=== PATIENT | female | born 1990 | race Caucasian/White ===

== ENCOUNTER → 2017-08-20 13:45 | Outpatient (CLI) | payer MEDICAID, SELFPAY ==
--- NOTE | 2017-08-20 13:45 | DT_ITS ---
This patient was seen during an EMR downtime August 19, 2017 - August 26, 2017. This patient may have a combination of paper and electronic documentation or all paper documentation. All documentation is viewable within the e-chart portion of [facility] for each patient visit.
--- NOTE | 2017-08-20 13:45 | DT_ITS ---
This patient was seen during an EMR downtime August 19, 2017 - August 26, 2017. This patient may have a combination of paper and electronic documentation or all paper documentation. All documentation is viewable within the e-chart portion of [employer] for each patient visit.
[2017-09-04 09:44] LABS: HPV APTIMA, High Risk Negative (Negative)
== END ==
PROVIDERS: Visit Provider Obstetrics & Gynecology
DX: Z12.4 Encounter for screening for malignant neoplasm of cervix (principal)
CPT/HCPCS: 88175; G0145

== ENCOUNTER → 2018-12-16 15:15 | Outpatient (CLI) | payer MEDICAID, SELFPAY ==
[2017-03-31 22:35] VITALS: BMI 19.1
== END ==
PROVIDERS: Visit Provider Obstetrics & Gynecology
DX: Z12.4 Encounter for screening for malignant neoplasm of cervix (principal); Z11.3 Encounter for screening for infections with a predominantly sexual mode of transmission

== ENCOUNTER → 2019-01-27 13:45 | Outpatient (CLI) | payer MEDICAID, SELFPAY ==
--- NOTE | 2019-01-27 | IMM_PTH ---
PATIENT: BELLA LORENZANA LOC: [facility] U#:[id number] AGE/SX: 34/F ROOM: RE01/27/[address]: Dr. Roberta Romeo MD : 1990 BED: DIS: SPEC #: [id number] RECD: 01/29/19 11:34 STATUS: DEQUAN ISAIAH #: [id number] STEPHANIE: 01/27/19 00:[address]: Roberta Childs DEPT: IMMUNOHISTOCHEMISTRY RECD BY: Rita Manuel Tissues: A - Uterine cervix, NOS Procedures: p16 (initial) KI-67 (add) PHYSICIAN & INSTITUTION [place] [id number] SPECIMEN INFORMATION: Tissue Source: A - Cervix, 9 o'clock, biopsy Clinical Info: Mild dysplasia, ASCUS, positive HPV Specimen Number: [id number] CPT code: 46848, 92433 METHODOLOGY: Deparaffinized sections of prefer/formalin-fixed tissue or PAP/DQ stained slides are incubated with monoclonal/polyclonal antibodies/oligonucleotide probes. Localization is made via biotin free immunoperoxidase method. Appropriate controls are performed and reacted as expected. Results on target cell population are indicated in the following table: RESULTS: ANTIBODY / CLONE RESULT Block A P16 (E6H4) positive, focal and patchy Ki-67 (30-9) negative These tests were developed and their performance characteristics determined by [facility]. They may not have been cleared or approved by the U.S. Food and Drug Administration. The FDA has determined that such clearance or approval is not necessary. The above immunohistochemical/dualISH markers are ordered and reviewed by the Pathologist. INTERPRETATION: A. Cervix, 9 o'clock, biopsy: Focal minimal changes suspicious for HPV cytopathic effects. SJ:phu 01/29/19
--- NOTE | 2019-01-27 11:45 | CER_PTH ---
PATIENT: BELLA LORENZANA [facility][id number] AGE/SX: 34/F ROOM: RE01/27/[address]: Dr. Roberta Romeo MD : 1990 BED: DIS: SPEC #: [id number] RECD: 01/27/19 15:44 STATUS: DEQUAN ISAIAH #: [id number] STEPHANIE: 01/27/19 11:[address]: Roberta Childs DEPT: SURGICAL PATHOLOGY RECD BY: Darvin Wolf Tissues: A - Uterine cervix, NOS B - Endocervical Procedures: Surgery Specimen Level IV HEADER OPERATION: Colposcopy PRE-OP DIAGNOSIS: Mild dysplasia, ASCUS, positive HPV on pap; [facility] 12/27 TISSUE SUBMITTED: A - Cervical at 9 o'clock, B - ECC MICROSCOPIC DIAGNOSIS A. Cervix, 9 o'clock, biopsy: Focal minimal changes suspicious for HPV cytopathic effects. See comment. B. ECC: Fragments of benign endocervical epithelium and endocervical mucosa and mucous. A few fragments of benign endometrial tissue. Negative for dysplasia. CARRILLO:phu 01/29/19 COMMENT A. Immunohistochemistry ([id number]) for surrogate HPV marker (p16) will be performed and results will be reported separately. MICROSCOPIC DESCRIPTION Slides are reviewed. GROSS DESCRIPTION A - Received in fixative is one container labeled with the patient's name and designated 9 o'clock cervix. The specimen consists of multiple minute fragments of goncalves soft tissue that in aggregate measure 0.2 x 0.2 x <0.1 cm. The specimen is totally submitted in one cassette. B - Received in fixative is one container labeled with the patient's name and designated ECC. The specimen consists of multiple irregular fragments of goncalves mucoid tissue that in aggregate measure 2 x 0.5 x 0.1 cm. The specimen is totally submitted in one cassette. / CARRILLO:phu 01/28/19 TC:5 CPT: 45635 x2
== END ==
PROVIDERS: Visit Provider Obstetrics & Gynecology
DX: N87.0 Mild cervical dysplasia (principal)
CPT/HCPCS: 88305; 88341; 88342

== ENCOUNTER 2019-04-20 16:32 | Emergency (ER) | payer MEDICAID, SELFPAY ==
[2019-04-20 16:32] VITALS: BP 112/59; PULSE 92; RESP 16; TEMP 37.1; O2SAT 96; BMI 17.2
--- NOTE | 2019-04-20 17:00 | CT_ITS ---
STUDY: CT ABDOMEN AND PELVIS WITH CONTRAST REASON FOR EXAM: Female, 28 years old. RLQ PAIN RADIATION DOSAGE (If Supplied By Facility): CTDIvol = ( 8.93 ) mGy, DLP = ( 212.36 ) mGycm TECHNIQUE: Transaxial images were obtained from the dome of the diaphragm to the symphysis pubis with oral contrast. Oral and amp; IV Gastrografin and amp; 75mL Isovue-300 was administered. Sagittal and coronal images were reconstructed. Individualized dose optimization techniques were used for this CT. COMPARISON: None. FINDINGS: The visualized lung bases are unremarkable. The visualized portions of the heart are within normal limits. Normal liver. Normal gallbladder and extrahepatic biliary system. Normal spleen. Normal pancreas. Normal bilateral adrenal glands. Normal right kidney. Normal left kidney. Normal visualized stomach. Normal small intestine. Normal colon. The appendix is visualized and appears normal. Normal abdominal aorta. Normal inferior vena cava. Normal retroperitoneum. Normal urinary bladder. Normal visualized uterus. Rim-enhancing right ovarian follicle is likely related to recently ruptured follicle. Trace right adnexal fluid. Normal abdominal wall. Normal osseous structures. CT/Abdomen/Pelvis WITH Contrast IMPRESSION: Unremarkable appendix. Likely recently ruptured right ovarian follicle. Remainder is within normal limits Electronically Signed: Luis Zazueta DO at 19:14 EST Tel , Service support ,
--- NOTE | 2019-04-20 17:17 | ED.VISSUMM ---
- ER Visit Summary Date of Service: 04/20/19 Chief Complaint: Right lower quadrant abdominal pain History of Present Illness: The patient is a 28 F presenting with right lower quadrant abdominal pain. Patient states this started on Saturday. It has progressively worsened. She denies nausea, vomiting, diarrhea. Denies constipation. She complains of mild dysuria. She denies fever. She has a history of ovarian cyst in the past. Denies other complaints. Physical Examination: Vitals are stable. Patient is afebrile. Alert no acute distress. HEENT exam is unremarkable. Neck is supple. Lungs are clear and equal bilaterally. Heart is regular rate and rhythm. Abdomen is soft right lower quadrant tenderness with no guarding or rebound Extremities are unremarkable. Skin is warm and dry. No focal neurologic deficit. Remainder of exam is unremarkable. Emergency Department Course and Treatment: Patient was given morphine, Zofran IV. CBC shows white count 12.1. Chemistries unremarkable other than glucose 61. She was able to tolerate p.o. in the emergency department. Liver lipase are normal. Urinalysis unremarkable. hCG negative. CT abdomen pelvis shows unremarkable appendix. Likely recently ruptured right ovarian follicle. Remainder is within normal limits. Patient was given Toradol IV. She is given prescription for Naprosyn. Advised to follow-up with her STATE ARCHIVIST. Advised return to ED if worsening complaints. Disposition: Discharge home Impression: Abdominal pain This note was generated with [employer] dictation software. It may contain incorrect words, spelling, and punctuation that were not noted in review of the chart prior to signing ED Disposition - Plan for ED Patient: Disposition: Home or Assisted Living Instructions: Ovarian Cyst Prescriptions: Naproxen [Naprosyn] 500 mg PO BID PRN #20 tab Prescription Printed Referrals: Roberta Farmer MD [STAFF PHYSICIAN] -
[2019-04-20 17:21] LABS: Bacteria 0 SEEN /hpf (None Seen); Mucous, Urine 0 SEEN /hpf (<or=2+); Red Blood Cells-Urine 0 SEEN /hpf (0-5); White Blood Cells 0 SEEN /hpf (0-5)
[2019-04-20 17:36] LABS: Color, Urine Yellow (Yellow); Glucose, Dipstick Normal (Normal); Ketone-Dipstick Negative (Negative); Leukocyte Esterase-Dipstick Negative /ul (Negative); Nitrite-Dipstick Negative (Negative); Occult Blood-Urine Negative /ul (Negative); Protein-Dipstick Negative (Negative); Specific Gravity, Urine 1.015 (1.002-1.030); Urine Bilirubin Dipstick Negative (Negative); Urine Clarity Clear (Clear); Urine Urobilinogen Normal (Normal)
[2019-04-20 17:41] LABS: Absolute Lymphocyte Count 1.61 X10^3/uL (0.83-4.51); Basophil# 0.06 X10^3/uL; Basophil% 0.5 % (0-1); Eosinophil# 0.13 X10^3/uL; Eosinophils% 1.1 % (0-5); Hematocrit 39.4 % (37-47); Hemoglobin 12.8 g/dL (12.0-15.0); Lymphocyte # 1.61 X10^3/ul (4.0); Lymphocyte % 13.3 % (19-41); Mean Corp Hgb Conc 32.5 g/dL (32-36); Mean Corpuscular Hgb 30.5 pg (27.0-32.0); Mean Corpuscular Volume 93.8 fL (81-99); Mean Platelet Vol. 10.6 fl (6.2-12.0); Monocyte# 1.28 X10^3/uL; Monocyte% 10.6 % (0-10); NRBC Flagged by Analyzer 0 % (0-5); Neutrophil # 8.99 X10^3/uL (2.7-7.7); Neutrophil % 74.1 % (47-70); Platelet Count 283 K/mm3 (150-450); RBC Distribution Width CV 13.3 % (11.6-14.6); RBC Distribution Width SD 45.6 fl (35.1-43.9); White Blood Count 12.1 K/mm3 (4.4-11.0)
[2019-04-20 17:52] LABS: Internal QC Validated? YES +Cl - CLEAR BKGD; Pregnancy, Serum, hCG Quali. NEGATIVE Negative
[2019-04-20] MEDS: Morphine 4 MG/ML Syringe IV (17:52)
[2019-04-20] MEDS: Ondansetron 4 MG/2 ML Vial IV (17:52)
[2019-04-20 17:55] LABS: Squamous Epithelial Cells - UA 0-5 SEEN /hpf (5-10)
[2019-04-20 17:58] LABS: ALB/GLOB Ratio 1.5 RATIO (0.9-2.4); AST(SGOT) 9 U/L (15-37); Alanine Aminotransfer ALT/SGPT 18 U/L (13-56); Albumin, Serum 4.8 g/dL (3.2-5.0); Alkaline Phosphatase 52 U/L (45-117); Anion Gap 3 (5-15); BUN 9 mg/dL (7-18); BUN/Creat Ratio 13.5 RATIO (10-20); Calcium,Total 9.3 mg/dL (8.5-10.1); Chloride 111 mmol/L (98-107); Creatinine, Serum 0.67 mg/dL (0.55-1.02); EST Glomerular Filtration Rate 110 mL/min (>60); Est Glom Filt Rate - Afr Amer 133 mL/min (>60); Estimated Creatinine Clearance 85.28 ml/min; Globulin 3.2 g/dL (2.2-4.2); Glucose 61 mg/dL (74-106); Lipase 94 U/L (73-393); Potassium 3.4 mmol/L (3.5-5.1); Sodium Level 142 mmol/L (136-145)
[2019-04-20 18:41] VITALS: BP 104/59; PULSE 67; RESP 16; O2SAT 100
--- NOTE | 2019-04-20 19:40 | ED.DEP ---
ED Disposition - Plan for ED Patient: Instructions: Ovarian Cyst Prescriptions: Naproxen [Naprosyn] 500 mg PO BID PRN #20 tablet Referrals: Roberta Farmer MD [STAFF PHYSICIAN] -
[2019-04-20 19:54] VITALS: BP 94/40; PULSE 70; RESP 16; O2SAT 100
[2019-04-20] MEDS: Ketorolac 30 MG/ML Syringe IV (19:58)
== END 2019-04-20 20:00 | disposition home or self-care (01) ==
LOC: ED 17:22
PROVIDERS: Emergency Provider Emergency Medicine
DX: N83.201 Unspecified ovarian cyst, right side (principal); R10.31 Right lower quadrant pain; Z72.0 Tobacco use
CPT/HCPCS: 74177; 80053; 81001; 83690; 84703; 85025; 96374; 96375; 99283; J7030; Q9967; A4216; J2405

== ENCOUNTER → 2019-12-29 | Outpatient (CLI) | payer MEDICAID, SELFPAY ==
[2020-01-04 18:06] LABS: HPV APTIMA, High Risk Negative (Negative)
== END | disposition home or self-care (01) ==
LOC: LABSPEC 15:12
PROVIDERS: Visit Provider Obstetrics & Gynecology
DX: Z12.4 Encounter for screening for malignant neoplasm of cervix (principal)
CPT/HCPCS: 87624; 88175; G0145

== ENCOUNTER 2020-01-25 10:07 | Outpatient (RCR) | payer MEDICAID, SELFPAY | END 2020-02-15 23:59 | LOC: NS 10:07 | PROVIDERS: Visit Provider Obstetrics & Gynecology | DX: Z71.3 Dietary counseling and surveillance (principal); R63.8 Other symptoms and signs concerning food and fluid intake | CPT/HCPCS: 97802 ==

== ENCOUNTER 2020-01-27 20:25 | Emergency (ER) | payer MEDICAID, SELFPAY ==
[2020-01-27 20:26] VITALS: BP 118/60; PULSE 90; RESP 18; TEMP 36.4; O2SAT 97; BMI 17.3
--- NOTE | 2020-01-27 22:05 | ED.VIS.INJ ---
History of Present Illness Chief Complaint: Head Injury Informant: Patient Onset: Today Mechanism/Context: Blunt Injury Narrative: Patient is a 29-year-old female with history of traumatic headn injury presenting after hitting the top of her head. Patient is in a new house and was going down the stairs. States the stairs are more narrow than normal and she missed one of the last steps. This caused her to try to catch herself and fell forward. She is hit the top of her head on the door frame. She did not lose consciousness. She was bleeding and came to emergency room for further evaluation. Patient states her tetanus was within the last 5 years. Plan of a mild headache. No vision changes. No associated nausea and vomiting. No numbness or tingling. No weakness. Feels that she is been acting normally. No other complaints at this time. Tetanus Immunization: <5 years Past Medical History - Allergies and Home Meds Allergies/Adverse Reactions: Allergies No Known Allergies Allergy (Verified 01/27/20 20:28) Primary Care Physician: Care Physician,No Primary [Primary Care Provider] - Past Medical History: None Surgical History: noncontributory Lives: With Family Smoking Status: Current every day smoker Review of Systems General: Denies: Chills, Fever, Sweats Eyes: Denies: Visual changes - bilaterally, Diplopia ENT: Denies: Rhinorrhea, Sore throat Cardiovascular: Denies: Chest pain, Palpitations Respiratory: Denies: Dyspnea, Cough, Dyspnea on exertion Gastrointestinal: Denies: Abdominal pain, Nausea, Vomiting, Diarrhea, Melena, Hematochezia Genitourinary: Denies: Dysuria, Hematuria, Frequency Musculoskeletal: Denies: Back pain, Extremity Pain Skin: Reports: Wounds - scalp . Denies: Rash Neurological: Reports: Headache. Denies: Weakness, Numbness Physical Exam Vital Signs/Narrative: Vital Signs Temp Pulse Resp BP Pulse Ox 01/27/20 20:26 97.6 F L 90 18 118/60 97 Inital Vital Signs reviewed: Yes General: Well nourished, Well developed Head: Normocephalic, Trauma Eyes: Perrl, EOMI ENT: TM's clear, No hemotympanum or drainage, No trauma. Negative for: Nasal septal hematoma Neck: Nontender, Full ROM. Negative for: Spinal Tenderness, Paraspinal Tenderness Cardiovascular: Regular rate, Regular rhythm, No murmurs Respiratory: No distress, CTA bilaterally, Chest nontender Abdomen: Soft, Nontender, Nondistended, Normal bowel sounds Back: Nontender Skin: Normal color, No rash, Trauma - 2.5 cm linear laceration on the top of the head. No active bleeding. Full thickness., Wound edges are well approximated. Neurological: Alert, Oriented x3, Cranial nerves II-XII grossly intact, Normal Strength, Normal Sensation Psychological: Normal affect - Glascow Coma Scale Eye Opening: Spontaneous Motor: Obeys Commands Verbal: Oriented Coma Scale Total: 15 Diagnostic/Tx/Re-eval - Medical Decision Making Patient is evaluated for head injury. She had no loss of consciousness. She is a normal neurologic exam. I do not think a head CT is indicated at this time. She is not on any anticoagulation. She has no other injuries. Her tetanus is up-to-date. Dermabond used with hair apposition technique for laceration repair. See procedure note. Patient counseled on concussion care and indications to return the emergency room. Patient is counseled on signs and symptoms requiring return to the emergency room. Patient verbalizes agreement and understand this plan. Patient discharged home in stable and improved condition. Laceration No standard instances Length: 0.98 in Depth: Skin Shape: Linear Laceration Repair: Dermabond Irrigated (ml): 200 Comment: Hair apposition technique used to approximate the wound and then Dermabond applied. ED Disposition - Plan for ED Patient: Diagnosis: Scalp laceration, Fall Instructions: ED Laceration Skin Adhesive, ED CONTUSION Scalp [No Wake Up] Referrals: Nils Ty MD [STAFF PHYSICIAN] - Additional Instructions: Alternate ibuprofen and Tylenol as needed for headache or discomfort. Follow-up with your primary care doctor. Return the emergency room with any worsening symptoms.
== END 2020-01-27 22:35 | disposition home or self-care (01) ==
LOC: ED 21:51
PROVIDERS: Emergency Provider Emergency Medicine
DX: S01.01XA Laceration without foreign body of scalp, initial encounter (principal); W22.8XXA Striking against or struck by other objects, initial encounter; Y93.01 Activity, walking, marching and hiking; Y92.008 Other place in unspecified non-institutional (private) residence as the place of occurrence of the external cause; Y99.9 Unspecified external cause status; F17.200 Nicotine dependence, unspecified, uncomplicated
CPT/HCPCS: 12001; 99282

== ENCOUNTER 2020-01-31 14:11 | Emergency (ER) | payer MEDICAID, SELFPAY ==
[2020-01-31 14:12] VITALS: BP 100/54; PULSE 79; PULSE 90; RESP 16; TEMP 36.2; O2SAT 100; O2SAT 99; BMI 16.9
--- NOTE | 2020-01-31 14:23 | CT_ITS ---
STUDY: CT BRAIN WITHOUT CONTRAST REASON FOR EXAM: Female, 29 years old. Fell 4 days ago hitting top of head (laceration was glued), complains of continued headache, fatigue. RADIATION DOSAGE (If Supplied By Facility): CTDIvol = ( 44.99 ) mGy, DLP = ( 745.49 ) mGycm TECHNIQUE: Transaxial CT imaging of the brain was performed without administration of intravenous contrast material. Individualized dose optimization techniques were used for this CT. COMPARISON: No relevant priors. FINDINGS: Normal soft tissue structures. Normal calvarium. Normal size ventricles and extra-axial spaces for the patient''s age. Normal white matter tracts of the cerebral hemispheres. Normal basal ganglia and thalami. Normal brainstem. Normal cerebellum. There is no intracranial hemorrhage. There are no findings of an acute ischemic infarction. Normal visualized paranasal sinuses. CT/Brain/Head without Contrast IMPRESSION: Normal unenhanced CT scan of the brain. Electronically Signed: Joyce Ferreira MD at 15:08 EST Tel , Service support ,
--- NOTE | 2020-01-31 14:28 | ED.VISSUMM ---
- ER Visit Summary Date of Service: 01/31/20 Chief Complaint: Headache History of Present Illness: The patient is a 29 F who returns to the ED after headache. She was seen in the emergency department 4 days ago after falling down some steps. She did hit her head. No LOC at the time. She sustained a scalp laceration. She opted not to have any imaging studies at that time and had her laceration repaired with Dermabond. She continues to have a headache and is feeling more fatigued at home. Denies any slurred speech or facial droop. No weakness of her arms or legs. She takes no blood thinning medications. Physical Examination: Vital signs reviewed. Her scalp does have a healing laceration which is healing appropriately. HEENT exam unremarkable. Heart is regular rate and rhythm without murmurs. Lungs are clear to auscultation. Abdomen is soft and nontender. Her back is nontender. Extremities reveal no edema. Skin exam normal. Neurologic exam normal. Test Results: CAT scan of the head is normal Emergency Department Course and Treatment: The patient's CAT scan is unremarkable for any traumatic injury. Patient will continue NSAIDs for headache at home. She will follow-up with her PCP for further testing if her headache persists. Treatment Plan: [] Disposition: Discharge Impression: Headache status post trauma This note was generated with [employer] dictation software. It may contain incorrect words, spelling, and punctuation that were not noted in review of the chart prior to signing ED Disposition - Plan for ED Patient: Disposition: Home or Assisted Living Instructions: ED Headache Unspecified Referrals: Care Physician,No Primary [Primary Care Provider] - Lizzie Cowan MD [STAFF PHYSICIAN] -
[2020-01-31 15:20] VITALS: BP 102/62; RESP 15; O2SAT 100
== END 2020-01-31 15:21 | disposition home or self-care (01) ==
PROVIDERS: Emergency Provider Emergency Medicine
DX: R51.9 Headache, unspecified (principal); W10.9XXA Fall (on) (from) unspecified stairs and steps, initial encounter
CPT/HCPCS: 70450; 99282

== ENCOUNTER 2020-12-22 19:33 | Emergency (ER) | payer MEDICAID, SELFPAY ==
[2020-12-22 19:35] VITALS: BP 90/56; PULSE 65; RESP 16; TEMP 37.4; O2SAT 97; BMI 17.6
--- NOTE | 2020-12-22 20:45 | EX.ED.DYSGE1 ---
HPI History of Present Illness Chief Complaint: General Illness Informant: patient Onset/Context/Timing Onset: Today Current Severity: Gone Narrative Narrative: Patient presents needing a Covid test so that she can return to work. Patient's son was seen here in the emergency department tonight and tested positive for Covid. Mother denies any symptoms for Covid. Mother states that her boss requires her to have a negative Covid test because of the close exposure to Covid. PFSH PFSH no medical history Home Medications mometasone 50 mcg/actuation nasal spray 2 spray INTRANASAL DAILY PRN #17 gm 06/14/20 [Rx Last Taken Unknown] Allergy/AdvReac Type Severity Reaction Status Date / Time No Known Allergies Allergy Verified 12/22/20 19:34 Surgical History H/O tubal ligation Social History Smoking Status: Current every day smoker tobacco type: cigarettes ROS ROS ED Constitutional Constitutional ED: Denies chills or fever(s) Eyes Eyes: Denies blurry vision or change in vision ENT ENT ED: Denies rhinorrhea or sore throat Cardiovascular Cardiovascular: Denies chest pain or palpitations Respiratory/Chest Respiratory/Chest: Denies cough or dyspnea Gastrointestinal Gastrointestinal: Denies nausea or vomiting Genitourinary Genitourinary ED: Denies dysuria or hematuria Musculoskeletal Musculoskeletal: Denies back pain or neck pain Integumentary Denies abscess or rash Neurologic Neurologic: Denies headache(s) or weakness Allergic/Immunologic Allergic/Immunologic ED: Denies mouth swelling or urticaria EXAM Physical Exam Const Vital Signs: 12/22/20 19:35 12/22/20 19:39 Temperature 99.3 F H Temperature Source Temporal Pulse Rate 65 Respiratory Rate 16 Respiratory Effort Normal Non-Labored Respiratory Pattern Normal Blood Pressure 90/56 L Blood Pressure Mean 67 Pulse Ox 97 Oxygen Delivery Method Room Air Positive well nourished and well developed General Appearance ED: well developed HEENT Reports moist mucous membranes Neck supple and no JVD Resp normal respiratory effort and clear to auscultation bilaterally Cardio regular rate and regular rhythm GI normal to inspection, nondistended, normoactive bowel sounds and non-tender Palpation: soft Extremity normal to inspection General Extremety ED: Negative for edema or tenderness General Extremity: Negative for edema Neuro oriented x3, CN's II-XII intact bilaterally and no sensory deficits noted Sensorium / Orientation: alert Motor Exam: strength 5/5 throughout Psych mental status grossly normal MDM MDM MDM Narrative Medical decision making narrative: COVID-19 rapid antigen was obtained and was negative. Patient stated that she told her boss this and he told her that she needed a PCR test. This was ordered. This will be a send out test. Patient was instructed to quarantine until her results come back. Patient was instructed to follow-up with her primary care physician in 5 to 7 days. Patient understood and was agreeable with the plan. All questions were answered. Discharge Plan Triage Chief Complaint: General Illness ED Provider: Jah Kenny Dx/Rx/DC Orders Clinical Impression: Close exposure to COVID-19 virus Instructions: Coronavirus Disease 2019 (COVID-19): Overview Prescriptions: No Action mometasone [Nasonex] 50 mcg/actuation spray,non-aerosol 2 spray INTRANASAL DAILY PRN (Reason: allergy symptoms) Qty: 17 RF: 0 Primary Care Provider: Care Physician,No Primary Referrals: Colby Dupree MD [NON-STAFF] - 5-7 Days Care Physician,No Primary [Primary Care Provider] - Disposition Disposition: Home, Self Care Discharge Date/Time: 12/22/20 21:09
[2020-12-22 23:22] LABS: Probe Check PASS; Specimen Processing Control PASS
== END 2020-12-22 21:09 | disposition home or self-care (01) ==
PROVIDERS: Emergency Provider Emergency Medicine
DX: Z20.822 Contact with and (suspected) exposure to COVID-19 (principal); F17.210 Nicotine dependence, cigarettes, uncomplicated
CPT/HCPCS: 87426; 87635; 99282; U0005; U0003

== ENCOUNTER 2021-04-23 12:42 | Emergency (ER) | payer MEDICAID, SELFPAY ==
[2021-04-23 12:43] VITALS: BP 113/79; PULSE 86; RESP 16; TEMP 36.6; O2SAT 98; BMI 17.2
[2021-04-23 13:28] LABS: Absolute Lymphocyte Count 2.27 X10^3/uL (0.83-4.51); Basophil# 0.05 X10^3/uL; Basophil% 0.5 % (0-1); Eosinophil# 0.08 X10^3/uL; Eosinophils% 0.9 % (0-5); Hemoglobin 11.7 g/dL (12.0-15.0); Lymphocyte # 2.27 X10^3/ul (0.83-4.51); Lymphocyte % 24.5 % (19-41); Mean Corp Hgb Conc 32.5 g/dL (32-36); Mean Corpuscular Hgb 30.2 pg (27.0-32.0); Mean Platelet Vol. 11.2 fl (6.2-12.0); Monocyte# 0.83 X10^3/uL; NRBC Flagged by Analyzer 0 % (0-5); Neutrophil # 6.01 X10^3/uL (2.7-7.7); Neutrophil % 64.9 % (47-70); Platelet Count 244 K/mm3 (150-450); RBC Distribution Width CV 13.5 % (11.6-14.6); RBC Distribution Width SD 45.9 fl (35.1-43.9); Red Blood Count 3.87 M/mm3 (4.2-5.4); White Blood Count 9.3 K/mm3 (4.4-11.0)
[2021-04-23] MEDS: Ketorolac 15 MG/ML Vial IV (13:30)
--- NOTE | 2021-04-23 13:36 | EDS_ITS ---
HPI <JOSE CARLOS Coffman - Last Filed: 04/23/21 21:09> History of Present Illness Chief Complaint: Abd Pain Narrative Narrative: 30-year-old female with PMH of tubal ligation, ovarian cysts presents with abdominal pain. Over the last few days she has had diffuse abdominal pain worse in her lower pelvic region and epigastric regions. Yesterday she started her menstrual cycle and today had intercourse which caused worsening pain and heavier bleeding. She denies fever, chills, nausea, vomiting, or urinary or bowel changes. No recent vaginal discharge. She states she drinks alcohol on the weekends and yesterday had 2 beers and 1 shot. PFSH <JOSE CARLOS Coffman - Last Filed: 04/23/21 21:09> PFSH Medical History (Updated 04/23/21 @ 16:51 by JOSE CARLOS Coffman) Hx of ovarian cyst Home Medications naproxen 500 mg PO BID PRN #20 tab 04/23/21 [Rx Last Taken Unknown] ondansetron 4 mg PO Q8H PRN PRN #10 tab 04/23/21 [Rx Last Taken Unknown] oxycodone-acetaminophen [Percocet] 1 tab PO Q6H PRN 3 Days #12 tab 04/23/21 [Rx Last Taken Unknown] Allergy/AdvReac Type Severity Reaction Status Date / Time No Known Allergies Allergy Verified 04/23/21 12:46 Surgical History H/O tubal ligation Social History Smoking Status: Current every day smoker tobacco type: cigarettes ROS <JOSE CARLOS Coffman - Last Filed: 04/23/21 21:09> ROS ED ROS Narrative Constitutional: Negative for fever, chills, malaise. Eyes: Negative for visual change. ENT: Negative for sore throat, ear pain, rhinorrhea. CVS: Negative for palpitations, chest pain, syncope. Respiratory: Negative for shortness of breath, cough, orthopnea. GI: Positive for abdominal pain. Negative for nausea, vomiting, diarrhea, constipation, melena, hematochezia. : Negative for dysuria, hematuria or frequency. Neuro: Negative for headache, motor/sensory dysfunction. Skin: Negative for rash, abscess, or wound. Heme: Negative for easy bruising, bleeding, lymphadenopathy. EXAM <JOSE CARLOS Coffman - Last Filed: 04/23/21 21:09> Physical Exam Narrative Exam Narrative: CONST: Patient sitting in no acute distress. EYES: Normal inspection. NECK: Normal inspection. RESP: No respiratory distress, CTAB. CVS: Regular rate and rhythm, no murmur, no gallop. ABD: Soft with diffuse tenderness worse in bilateral lower quadrants, no guarding or rebound, nondistended, no hepatosplenomegaly. Back: Normal inspection, no CVA tenderness. : Normal external genitalia, moderate amount of dark red blood in the vaginal vault with no evidence of laceration or tear, normal-appearing cervix. SKIN: Color normal, no rash, warm, dry, intact. EXTREMITIES: Normal appearance, no pedal edema. NEURO: Oriented x4. PSYCH: Normal affect. Const Vital Signs: 04/23/21 12:43 Temperature 97.9 F Temperature Source Oral Pulse Rate 86 Respiratory Rate 16 Blood Pressure 113/79 Blood Pressure Mean 90 Pulse Ox 98 Oxygen Delivery Method Room Air <Dr. Flor Chappell MD - Last Filed: 04/23/21 17:32> Physical Exam Const Vital Signs: 04/23/21 12:43 Temperature 97.9 F Temperature Source Oral Pulse Rate 86 Respiratory Rate 16 Blood Pressure 113/79 Blood Pressure Mean 90 Pulse Ox 98 Oxygen Delivery Method Room Air MDM <JOSE CARLOS Coffman - Last Filed: 04/23/21 21:09> [facility] Narrative Medical decision making narrative: Patient presented with abdominal pain. She appears well nontoxic. Vital signs are within normal limits. She has diffuse abdominal tenderness with no peritoneal signs. Pelvic exam showed normal- appearing cervix with blood in the vaginal vault but no evidence of tears or lacerations. This is consistent with her being on her menstrual cycle and there is no other abnormality. Basic labs obtained and are unremarkable. Urine has blood but no infection. test is negative. CT shows 3 cm right hemorrhagic ovarian cyst. She had improvement after analgesia and is comfortable going home and I prescribed Percocet and Zofran. I advised she follow-up with her [employer] SALESPERSON and return for new or worsening symptoms. Diagnoses 1. Abdominal pain 2. Right hemorrhagic ovarian cyst Lab Data Labs: Laboratory Results - last 24 hr 04/23/21 04/23/21 04/23/21 12:55 12:55 14:38 WBC 9.3 RBC 3.87 L Hgb 11.7 L Hct 36.0 L MCV 93.0 MCH 30.2 MCHC 32.5 RDW Std Deviation 45.9 H RDW Coeff of Gi 13.5 Plt Count 244 MPV 11.2 Immature Gran % (Auto) 0.200 Neut % (Auto) 64.9 Lymph % (Auto) 24.5 [place] % (Auto) 9.0 Eos % (Auto) 0.9 Baso % (Auto) 0.5 Absolute Neuts (auto) 6.0 Absolute Lymphs (auto) 2.27 Nucleated RBC % 0 Sodium 139 Potassium 3.5 Chloride 109 H Carbon Dioxide 22.0 Anion Gap 8 BUN 12 Creatinine 0.70 Estim Creat Clear Calc 80.14 Est GFR (MDRD) Af Amer 123 Est GFR (MDRD) Non-Af 102 BUN/Creatinine Ratio 17.1 Glucose 109 H Calcium 8.9 Total Bilirubin 0.40 AST 18 ALT 15 Alkaline Phosphatase 56 Total Protein 7.7 Albumin 4.3 Globulin 3.4 Albumin/Globulin Ratio 1.3 Lipase 69 L Urine Color Yellow Urine Clarity Sl. Cloudy Urine pH 5.0 Ur Specific [place] 1.025 Urine Protein 30 H Urine Glucose (UA) Normal Urine Ketones 50 H Urine Occult Blood 250 H Urine Nitrite Negative Urine Bilirubin 1 H Urine Urobilinogen Normal Ur Leukocyte Esterase 25 H Urine RBC > 100 SEEN Urine WBC 0 SEEN Ur Squamous Epith Cells 0-5 SEEN Urine Bacteria 0 SEEN Urine Mucus 1+ Urine Test Negative Radiography Diagnostic Testing: Clinical Impression(s) from Imaging Studies Abdomen/Pelvis CT 04/23/21 15:57 IMPRESSION: 1. 3 cm right ovarian hemorrhagic cyst associated with small amount of free fluid within the pelvis. 2. Nonobstructive 3 mm left renal stone. Individualized dose optimization techniques were used for this CT. at 1634 Reported and signed by: Jeff Gonzalez MD Electronically Signed: Jeff Gonzalez MD at 16:33 EST , <Dr. Flor Chappell MD - Last Filed: 04/23/21 17:32> [facility] Lab Data Labs: Laboratory Results - last 24 hr 04/23/21 04/23/21 04/23/21 12:55 12:55 14:38 WBC 9.3 RBC 3.87 L Hgb 11.7 L Hct 36.0 L MCV 93.0 MCH 30.2 MCHC 32.5 RDW Std Deviation 45.9 H RDW Coeff of Gi 13.5 Plt Count 244 MPV 11.2 Immature Gran % (Auto) 0.200 Neut % (Auto) 64.9 Lymph % (Auto) 24.5 [place] % (Auto) 9.0 Eos % (Auto) 0.9 Baso % (Auto) 0.5 Absolute Neuts (auto) 6.0 Absolute Lymphs (auto) 2.27 Nucleated RBC % 0 Sodium 139 Potassium 3.5 Chloride 109 H Carbon Dioxide 22.0 Anion Gap 8 BUN 12 Creatinine 0.70 Estim Creat Clear Calc 80.14 Est GFR (MDRD) Af Amer 123 Est GFR (MDRD) Non-Af 102 BUN/Creatinine Ratio 17.1 Glucose 109 H Calcium 8.9 Total Bilirubin 0.40 AST 18 ALT 15 Alkaline Phosphatase 56 Total Protein 7.7 Albumin 4.3 Globulin 3.4 Albumin/Globulin Ratio 1.3 Lipase 69 L Urine Color Yellow Urine Clarity Sl. Cloudy Urine pH 5.0 Ur Specific [place] 1.025 Urine Protein 30 H Urine Glucose (UA) Normal Urine Ketones 50 H Urine Occult Blood 250 H Urine Nitrite Negative Urine Bilirubin 1 H Urine Urobilinogen Normal Ur Leukocyte Esterase 25 H Urine RBC > 100 SEEN Urine WBC 0 SEEN Ur Squamous Epith Cells 0-5 SEEN Urine Bacteria 0 SEEN Urine Mucus 1+ Urine Test Negative Radiography Diagnostic Testing: Clinical Impression(s) from Imaging Studies Abdomen/Pelvis CT 04/23/21 15:57 IMPRESSION: 1. 3 cm right ovarian hemorrhagic cyst associated with small amount of free fluid within the pelvis. 2. Nonobstructive 3 mm left renal stone. Individualized dose optimization techniques were used for this CT. 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 Patient independently examined and interviewed. Patient presents with epigastric as well as suprapubic abdominal pain ongoing for the past several days but worse today. She is currently on her menstrual cycle. Physical exam Patient lying on her side in position. Head neck examination unremarkable. Heart is regular rate and rhythm. Lung sounds are clear. Abdomen is soft with tenderness in the epigastrium and suprapubic region. No guarding or rebound. Hypoactive but present bowel sounds are noted. Lab work obtained along with analgesia. CT flank ordered. Patient has evidence of a hemorrhagic ovarian cyst. We will write patient for pain medication at home and she will follow with her [employer]. Return instructions provided. Discharge Plan Triage Chief Complaint: Abd Pain ED Provider: Babs Tellez Dx/Rx/DC Orders Clinical Impression: Ovarian cyst Instructions: ED Ovarian Cyst Prescriptions: New naproxen 500 mg tablet 500 mg PO BID PRN Qty: 20 RF: 0 oxycodone-acetaminophen [Percocet] 5-325 mg tablet 1 tab PO Q6H PRN (Reason: pain) 3 Days Qty: 12 RF: 0 ondansetron 4 mg tablet,disintegrating 4 mg PO Q8H PRN PRN (Reason: Nausea) Qty: 10 RF: 0 Primary Care Provider: Care Physician,No Primary Referrals: Care Physician,No Primary [Primary Care Provider] - Activity Restrictions/Additional Instructions: Today your CAT scan showed a 3 cm right hemorrhagic ovarian cyst which is the cause of your pain. I prescribed Percocet and naproxen for pain as well as Zofran for nausea. Please follow-up with your [employer] AND SALESPERSON. Disposition Disposition: Home, Self Care Discharge Date/Time: 04/23/21 17:10
[2021-04-23 13:39] LABS: ALB/GLOB Ratio 1.3 RATIO (0.9-2.4); AST(SGOT) 18 U/L (15-37); Alanine Aminotransfer ALT/SGPT 15 U/L (13-56); Albumin, Serum 4.3 g/dL (3.2-5.0); Alkaline Phosphatase 56 U/L (45-117); Anion Gap 8 (5-15); BUN 12 mg/dL (7-18); BUN/Creat Ratio 17.1 RATIO (10-20); Calcium,Total 8.9 mg/dL (8.5-10.1); Chloride 109 mmol/L (98-107); EST Glomerular Filtration Rate 102 mL/min (>60); Est Glom Filt Rate - Afr Amer 123 mL/min (>60); Estimated Creatinine Clearance 80.14 ml/min; Globulin 3.4 g/dL (2.2-4.2); Glucose 109 mg/dL (74-106); Lipase 69 U/L (73-393); Potassium 3.5 mmol/L (3.5-5.1); Protein, Total 7.7 g/dL (6.4-8.2); Sodium Level 139 mmol/L (136-145)
[2021-04-23] MEDS: Morphine 2 MG/ML Syringe IV (14:17)
[2021-04-23 14:43] LABS: Bacteria 0 SEEN /hpf (None Seen); White Blood Cells 0 SEEN /hpf (0-5)
[2021-04-23 14:45] LABS: Color, Urine Yellow (Yellow); Glucose, Dipstick Normal (Normal); Ketone-Dipstick 50 mg/dl (Negative); Leukocyte Esterase-Dipstick 25 /ul (Negative); Nitrite-Dipstick Negative (Negative); Occult Blood-Urine 250 /ul (Negative); Protein-Dipstick 30 mg/dl (Negative); Specific Gravity, Urine 1.025 (1.002-1.030); Urine Bilirubin Dipstick 1 mg/dL (Negative); Urine Clarity Sl. Cloudy (Clear); Urine Urobilinogen Normal (Normal)
[2021-04-23 14:54] LABS: Internal QC Validated? YES +Cl - CLEAR BKGD; Mucous, Urine 1+ /hpf (<or=2+); Pregnancy, Urine Negative Negative; Red Blood Cells-Urine > 100 SEEN /hpf (0-5); Squamous Epithelial Cells - UA 0-5 SEEN /hpf (5-10)
--- NOTE | 2021-04-23 15:57 | CT_ITS ---
EXAM: CT ABDOMEN AND PELVIS WITHOUT INTRAVENOUS CONTRAST : 1990 CLINICAL INDICATION: Pain TECHNIQUE: Helically acquired images were obtained of the abdomen and pelvis without intravenous contrast. This CT exam was performed using one or more of the following dose reduction techniques: automated exposure control, adjustment of the mA and/or kV according to patient size, and/or use of iterative reconstruction technique. This report was created using [employer] report generation technology. COMPARISON: No prior studies are available for comparison. FINDINGS: LOWER THORAX: Unremarkable. Lung bases are clear. No cardiomegaly. No significant pericardial effusion. ABDOMEN: LIVER: Unremarkable. Homogeneous. GALLBLADDER AND BILE DUCTS: Unremarkable. No calcified gallstones. No gallbladder distention or wall edema. No intra- or extrahepatic biliary ductal dilation. PANCREAS: Unremarkable. No focal cystic mass. SPLEEN: Unremarkable. Normal size without focal cystic or solid mass. ADRENALS: Unremarkable. No nodules. KIDNEYS AND URETERS: 3 mm stone noted within the lower pole of the left kidney. No hydronephrosis. STOMACH AND BOWEL: Mild fluid distention of the distal ileum and proximal colon may represent ileus. No focal inflammatory change. PELVIS: APPENDIX: Appendix is visualised and normal in appearance. BLADDER: Unremarkable. REPRODUCTIVE: Unremarkable as visualized. No mass. ABDOMEN and PELVIS: INTRAPERITONEAL SPACE: 3 cm right adnexal heterogeneous density lesion suggestive of a hemorrhagic ovarian cyst. Small amount of free fluid is present within the cul-de-sac. No free air. BONES/JOINTS: Unremarkable. No suspicious lytic or blastic abnormality. SOFT TISSUES: Unremarkable. No discrete abdominal or pelvic wall hernia. VASCULATURE: Unremarkable. Abdominal aorta is non-dilated. LYMPH NODES: Unremarkable. No enlarged lymph nodes. CT/Abdomen/Pelvis without Cont IMPRESSION: 1. 3 cm right ovarian hemorrhagic cyst associated with small amount of free fluid within the pelvis. 2. Nonobstructive 3 mm left renal stone. Individualized dose optimization techniques were used for this CT. at 1634 Reported and signed by: Jeff Gonzalez MD Electronically Signed: Jeff Gonzalez MD at 16:33 EST Reading Location ID and State: [facility] / [place] Tel , Service support ,
== END 2021-04-23 17:10 | disposition home or self-care (01) ==
PROVIDERS: Emergency Provider Physician Assistant; Visit Provider Physician Assistant
DX: N83.201 Unspecified ovarian cyst, right side (principal); F17.210 Nicotine dependence, cigarettes, uncomplicated
CPT/HCPCS: 74176; 80053; 81001; 81025; 83690; 85025; 96361; 96374; 96375; 99284; J7030; A4216

== ENCOUNTER → 2021-09-06 | Outpatient (CLI) | payer MEDICAID, SELFPAY ==
[2021-09-08 00:07] LABS: Chlamydia By Nucleic Acid AMP Negative (Negative)
[2021-09-08 19:05] LABS: Gonococcus By Nucleic Acid AMP Negative (Negative)
[2021-09-11 17:18] LABS: HPV APTIMA, High Risk Negative (Negative)
== END | disposition home or self-care (01) ==
LOC: LABSPEC 11:35
PROVIDERS: Visit Provider Obstetrics & Gynecology
DX: Z12.4 Encounter for screening for malignant neoplasm of cervix (principal); Z11.3 Encounter for screening for infections with a predominantly sexual mode of transmission
CPT/HCPCS: 87491; 87591; 87624; 88175; G0145

== ENCOUNTER → 2025-03-10 | Outpatient (CLI) | payer MEDICAID, SELFPAY ==
--- OUTSIDE RECORDS SUMMARY | 2025-03-10 11:22 | XMS RPT_ITS | CCD ---
Author Organization [facility] Care Team Providers Care Cash Management Officer Name Role Phone MELISSA MADSEN Unavailable Unavailable STUART WHITING Unavailable Unavailab le NO PRIMARY CARE, Unavailable Unavailable MADDY POOL Unavailable Unavailable STUART WHITING Unavailable Unavailab ksenia NO PRIMARY CARE, Unavailable Unavailable NO PRIMARY CARE, Unavailable Unavailable NIKA EDDY Unavailable Unavailable STUART WHITING Unavailable Unavailab le Unavailable Primary Care Provider Unavailabl e Unavailable Primary Care Provider Unavailabl e DR JANNET MARCANO DO Attending Unavailable PHYSICIAN, NONE Primary Care Unavailable WEI TRUONG DO Attending Unavailable PHYSICIAN, NONE Primary Care Unavailable Unavailable Primary Care Provider Unavailabl LALIT Sanchez Attending Unavailable LALIT MALONE Admitting Unavailable PHYSICIAN, NONE Primary Care Physician Unavailab le PHYSICIAN, NONE Primary Care Unavailable ARIS GREEN DO Attending Unavailable PHYSICIAN, NONE Primary Care Unavailable Ginger CERDA DO Attending JAKY Savage Attending Unavailable Medications Current Medications Medication Drug Class(es) Dates Sig (Normalized) Sig (Original) acetaminophen 325 mg / HYDROcodone bitartrate 5 mg oral tablet (2 sources) Opioid Agonist Start: 12-19-2023 End: 12-22-2023 take 1 tablet by mouth every six hours as needed for pain acetaminophen-hy drocodone 325 mg-5 mg oral tablet Dose = 1 tab(s), Oral, q6h, PRN for pain, # 12 tab(s), 0 Refill(s), 52.3 Start Date: 12/23/23 Status: Ordered acetaminophen 325 mg / oxyCODONE hydrochloride 5 mg oral tablet (1 source) Opioid Agonist Start: 04-23-2021 take 1 tablet by mouth every six hours Oxycodone-Acetam inophen (Percocet) 5-325 mg tablet Active 1 TABLET PO EVERY 6 HOURS 12 3 April 23, 2021 amoxicillin 500 mg / clavulanate 125 mg oral tablet (2 sources) Penicillin-class Antibacterial Start: 12-19-2023 End: 12-24-2023 take 1 tablet by mouth every twelve hours Augmentin 500 mg-125 mg oral tablet 1 tab(s), Oral, q12h, X 5 day(s), # 10 tab(s), 0 Refill(s), 12/24/23 7:46:00 PM EDT, 52.3 Start Date: 12/19/23 Stop Date: 12/24/23 Status: Ordered cephalexin 500 mg oral capsule (7 sources) Cephalosporin Antibacterial Start: 07-28-2024 End: 08-04-2024 take 1 capsule by mouth four times daily cephALEXin (KEFLEX) 500 mg capsule Indications: Acute UTI Take 1 capsule by mouth four times daily for 7 days. 28 capsule 07/28/2024 08/04/2024 Active Start: 01-11-2024 End: 01-18-2024 take 1 capsule by mouth twice daily cephALEXin (KEFLEX) 500 mg capsule Take 1 capsule by mouth two times a day for 7 days. 14 capsule 01/11/2024 01/18/2024 Active Start: 11-28-2021 End: 12-05-2021 take 1 capsule by mouth twice daily cephALEXin (KEFLEX) 500 mg capsule Take 1 capsule by mouth twice daily for 7 days. 14 capsule 0 11/28/2021 12/05/2021 Active Comment on above: Take 1 capsule by [facility] daily for 7 days. fluconazole 150 mg oral tablet (1 source) Azole Antifungal Start: 5 End: fluconazole (DIFLUCAN) 150 mg tablet Indications: Acute UTI Take 1 tablet by mouth one time only for 1 dose. Repeat in 3 days as needed. 2 tablet 07/28/2024 07/28/2024 Active fluticasone propionate 0.05 mg/actuat metered dose nasal spray (11 sources) Corticosteroid Start: 4 take 50 ug nasal route twice daily fluticasone proprionate NASAL 50 mcg/ spray 50 mcg Dose = 1 spray(s), Nostril, each, BID, 0 Refill(s) Start Date: 12/23/23 Status: Ordered Start: 04-22-2023 take 2 spray(s) by m outh once daily fluticasone (FLONASE) 50 mcg/actuation nasal spray Indications: ETD (Eustachian tube dysfunction), bilateral Use 2 Sprays in each nostril once daily. Rinse mouth after use. 1 Each 04/22/2023 Active Start: 06-05-2006 take 2 spray(s) nasa l route once daily FLUTICASONE 50 MCG/ACTUATION NASAL SPRAY AEROSOL 2 sprays each nostril daily 1 3 06/05/2006 Active Comment on above: 2 sprays each nostri l daily hydrOXYzine hydrochloride 25 mg oral tablet (8 sources) Antihistamine Start: take 1 tablet by mouth at bedtime, then take 1 tablet by mouth once hydrOXYzine HCl (ATARAX) 25 mg tablet take 1 tablet by mouth at bedtime and 1 tablet by mouth once kyle... (REFER TO PRESCRIPTION NOTES). 10/11/2023 Active lurasidone hydrochloride 20 mg oral tablet (7 sources) Atypical Antipsychotic Start: take 1 tablet by mouth once daily at mealtime lurasidone 20 mg oral tablet take 1 tablet by mouth every evening with food Start Date: 12/23/23 Status: Ordered metroNIDAZOLE 0.0075 mg/mg vaginal gel (4 sources) Nitroimidazole Antimicrobial Start: End: metroNIDAZOLE (METROGEL) 0.75 % (37.5mg/5 gram) Vaginal Gel Use 1 Applicatorful vaginally daily at bedtime for 5 days. 70 g 01/17/2024 01/22/2024 Active Start: 01-12-2024 End: 01-19-2024 take 1 tablet by mouth twice daily metroNIDAZOLE (FLAGYL) 500 mg tablet Take 1 tablet by mouth two times a day for 7 days. 14 tablet 01/12/2024 01/17/2024 Discontinued ondansetron 4 mg disintegrating oral tablet (1 source) Serotonin-3 Receptor Antagonist Start: 04-23-2021 take 4 mg by mouth every eight hours as needed Ondansetron Active 4 MG PO EVERY 8 HOURS NEEDED April 23, 2021 1:00am phenazopyridine hydrochloride 100 mg oral tablet (2 sources) Start: 07-28-2024 End: 08-02-2024 take 1 tablet by mouth three times daily as needed phenazopyridine (PYRIDIUM) 100 mg tablet Indications: Acute UTI Take 1 tablet by mouth three times a day as needed for up to 5 days. 15 tablet 07/28/2024 08/02/2024 Active Completed/Discontinued Medications Medication Drug Class(es) Dates Sig (Normalized) Sig (Original) benzonatate 100 mg oral capsule (2 sources) Non-narcotic Antitussive Start: 11-16-2022 End: 11-13-2023 take 2 capsules by mouth every eight hours as needed benzonatate (TESSALON PERLE) 100 mg capsule Take 2 capsules by mouth three times daily as needed. 30 capsule 11/16/2022 11/13/2023 Discontinued Comment on above: Take 2 capsules by m out three times daily as needed. clindamycin 300 mg oral capsule (4 sources) Lincosamide Antibacterial Start: 08-04-2022 End: 11-13-2023 take 1 capsule by mouth three times daily clindamycin (CLEOCIN) 300 mg capsule take 1 capsule by mouth three times a day for 10 days 08/04/2022 11/13/2023 Discontinued Comment on above: take 1 capsule by mo ut three times a day for 10 days escitalopram 5 mg oral tablet (10 sources) Serotonin Reuptake Inhibitor Start: 10-20-2023 End: 01-11-2024 take 1 tablet by mouth once escitalopram oxalate (LEXAPRO) 5 mg tablet Take 1 tablet by mouth every afternoon. 10/20/2023 01/11/2024 Discontinued Start: 10-08-2023 take 1 tablet by mouth once es citalopram oxalate (LEXAPRO) 10 mg tablet Take 1 tablet by mouth every afternoon. 10/08/2023 Active ferrous sulfate 325 mg oral tablet (1 source) Start: 12-14-2013 End: 01-26-2014 take 325 mg by mouth three times daily Ferrous Sulfate Discontinued 325 MG PO THREE TIMES A DAY December 14, 2013 12:00am January 26, 2014 9:23am 12 hr guaiFENesin 600 mg extended release oral tablet (3 sources) Start: 11-16-2022 End: 01-11-2024 take 2 tablets by mouth twice daily guaiFENesin (MUCINEX) 600 mg 12 hr tablet Take 2 tablets by mouth twice daily. 24 tablet 11/16/2022 01/11/2024 Discontinued (Other) Comment on above: Take 2 tablets by mo [facility] twice daily. loratadine 10 mg oral tablet (7 sources) Start: 06-05-2006 End: 11-13-2023 LORATADINE 10 MG TAB Take one(1) tablet daily. 06/05/2006 11/13/2023 Discontinued Comment on above: Take one(1) tablet d aily. 1 ml medroxyPROGESTERone acetate 150 mg/ml injection (4 sources) Progestin End: 11-13-2023 medroxyPROGESTERone (DEPO-PROVERA) 150 mg/mL injection Inject intramuscularly. 11/13/2023 Discontinued Comment on above: Inject intramuscular ly. methylPREDNISolone 4 mg oral tablet (1 source) Corticosteroid Start: 06-14-2020 End: 06-19-2020 take 1 tablet by mouth once Methylprednisolone (Medrol (Carlo)) 4 mg tablets,dose pack Discontinued 4 MG PO per package directions 05 08June 14, 2020 12:00am June 19, 2020 12:03am naproxen 500 mg oral tablet (5 sources) Nonsteroidal Anti-inflammatory Drug Start: 08-05-2022 End: 11-13-2023 take 1 tablet by mouth three times daily at mealtime naproxen (NAPROSYN) 500 mg tablet Take 1 tablet by mouth three times daily with meals. Take with food. 21 tablet 08/05/2022 11/13/2023 Discontinued Start: 04-23-2021 take 500 mg by mouth twice daily as needed Naproxen Active 500 MG PO TWICE DAILY NEEDED April 23, 2021 1:00am Comment on above: Take 1 tablet by torres three times daily with meals. Take with food. pumpkin seed extract-soy germ (AZO BLADDER CONTROL) 300 mg cap (3 sources) pumpkin seed ext ract-soy germ (AZO BLADDER CONTROL) 300 mg cap Take by mouth. 0 Active Comment on above: Take by mouth. Problems Active Problems Problem Classification Problem Date Documented Date Episodic/Chronic Appendicitis and other appendiceal conditions (2 sources) Appendicitis; Translations: [Unspecified appendicitis] Onset: 12-19-2023 Episodic Contraceptive and procreative management (1 source) Patient encounter status; Translations: [Encounter for sterilization] Episodic Diseases of mouth; excluding dental (1 source) Ulcer of mouth; Translations: [Other forms of stomatitis] 11-13-2023 Episodic E Codes: Fall (1 source) Fall; Translations: [Unspecified fall, initial encounter] Episodic Fever of unknown origin (1 source) Fever, unspecified; Translations: [Fever, unspecified fever cause] Onset: 12-20-2023 Episodic Fluid and electrolyte disorders (1 source) Dehydration; Translations: [Dehydration] Onset: 12-20-2023 Episodic Genitourinary symptoms and ill-defined conditions (2 sources) Increased frequency of urination; Translations: [Frequency of micturition] Onset: 07-28-2024 07-28-2024 Episodic Immunizations and screening for infectious disease (4 sources) Contact with or exposure to other viral diseases; Translations: [Close exposure to COVID-19 virus] Episodic Nausea and vomiting (1 source) Nausea with vomiting, unspecified; Translations: [Nausea and vomiting, unspecified vomiting type] Onset: 12-20-2023 Episodic Open wounds of head; neck; and trunk (1 source) Scalp laceration; Translations: [Laceration without foreign body of scalp, initial encounter] Episodic Other female genital disorders (1 source) History of gynecological disorder; Translations: [Personal history of other diseases of the female genital tract] Episodic Other and delivery including normal (1 source) Vaginal delivery; Translations: [Encounter for full-term uncomplicated delivery] Episodic Other upper respiratory infections (6 sources) Sore throat symptom; Translations: [Acute pharyngitis, unspecified] Onset: 07-28-2024 Episodic Otitis media and related conditions (1 source) Dysfunction of eustachian tube; Translations: [Other specified disorders of Eustachian tube, bilateral] Episodic Ovarian cyst (1 source) Cyst of ovary; Translations: [Unspecified ovarian cyst, unspecified side] Episodic Residual codes; unclassified (1 source) Gestation period, 37 weeks; Translations: [37 weeks gestation of ] Episodic Urinary tract infections (4 sources) Acute urinary tract infection; Translations: [Urinary tract infection, site not specified] Onset: 07-28-2024 Episodic Viral infection (1 source) Viral disease; Translations: [Viral infection, unspecified] Episodic Past or Other Problems Problem Classification Problem Date Documented Da te Episodic/Chronic Abdominal pain (8 sources) Right lower quadrant pain; Translations: [Abdominal pain] Onset: 12-19-2023 Episodic Results Test Name Value Interpretation Reference Range Facil ity Bacteria Ur Culton 5 Bacteria identified Cx Nom (U) ORGANISM ID: 1 10,000 -<50,000 CFU/ml Mixed microbiota No further workup. Mixed microbiota can be due to???urine???contamina tion with skin bacteria at time of collection or presence of a long-term urinary catheter. If a new culture is needed, please consider re-education of the patient on proper midstream co llection technique or straight catheterization for???urine???collecti on. Normal [facility] Comment on above: Performed By: #### 6 30-4 #### [facility] CLIA [id number] [address] [place] [address] CNOVon 07-28-2024 CNOV Office Visit (UCWSTR ) BELLA CARLIN ([id number]) 1990 F Date Time Provider Department 07/28/24 8:45 AM JAKY TANG [facility] During your visit today, we recorded the following information about you: Temperature Pulse Respiration Blood pressure 98.1 degrees 84/minute 16/minute 102/64 Weight 48.4 kg Jaky Tang PA-C 07/28/2024 9:14 AM Signed This note was created using Tenebril. Subjective Bella Carlin is a 34 year old female. Patient is a 34-year-old female who complains of mild dysuria, urinary urgency and frequency that she has been experiencing for the past 3 days. Patient also reports mild throat irritation and nonproductive cough. Patient denies fever, chills, hematuria, flank pain, nausea or other symptoms. Patient does have a history of recurrent urinary tract infection and states that her current symptoms are consistent with same. Review of Systems HENT: Positive for sore throat. Respiratory: Positive for cough. Genitourinary: Positive for dysuria, frequency and urgency. All other systems reviewed and are negative. Objective BP 102/64 Pulse 84 Temp 36.7 ?C (98.1 ?F) Resp 16 Wt 48.4 kg (106 lb 11.2 oz) LMP 01/08/2024 (Exact Date) SpO2 97% BMI 18.61 kg/m? Physical Exam Vitals and nursing note reviewed. Constitutional: Appearance: Normal appearance. She is normal weight. HENT: Head: Normocephalic and atraumatic. Right Ear: Tympanic membrane, ear canal and external ear normal. Left Ear: Tympanic membrane, ear canal and external ear normal. Nose: Nose normal. Mouth/Throat: Mouth: Mucous membranes are moist. Pharynx: Oropharynx is clear. Eyes: Extraocular Movements: Extraocular movements intact. Conjunctiva/sclera: Conjunctivae normal. Pupils: Pupils are equal, round, and reactive to light. Cardiovascular: Rate and Rhythm: Normal rate and regular rhythm. Pulses: Normal pulses. Heart sounds: Normal heart sounds. Pulmonary: Effort: Pulmonary effort is normal. Breath sounds: Normal breath sounds. Musculoskeletal: Cervical back: Normal range of motion and neck supple. Skin: General: Skin is warm and dry. Capillary Refill: Capillary refill takes less than 2 seconds. Neurological: General: No focal deficit present. Mental Status: She is alert and oriented to person, place, and time. Psychiatric: Mood and Affect: Mood normal. Behavior: Behavior normal. Thought Content: Thought content normal. Judgment: Judgment normal. Assessment and Plan Physical exam findings as noted above. Urinalysis shows leukocyte esterase with moderate blood and urine culture was ordered. Patient was provided with prescriptions for Keflex 500 mg and Pyridium 100 mg. Patient states that she typically develops vaginal yeast infections with antibiotic use and she was provided with a prescription of Diflucan 150 mg. Patient was advised that results of the urine culture be available in 2 days and she will be contacted if there is a need to change her medication based on sensitivity report. Additional supportive care was discussed and the patient verbalizes clear understanding of same. CLINICAL IMPRESSION: Acute UTI; Acute URI ASSESSMENT/PLAN: 1. Urinary frequency - ICD9: 788.41, ICD10: R35.0 (primary diagnosis) - UA DIP, URINE (POC) - BACTERIAL CULTURE, URINE 2. Acute UTI - ICD9: 599.0, ICD10: N39.0 - BACTERIAL CULTURE, URINE - CEPHALEXIN 500 MG CAPSULE - PHENAZOPYRIDINE 100 MG TABLET - FLUCONAZOLE 150 MG TABLET 3. Acute URI - ICD9: 465.9, ICD10: J06.9 MDM Number of Diagnoses or Management Options Amount and/or Complexity of Data Reviewed Clinical lab tests: ordered and reviewed Risk of Complications, Morbidity, and/or Mortality Presenting problems: low Diagnostic procedures: low Management options: annamaria Tang PA-C Allergies As of Date: 07/28/2024 (No Known Allergies) Date Reviewed: 07/28/2024 Reviewed by: Maddy Golden MA - Fully Assessed Reason for Visit: Urinary Frequency [1086] Cmt: x 3 days, cough and sore throat x 2 days Primary Visit Diagnosis:Urinary frequency [R35.0] Other Visit Diagnoses:Acute UTI [N39.0] Acute URI [J06.9] Order(s):UA DIP, URINE (POC) [[id number]] Order #: [id number]. #:[id number] BACTERIAL CULTURE, URINE [SQURCUL] Order #: [id number]. #:[id number] cephALEXin (KEFLEX) 500 mg capsuleTake 1 capsule by mouth four times daily for 7 days.Disp: 28 capsuleRfl: 0 phenazopyridine (PYRIDIUM) 100 mg tabletTake 1 tablet by mouth three times a day as needed for up to 5 days.Disp: 15 tabletRfl: 0 fluconazole (DIFLUCAN) 150 mg tabletTake 1 tablet by mouth one time only for 1 dose. Repeat in 3 days as needed.Disp: 2 tabletRfl: 0 Prescriptions as of 07/28/2024 - cephALEXin (KEFLEX) 500 mg capsule Take 1 capsule by mouth four times daily for 7 days. - phenazopyridin (more content not included)... Normal [facility] UA DIP, URINE (POC)on 2024 BILIRUBIN UA (POCT) Small Abnormal Negative [facility] CLARITY UA (POCT) Clear [facility] COLOR UA (POCT) [facility] GLUCOSE UA (POCT) Negative Negative mg/dL [facility] Hemoglobin Ql (U) Moderate Abnormal Negative [facility] Interpretation and review of laboratory results Abnormal [facility] KETONE UA (POCT) Negative Negative mg/dL [facility] LEUKOCYTES UA (POCT) Small Abnormal Negative [facility] NITRITE UA (POCT) Negative Negative [facility] PH UA (POCT) 6 4.5 - 8.0 [facility] Protein Ql (U) 100 mg/dL Abnormal Negative [facility] SPECIFIC GRAVITY UA (POCT) >=1.030 1.005 - 1.030 [facility] UROBILINOGEN UA (POCT) 0.2 Normal E.U./dL [facility] Location:[address], [place], [place], [id number] [place] [address] POINT OF CARE [facility] 01-17-2024 [facility] BELLA CARLIN ([id number]) 1990 F Date Time Provider Department 01/17/24 JOSE J COFFMAN [facility] During your visit today, we recorded the following information about you: Candace Paula LPN 01/17/2024 12:34 PM Signed Pt calling to report she picked up the Flagyl on Saturday and started it. Started with side effect in the middle of the night. Started with Stomach pain and took the 2nd dose Saturday with food and started vomiting and she can not eat . Continued to take medication thru am. When she tries to eat she gets nauseated. Pt asking if there is something something different she can take and Zofran for nausea. Pt does not have a pcp. Please advise pt. LOULOU Kenney Jessica, APRN.[employer] 01/17/2024 12:36 PM Signed Have called in vaginal suppositories, Flagyl. Quit taking oral Flagyl. Follow up with PCP for continued concerns. Please advise. Michelle Mendez MA 01/17/2024 12:52 PM Signed Patient notified of results, verbalizes understanding of instructions. Michelle Mendez MA Allergies As of Date: 01/17/2024 (No Known Allergies) Date Reviewed: 01/11/2024 Reviewed by: Liset Colmenares LPN - Fully Assessed Reason for Visit: requesting different medication [Other] Order(s):metroNIDAZOLE (METROGEL) 0.75 % (37.5mg/5 gram) Vaginal GelUse 1 Applicatorful vaginally daily at bedtime for 5 days.Disp: 70 gRfl: 0 Prescriptions as of 01/17/2024 - metroNIDAZOLE (METROGEL) 0.75 % (37.5mg/5 gram) Vaginal Gel Use 1 Applicatorful vaginally daily at bedtime for 5 days. - cephALEXin (KEFLEX) 500 mg capsule Take 1 capsule by mouth two times a day for 7 days. - lurasidone (LATUDA) 20 mg tablet Take 20 mg by mouth once daily. - hydrOXYzine HCl (ATARAX) 25 mg tablet take 1 tablet by mouth at bedtime and 1 tablet by mouth once kyle... (REFER TO PRESCRIPTION NOTES). - escitalopram oxalate (LEXAPRO) 10 mg tablet Take 1 tablet by mouth every afternoon. - fluticasone (FLONASE) 50 mcg/actuation nasal spray Use 2 Sprays in each nostril once daily. Rinse mouth after use. Problem List As Of Date 01/17/2024 Noted Resolved Abdominal pain [R10.9] 12/20/2023 Prescriptions ordered this encounter Disp Refills Start End METRONIDAZOLE 0.75 % (37.5 MG/5 GRAM* 70 g 0 01/17/2024 01/22/2024 Route: VAGINAL Sig: Use 1 Applicatorful vaginally daily at bedtime for 5 days. Medications Discontinued During This Encounter Prescriptions - metroNIDAZOLE (FLAGYL) 500 mg tablet (Discontinued) Take 1 tablet by mouth two times a day for 7 days. Encounter Status:Closed by MICHELLE MENDEZ on 01/17/24 Normal [facility] 01-12-2024 [facility] Tele[facility] ([facility]) BELLA CARLIN ([id number]) 1990 F Date Time Provider Department 01/12/24 JOSE J COFFMAN [facility] During your visit today, we recorded the following information about you: Jose J Coffman PA 01/12/2024 1:46 PM Signed Please let patient know urine culture did not reveal a UTI. She may stop the Keflex. Continue the Flagyl as prescribed for BV Michelle Mendez MA 01/12/2024 3:40 PM Signed Patient active MyChart. Patient notified via [employer] message. Michelle Mendez MA Allergies As of Date: 01/12/2024 (No Known Allergies) Date Reviewed: 01/11/2024 Reviewed by: Liset Colmenares LPN - Fully Assessed Reason for Visit: Results [95] Prescriptions as of 01/12/2024 - metroNIDAZOLE (FLAGYL) 500 mg tablet Take 1 tablet by mouth two times a day for 7 days. - cephALEXin (KEFLEX) 500 mg capsule Take 1 capsule by mouth two times a day for 7 days. - lurasidone (LATUDA) 20 mg tablet Take 20 mg by mouth once daily. - hydrOXYzine HCl (ATARAX) 25 mg tablet take 1 tablet by mouth at bedtime and 1 tablet by mouth once kyle... (REFER TO PRESCRIPTION NOTES). - escitalopram oxalate (LEXAPRO) 10 mg tablet Take 1 tablet by mouth every afternoon. - fluticasone (FLONASE) 50 mcg/actuation nasal spray Use 2 Sprays in each nostril once daily. Rinse mouth after use. Problem List As Of Date 01/12/2024 Noted Resolved Abdominal pain [R10.9] 12/20/2023 Encounter Status:Closed by MICHELLE MENDEZ on 01/12/24 Normal [facility] BACTERIAL VAGINOSIS NAATon 1 Lactobacillus crispatus+gasseri+je nsenii + Gardnerella vaginalis + Atopobium vaginae rRNA MARCIAL+probe Ql (Vag fld) Positive Abnormal Negative for bacterial vaginosis [facility] Comment on above: Order Comment: Speci men Type: SWAB Ordering Facility: [facility] Address: [address] [place] [address] Performed By: #### 3 6902-5, BVAMP #### [facility] CLIA [id number] [address] [place] [address] [place] Bacteria Ur Culton Bacteria identified Cx Nom (U) CULTURE, URINE: No growth (<1,000 CFU/ml) Normal [facility] Comment on above: Performed By: #### 6 30-4 #### [facility] CLIA [id number] [address] [place] [address] [place] C. trachomatis+N. gonorrhoea e DNA MARCIAL+probe Ql (Unsp spec)on 01-11-2024 C. trachomatis rRNA MARCIAL+probe Ql (Unsp spec) Negative Normal Negative for Chlamydia trachomatis by amplificaton [facility] Comment on above: Order Comment: Speci men Type: SWAB Ordering Facility: [facility] Address: [address] [place] [address] Performed By: #### 3 6902-5, BVAMP #### [facility] CLIA [id number] [address] [place] [address] [place] N. gonorrhoeae rRNA MARCIAL+probe Ql (Unsp spec) Negative Normal Negative for Neisseria gonorrhoeae by amplification [facility] Comment on above: Order Comment: Speci men Type: SWAB Ordering Facility: [facility] Address: [address] [place] [address] Performed By: #### 3 6902-5, BVAMP #### [facility] CLIA [id number] [address] [place] [address] [place] [place] BRIAN/TRICHOMONAS NAATon 1 C. glabrata RNA MARCIAL+probe Ql (Vag fld) Negative Normal Negative for Brian glabrata [facility] Comment on above: Order Comment: Speci men Type: SWAB Ordering Facility: [facility] Address: [address] [place] [address] Performed By: #### C VTV #### [facility] CLIA [id number] [address] [place] [address] [place] Brian sp DNA MARCIAL+probe Ql (Vag fld) Negative Normal Negative for Brian species [facility] Comment on above: Order Comment: Speci men Type: SWAB Ordering Facility: [facility] Address: [address] [place] [address] Performed By: #### C VTV #### [facility] CLIA [id number] [address] [place] [address] OF [place] T. vaginalis DNA MARCIAL+probe Ql (Unsp spec) Negative Normal Negative for Trichomonas vaginalis by amplification [facility] Comment on above: Order Comment: Speci men Type: SWAB Ordering Facility: [facility] Address: [address] [place] [address] Performed By: #### C VTV #### [facility] CLIA [id number] [address] [place] [address] [place] CNOVon 01-11-2024 CNOV Office Visit (UCTR ) BELLA CARLIN ([id number]) 1990 F Date Time Provider Department 01/11/24 2:15 PM IBRAHIMA COSTELLO [facility] During your visit today, we recorded the following information about you: Temperature Pulse Respiration Blood pressure 98.3 degrees 85/minute 20/minute 99/62 Weight Last Period 50.8 kg 01/08/24 Ibrahima Costello PA-C 01/11/2024 2:38 PM Signed This note was created using Tenebril. Subjective Bella Carlin is a 33 year old female. HPI Patient presents with a chief complaint of dysuria and frequency over the past day. Denies blood in urine. No back pain or abdominal pain. She has had UTIs before and this feels similar. No vaginal itching or discharge. She states last menstrual cycle was about a week ago. She is sexually active with 1 partner, not having any STD symptoms but would like screened while she is here. No fever. No vomiting. No rash. Review of Systems Constitutional: Negative. HENT: Negative. Eyes: Negative. Respiratory: Negative. Cardiovascular: Negative. Gastrointestinal: Negative. Genitourinary: Positive for dysuria, frequency and urgency. Negative for hematuria, pelvic pain, vaginal bleeding, vaginal discharge and vaginal pain. Musculoskeletal: Negative. All other systems reviewed and are negative. PAST MEDICAL HISTORY Diagnosis Date Adjustment disorder with depressed mood Current Outpatient Medications Medication Sig Dispense Refill lurasidone (LATUDA) 20 mg tablet Take 20 mg by mouth once daily. hydrOXYzine HCl (ATARAX) 25 mg tablet take 1 tablet by mouth at bedtime and 1 tablet by mouth once kyle... (REFER TO PRESCRIPTION NOTES). escitalopram oxalate (LEXAPRO) 10 mg tablet Take 1 tablet by mouth every afternoon. fluticasone (FLONASE) 50 mcg/actuation nasal spray Use 2 Sprays in each nostril once daily. Rinse mouth after use. 1 Each 0 cephALEXin (KEFLEX) 500 mg capsule Take 1 capsule by mouth two times a day for 7 days. 14 capsule 0 No current facility-administered medications for this visit. PAST SURGICAL HISTORY Procedure Laterality Date TYMPANOSTOMY LOCAL/TOPICAL ANESTHESIA FAMILY HISTORY Problem Relation Age of Onset Cancer Maternal Grandmother lung Social History Tobacco Use Smoking status: Every Day Current packs/day: 0.50 Types: Cigarettes Smokeless tobacco: Never Tobacco comments: smokes 3-4 ciggs Substance Use Topics Alcohol use: No Drug use: No Objective BP 99/62 Pulse 85 Temp 36.8 ?C (98.3 ?F) Resp 20 Wt 50.8 kg (111 lb 15.9 oz) LMP 01/08/2024 (Exact Date) SpO2 99% BMI 19.53 kg/m? Physical Exam Constitutional: Appearance: Normal appearance. HENT: Head: Normocephalic and atraumatic. Cardiovascular: Rate and Rhythm: Regular rhythm. Heart sounds: Normal heart sounds. Pulmonary: Effort: Pulmonary effort is normal. Breath sounds: Normal breath sounds. Abdominal: General: Abdomen is flat. Bowel sounds are normal. Palpations: Abdomen is soft. Comments: Mild suprapubic ttp. No guarding or rebound. Skin: General: Skin is warm and dry. Neurological: Mental Status: She is alert. Assessment and Plan ASSESSMENT/PLAN: 1. Acute UTI - ICD9: 599.0, ICD10: N39.0 (primary diagnosis) acute - UA positive for ben esterase and hematuria - Send urine for culture - Begin treatment with keflex for 7 days - UA DIP, URINE (POC) - URINE CULTURE 2. Screening for STD (sexually transmitted disease) - ICD9: V74.5, ICD10: Z11.3 - BACTERIAL VAGINOSIS NAAT - BRIAN/TRICHOMONAS NAAT - GONORRHEA/CHLAMYDIA NAAT JOSE CARLOS Wong-C Allergies As of Date: 01/11/2024 (No Known Allergies) Date Reviewed: 01/11/2024 Reviewed by: Liset Colmenares LPN - Fully Assessed Primary Visit Diagnosis:Acute UTI [N39.0] Other Visit Diagnosis:Screening for STD (sexually transmitted disease) [Z11.3] Order(s):UA DIP, URINE (POC) [[id number]] Order #: [id number]. #:[id number] URINE CULTURE [SQURCUL] Order #: [id number]. #:[id number] cephALEXin (KEFLEX) 500 mg capsuleTake 1 capsule by mouth two times a day for 7 days.Disp: 14 capsuleRfl: 0 BACTERIAL VAGINOSIS NAAT [SQBVAMP] Order #: [id number]. #:[id number] BRIAN/TRICHOMONAS NAAT [SQCVTV] Order #: [id number]. #:[id number] GONORRHEA/CHLAMYDIA NAAT [SQGCCT] Order #: [id number]. #:[id number] Prescriptions as of 01/11/2024 - cephALEXin (KEFLEX) 500 mg capsule Take 1 capsule by mouth two times a day for 7 days. - lurasidone (LATUDA) 20 mg tablet Take 20 mg by mouth once daily. - hydrOXYzine HCl (ATARAX) 25 mg tablet take 1 tablet by mouth at bedtime and 1 tablet by mouth once kyle... (REFER TO PRESCRIPTION NOTES). - escitalopram oxalate (LEXAPRO) 10 mg tablet Take 1 tablet by mouth every afternoon. - fluticasone (FLONASE) 50 mcg/actuation nasal spray Use 2 Sprays in each nos (more content not included)... Normal [facility] UA DIP, URINE (POC)on 2023 BILIRUBIN UA (POCT) Negative Negative [facility] CLARITY UA (POCT) Clear [facility] COLOR UA (POCT) [facility] GLUCOSE UA (POCT) Negative Negative mg/dL [facility] Hemoglobin Ql (U) Trace-intact Abnormal Negative [facility] Interpretation and review of laboratory results Abnormal [facility] KETONE UA (POCT) Trace Negative mg/dL [facility] LEUKOCYTES UA (POCT) Small Abnormal Negative [facility] NITRITE UA (POCT) Negative Negative [facility] PH UA (POCT) 6.5 4.5 - 8.0 [facility] Protein Ql (U) Trace Abnormal Negative mg/dL [facility] SPECIFIC GRAVITY UA (POCT) 1.025 1.005 - 1.030 [facility] UROBILINOGEN UA (POCT) 0.2 Normal E.U./dL [facility] Location:[facility], [address] [place] [address], [place], [place], [id number] [place] [address] POINT OF CARE [facility] Basic metabolic 2000 panelon 12-21-2023 Anion gap [Moles/Vol] 6 mmol/L Low 8-15 [facility] Comment on above: Order Comment: Speci men Type: BLOOD SPECIMEN Ordering Facility: [facility] Address: [address] [place] [address] Performed By: #### 2 4321-2 #### [facility] CLIA [id number] [address] [place] [address] [place] Calcium [Mass/Vol] 7.9 mg/dL Low 8.5-10.2 [facility] Comment on above: Order Comment: Speci men Type: BLOOD SPECIMEN Ordering Facility: [facility] Address: [address] [place] [address] Performed By: #### 2 4321-2 #### [facility] CLIA [id number] [address] [place] [address] [place] Chloride [Moles/Vol] 109 mmol/L High 98-107 [facility] Comment on above: Order Comment: Speci men Type: BLOOD SPECIMEN Ordering Facility: [facility] Address: [address] [place] [address] Performed By: #### 2 4321-2 #### [facility] CLIA [id number] [address] [place] [address] [place] CO2 [Moles/Vol] 24 mmol/L Normal 22-30 [facility] Comment on above: Order Comment: Speci men Type: BLOOD SPECIMEN Ordering Facility: [facility] Address: [address] [place] [address] Performed By: #### 2 4321-2 #### [facility] CLIA [id number] [address] Creatinine [Mass/Vol] 0.61 mg/dL Normal 0.58-0.96 [facility] Comment on above: Order Comment: Speci men Type: BLOOD SPECIMEN Ordering Facility: [facility] Address: [address] [place] [address] Performed By: #### 2 4321-2 #### [facility] CLIA [id number] [address] Creatinine and Glomerular filtration rate.predicted panel (S/P/Bld) 120 mL/min/1.73m??? Normal >=60 [facility] Comment on above: Order Comment: Speci men Type: BLOOD SPECIMEN Ordering Facility: [facility] Address: [address] [place] [address] Result Comment: Julissa mated Glomerular Filtration Rate (eGFR) is calculated using the 2020 CKD-EPI creatinine equation. This equation utilizes serum creatinine, sex, and age as parameters. The creatinine assay has traceable calibration to isotope dilution-mass spectrometry. Refer to KDIGO guidelines for clinical interpretation. In patients with unstable renal function, e.g. those with acute kidney injury, the eGFR may not accurately reflect actual GFR. Performed By: #### 2 4321-2 #### [facility] CLIA [id number] [address] [place] [address] [place] Glucose [Mass/Vol] 82 mg/dL Normal 74-99 [facility] Comment on above: Order Comment: Anamaria dumont Type: BLOOD SPECIMEN Ordering Facility: [facility] Address: [address] [place] [id number] Result Comment: The [place] [employer] Association (ADA) provides guidance for cutoff values for fasting glucose and random glucose. The ADA defines fasting as no caloric intake for at least 8 hours. Fasting plasma glucose results between 100 to 125 mg/dL indicate increased risk for diabetes (prediabetes). Fasting plasma glucose results greater than or equal to 126 mg/dL meet the criteria for diagnosis of diabetes. In the absence of unequivocal hyperglycemia, results should be confirmed by repeat testing. In a patient with classic symptoms of hyperglycemia or hyperglycemic crisis, random plasma glucose results greater than or equal to 200 mg/dL meet the criteria for diagnosis of diabetes. Reference: Standards of Medical Care in Diabetes 2016, [place] [employer] Association. Diabetes Care. 2016.39(Suppl 1). Performed By: #### 2 4321-2 #### [facility] CLIA [id number] [address] [place] [address] [place] Potassium [Moles/Vol] 3.9 mmol/L Normal 3.7-5.1 [facility] Comment on above: Order Comment: Anamaria dumont Type: BLOOD SPECIMEN Ordering Facility: [facility] Address: [address] [place] [address] Performed By: #### 2 4321-2 #### [facility] CLIA [id number] [address] [place] [id number] [place] Sodium [Moles/Vol] 139 mmol/L Normal 136-144 [facility] Comment on above: Order Comment: Anamaria dumont Type: BLOOD SPECIMEN Ordering Facility: [facility] Address: [address] [place] [address] Performed By: #### 2 4321-2 #### [facility] CLIA [id number] [address] STATES [facility] Urea nitrogen [Mass/Vol] 6 mg/dL Low 10-05 [facility] Comment on above: Order Comment: Speci men Type: BLOOD SPECIMEN Ordering Facility: [facility] Address: [address] [place] [address] Performed By: #### 2 4321-2 #### [facility] CLIA [id number] [address] [place] CBC W Auto Differential pane l (Bld)on 12-21-2023 Basophils (Bld) [#/Vol] 0.06 10*3/uL Normal <0.11 [facility] Comment on above: Order Comment: Speci men Type: BLOOD SPECIMENOrdering Facility: [facility] Address: [address] [place] [address] Performed By: #### 5 7021-8 ####[facility] [id number] [address] [place] Basophils/100 WBC (Bld) 0.9 % Normal [facility] Comment on above: Order Comment: Speci men Type: BLOOD SPECIMENOrdering Facility: [facility] Address: [address] [place] [address] Performed By: #### 5 7021-8 ####[facility] [id number] [address] Differential cell count method Nom (Bld) Auto Normal [facility] Comment on above: Order Comment: Speci men Type: BLOOD SPECIMENOrdering Facility: [facility] Address: [address] [place] [address] Performed By: #### 5 7021-8 ####[facility] [id number] [place] [address] [place] Eosinophils (Bld) [#/Vol] 0.13 10*3/uL Normal <0.46 [facility] Comment on above: Order Comment: Speci men Type: BLOOD SPECIMENOrdering Facility: [facility] Address: [address] [place] [address] Performed By: #### 5 7021-8 ####[facility] [id number] [place] [address] [place] Eosinophils/100 WBC (Bld) 1.8 % Normal [facility] Comment on above: Order Comment: Speci men Type: BLOOD SPECIMENOrdering Facility: [facility] Address: [address] [place] [address] Performed By: #### 5 7021-8 ####[facility] [id number] [place] [address] [place] Erythrocyte distribution width (RBC) [Ratio] 13.2 % Normal 11.5-15.0 [facility] Comment on above: Order Comment: Speci men Type: BLOOD SPECIMENOrdering Facility: [facility] Address: [address] [place] [address] Performed By: #### 5 7021-8 ####[facility] [id number] [place] [address] [place] Hematocrit (Bld) [Volume fraction] 33.5 % Low 36.0-46.0 [facility] Comment on above: Order Comment: Speci men Type: BLOOD SPECIMENOrdering Facility: [facility] Address: [address] [place] [address] Performed By: #### 5 7021-8 ####[facility] [id number] [place] [address] [place] Hemoglobin (Bld) [Mass/Vol] 10.5 g/dL Low 11.5-15.5 [facility] Comment on above: Order Comment: Speci men Type: BLOOD SPECIMENOrdering Facility: [facility] Address: [address] [place] [address] Performed By: #### 5 7021-8 ####[facility] [id number] [place] [address] [place] Immature granulocytes (Bld) [#/Vol] 10*3/uL Normal <0.10 [facility] Comment on above: Order Comment: Speci men Type: BLOOD SPECIMENOrdering Facility: [facility] Address: [address] [place] [address] Performed By: #### 5 7021-8 ####[facility] [id number] [address] Immature granulocytes/100 WBC (Bld) 0.3 % Normal [facility] Comment on above: Order Comment: Speci men Type: BLOOD SPECIMENOrdering Facility: [facility] Address: [address] [place] [address] Performed By: #### 5 7021-8 ####[facility] [id number] [address] [place] Lymphocytes (Bld) [#/Vol] 2.46 10*3/uL Normal 1.00-4.00 [facility] Comment on above: Order Comment: Speci men Type: BLOOD SPECIMENOrdering Facility: [facility] Address: [address] [place] [address] Performed By: #### 5 7021-8 ####[facility] [id number] [address] Lymphocytes/100 WBC (Bld) 35.0 % Normal [facility] Comment on above: Order Comment: Speci men Type: BLOOD SPECIMENOrdering Facility: [facility] Address: [address] [place] [address] Performed By: #### 5 7021-8 ####[facility] [id number] [address] [place] MCH (RBC) [Entitic mass] 30.2 pg Normal 26.0-34.0 [facility] Comment on above: Order Comment: Speci men Type: BLOOD SPECIMENOrdering Facility: [facility] Address: [address] [place] [address] Performed By: #### 5 7021-8 ####[facility] [id number] [address] MCHC (RBC) [Mass/Vol] 31.3 g/dL Normal 30.5-36.0 [facility] Comment on above: Order Comment: Speci men Type: BLOOD SPECIMENOrdering Facility: [facility] Address: [address] [place] [address] Performed By: #### 5 7021-8 ####[facility] [id number] [place] [address] [place] MCV (RBC) [Entitic vol] 96.3 fL Normal 80.0-100.0 [facility] Comment on above: Order Comment: Speci men Type: BLOOD SPECIMENOrdering Facility: [facility] Address: [address] [place] [address] Performed By: #### 5 7021-8 ####[facility] [id number] [place] [address] [place] Monocytes (Bld) [#/Vol] 0.68 10*3/uL Normal <0.87 [facility] Comment on above: Order Comment: Speci men Type: BLOOD SPECIMENOrdering Facility: [facility] Address: [address] [place] [address] Performed By: #### 5 7021-8 ####[facility] [id number] [place] [address] [place] Monocytes/100 WBC (Bld) 9.7 % Normal [facility] Comment on above: Order Comment: Speci men Type: BLOOD SPECIMENOrdering Facility: [facility] Address: [address] [place] [address] Performed By: #### 5 7021-8 ####[facility] [id number] [place] [address] [place] Neutrophils (Bld) [#/Vol] 3.68 10*3/uL Normal 1.45-7.50 [facility] Comment on above: Order Comment: Speci men Type: BLOOD SPECIMENOrdering Facility: [facility] Address: [address] [place] [address] Performed By: #### 5 7021-8 ####[facility] [id number] [place] [address] [place] Neutrophils/100 WBC (Bld) 52.3 % Normal [facility] Comment on above: Order Comment: Speci men Type: BLOOD SPECIMENOrdering Facility: [facility] Address: [address] [place] [address] Performed By: #### 5 7021-8 ####[facility] [id number] [address] [place] Nucleated RBC (Bld) [#/Vol] 10*3/uL Normal <0.01 [facility] Comment on above: Order Comment: Speci men Type: BLOOD SPECIMENOrdering Facility: [facility] Address: [address] [place] [address] Performed By: #### 5 7021-8 ####[facility] [id number] [address] [place] Nucleated RBC/100 WBC (Bld) [Ratio] 0.0 /[address] [facility] Comment on above: Order Comment: Speci men Type: BLOOD SPECIMENOrdering Facility: [facility] Address: [address] [place] [address] Performed By: #### 5 7021-8 ####[facility] [id number] [place] [address] [place] Platelet mean volume (Bld) [Entitic vol] 10.9 fL Normal 9.0-12.7 [facility] Comment on above: Order Comment: Speci men Type: BLOOD SPECIMENOrdering Facility: [facility] Address: [address] [place] [address] Performed By: #### 5 7021-8 ####[facility] [id number] [place] [address] [place] [facility] [place] Platelets (Bld) [#/Vol] 230 10*3/uL Normal 150-400 [facility] Comment on above: Order Comment: Speci men Type: BLOOD SPECIMENOrdering Facility: [facility] Address: [address] [place] [address] Performed By: #### 5 7021-8 ####[facility] [id number] [place] [address] [place] RBC (Bld) [#/Vol] 3.48 10*6/uL Low 3.90-5.20 [facility] Comment on above: Order Comment: Specyoselyn dumont Type: BLOOD SPECIMENOrdering Facility: [facility] Address: [address] [place] [address] Performed By: #### 5 7021-8 ####[facility] [id number] [address] WBC (Bld) [#/Vol] 7.03 10*3/uL Normal 3.70-11.00 [facility] Comment on above: Order Comment: Speci men Type: BLOOD SPECIMENOrdering Facility: [facility] Address: [address] [place] [address] Performed By: #### 5 7021-8 ####[facility] [id number] [address] NURSING PROGon 12-21-2023 NURSING PROG HNO ID: [id number] Author: JOSE EDUARDO MCKEON RN Service: Nursing Author Type: Registered Nurse Type: Nursing Progress Note Filed: 12/21/2023 09:19 Note Text: 0800: patient requesting to go home, educated patient on trying clear liquids to make sure N/V and abd pain doesn't return before being discharged, patient addiment about wanting to go home. Page out to Dr. Malone. 0830: discussed with patient that Dr. Malone states she will work on her D/C orders soon and that this RN would be in within the next hour or two with her paper work. Patients requesting IV to be removed, removed IV at this time. 0900: patient not present in room, gown on the bed, appears to have left without a written discharge order. Notified [facility] ([place]) and Dr. Malone. Normal [facility] PT panel Coag (PPP)on 2023 INR Coag (PPP) [Relative time] 1.1 {INR} Normal 0.9-1.3 [facility] Comment on above: Order Comment: Speci tim Type: BLOOD SPECIMENOrdering Facility: [facility] Address: [address] [place] [address] Result Comment: Vivian min K Antagonist (VKA) Therapeutic Range: INR 2 to 3 (Target INR of 2.5) Note: For patients treated with VKA drugs, such as warfarin, the [place] [employer] 2012 Guideline recommends a therapeutic INR range of 2 to 3 (target INR of 2.5). This recommendation includes high-risk patients with antiphospholipid syndrome with previous arterial or venous thromboembolism, current-generation mechanical or bioprosthetic aortic heart valve replacement. Note: Patients with mechanical aortic valve replacement and additional risk factors for thromboembolic events (atrial fibrillation, previous thromboembolism, LV dysfunction, hypercoagulable conditions) or an older generation mechanical AVR (i.e., ball in-Cage) or any mechanical MVR should have a INR therapeutic range of 2.5 to 3.5 (target INR of 3). Jeet GH, et al. Chest 2012, 141:7S-47S Yulissa RA, et al. [facility] 2017, 70: 252-289 Performed By: #### 3 4528-0 ####[facility] [id number] [place] [address] [place] PT Coag (PPP) [Time] 11.4 s Normal 9.7-13.0 [facility] Comment on above: Order Comment: Speci men Type: BLOOD SPECIMENOrdering Facility: [facility] Address: [address] [place] [address] Performed By: #### 3 4528-0 ####[facility] [id number] [address] [place] TYPE + SCREENon 12-21-[address] [facility] Comment on above: Order Comment: Speci men Type: BLOOD SPECIMENOrdering Facility: [facility] Address: [address] [place] [address] Performed By: #### T SCR ####[facility] [id number] [address] [place] Rh Nom (Bld) Positive Normal [facility] Comment on above: Order Comment: Speci men Type: BLOOD SPECIMENOrdering Facility: [facility] Address: [address] [place] [address] Performed By: #### T SCR ####[facility] [id number] [place] [id number] [facility] TYPE AND SCREEN EXPIRATION 12/24/2023 23:[address] [facility] Comment on above: Order Comment: Speci men Type: BLOOD SPECIMENOrdering Facility: [facility] Address: [address] [place] [address] Performed By: #### T SCR ####[facility] [id number] [place] [address] [facility] ALLIED HEALTHon 12-20-2023 ALLIED HEALTH HNO ID: [id number] Author: ARIS RICO RT(R) Service: Radiology Author Type: Technologist Type: Allied Health Filed: 12/20/2023 19:57 Note Text: Radiology Service Progress Note DATE OF SERVICE: December 20, 2023 TIME: 7:46 PM PATIENT IDENTITY VERIFICATION COMPLETED USING TWO (2) STANDARD IDENTIFIERS: Name and Date of confirmed by patient verbally and Name and Date of confirmed by identification band. FALL SCREENING: Has the patient had 2 falls in the last year or 1 fall with injury or currently using an Ambulatory Assistive Device (Walker, Cane, Wheelchair, Crutches, etc.)? Emergency Room Patient: Screened in ED PATIENT GENDER DATA: Female. status: : No status: NO. PATIENT RELEVANT IMPLANT DATA REVIEWED: Not Applicable PATIENT PRESENTS WITH AN IMPLANTABLE OR ATTACHED TOE PUNCHER: No ALLERGIES: Reviewed and unchanged CONTRAST ALLERGY: NO. EXAM: CT -CONTRAST INDUCED NEPHROPATHY RISK FACTORS: Not applicable CREATININE: Creatinine Date Value Ref Range Status 12/20/2023 0.62 0.58 - 0.96 mg/dL Final 06/30/2014 0.48 (L) 0.51 - 0.95 mg/dL Final 06/29/2014 0.54 0.51 - 0.95 mg/dL Final Estimated Glomerular Filtration Rate Date Value Ref Range Status 12/20/2023 119 >=60 mL/min/1.73m? Final Comment: Estimated Glomerular Filtration Rate (eGFR) is calculated using the 2020 CKD-EPI creatinine equation. This equation utilizes serum creatinine, sex, and age as parameters. The creatinine assay has traceable calibration to isotope dilution-mass spectrometry. Refer to KDIGO guidelines for clinical interpretation. In patients with unstable renal function, e.g. those with acute kidney injury, the eGFR may not accurately reflect actual GFR. P.O.C.T. RESULTS: POC done: Yes, See Lab Tab December 20, 2023 TREATMENT: N/A PERIPHERAL IV DATA: Inpatient - refer to [facility] documentation RADIOLOGY DEPARTMENT: CT; Exam(s) Completed: Abdomen/Pelvis SIGNATURE: Aris Rico, RT(R) PATIENT NAME: Bella Carlin DATE: December 20, 2023 TIME: 7:[address] [facility] BETA HCG, QUANTITATIVE FOR Juan M Don 12-20-2023 HCG.beta subunit Qn m[IU]/mL Normal <5.0 [facility] Comment on above: Order Comment: Speci men Type: BLOOD SPECIMENOrdering Facility: [facility] Address: [address] [place] [address] Result Comment: Tea adams Performed By: #### H CGED, 38103-3, 41286-2 ####FIELDS LABORATORYCLIA [id number] [place] [address] [place] CBC W Auto Differential pane l (Bld)on 12-20-2023 Basophils (Bld) [#/Vol] 0.06 10*3/uL Normal <0.11 [facility] Comment on above: Order Comment: Speci men Type: BLOOD SPECIMENOrdering Facility: [facility] Address: [address] [place] [address] Performed By: #### 5 7021-8 ####FIELDS LABORATORYCLIA [id number] [address] [place] Basophils/100 WBC (Bld) 0.6 % Normal [facility] Comment on above: Order Comment: Speci men Type: BLOOD SPECIMENOrdering Facility: [facility] Address: [address] [place] [address] Performed By: #### 5 7021-8 ####FIELDS LABORATORYCLIA [id number] [address] Differential cell count method Nom (Bld) Auto Normal [facility] Comment on above: Order Comment: Speci men Type: BLOOD SPECIMENOrdering Facility: [facility] Address: [address] [place] [address] Performed By: #### 5 7021-8 ####FIELDS LABORATORYCLIA [id number] [place] [address] [place] Eosinophils (Bld) [#/Vol] 0.14 10*3/uL Normal <0.46 [facility] Comment on above: Order Comment: Speci men Type: BLOOD SPECIMENOrdering Facility: [facility] Address: [address] [place] [address] Performed By: #### 5 7021-8 ####FIELDS LABORATORYCLIA [id number] [address] [place] Eosinophils/100 WBC (Bld) 1.3 % Normal [facility] Comment on above: Order Comment: Speci men Type: BLOOD SPECIMENOrdering Facility: [facility] Address: [address] [place] [address] Performed By: #### 5 7021-8 ####FIELDS LABORATORYCLIA [id number] [address] [place] Erythrocyte distribution width (RBC) [Ratio] 13.2 % Normal 11.5-15.0 [facility] Comment on above: Order Comment: Speci men Type: BLOOD SPECIMENOrdering Facility: [facility] Address: [address] [place] [address] Performed By: #### 5 7021-8 ####FIELDS LABORATORYCLIA [id number] [address] [place] Hematocrit (Bld) [Volume fraction] 39.9 % Normal 36.0-46.0 [facility] Comment on above: Order Comment: Speci men Type: BLOOD SPECIMENOrdering Facility: [facility] Address: [address] [place] [address] Performed By: #### 5 7021-8 ####FIELDS LABORATORYCLIA [id number] [address] [place] Hemoglobin (Bld) [Mass/Vol] 13.0 g/dL Normal 11.5-15.5 [facility] Comment on above: Order Comment: Speci men Type: BLOOD SPECIMENOrdering Facility: [facility] Address: [address] [place] [address] Performed By: #### 5 7021-8 ####FIELDS LABORATORYCLIA [id number] [address] [place] Immature granulocytes (Bld) [#/Vol] 0.03 10*3/uL Normal <0.10 [facility] Comment on above: Order Comment: Speci men Type: BLOOD SPECIMENOrdering Facility: [facility] Address: [address] [place] [address] Performed By: #### 5 7021-8 ####FIELDS LABORATORYCLIA [id number] [address] Immature granulocytes/100 WBC (Bld) 0.3 % Normal [facility] Comment on above: Order Comment: Speci men Type: BLOOD SPECIMENOrdering Facility: [facility] Address: [address] [place] [address] Performed By: #### 5 7021-8 ####FIELDS LABORATORYCLIA [id number] [address] [place] Lymphocytes (Bld) [#/Vol] 3.14 10*3/uL Normal 1.00-4.00 [facility] Comment on above: Order Comment: Speci men Type: BLOOD SPECIMENOrdering Facility: [facility] Address: [address] [place] [address] Performed By: #### 5 7021-8 ####FIELDS LABORATORYCLIA [id number] [address] Lymphocytes/100 WBC (Bld) 29.5 % Normal [facility] Comment on above: Order Comment: Speci men Type: BLOOD SPECIMENOrdering Facility: [facility] Address: [address] [place] [address] Performed By: #### 5 7021-8 ####FIELDS LABORATORYCLIA [id number] [place] [address] [place] MCH (RBC) [Entitic mass] 30.7 pg Normal 26.0-34.0 [facility] Comment on above: Order Comment: Speci men Type: BLOOD SPECIMENOrdering Facility: [facility] Address: [address] [place] [address] Performed By: #### 5 7021-8 ####FIELDS LABORATORYCLIA [id number] [place] [id number] [place] MCHC (RBC) [Mass/Vol] 32.6 g/dL Normal 30.5-36.0 [facility] Comment on above: Order Comment: Speci men Type: BLOOD SPECIMENOrdering Facility: [facility] Address: [address] [place] [address] Performed By: #### 5 7021-8 ####FIELDS LABORATORYCLIA [id number] [place] [address] [place] MCV (RBC) [Entitic vol] 94.3 fL Normal 80.0-100.0 [facility] Comment on above: Order Comment: Speci men Type: BLOOD SPECIMENOrdering Facility: [facility] Address: [address] [place] [address] Performed By: #### 5 7021-8 ####FIELDS LABORATORYCLIA [id number] [place] [address] [place] Monocytes (Bld) [#/Vol] 0.73 10*3/uL Normal <0.87 [facility] Comment on above: Order Comment: Speci men Type: BLOOD SPECIMENOrdering Facility: [facility] Address: [address] [place] [address] Performed By: #### 5 7021-8 ####FIELDS LABORATORYCLIA [id number] [address] Monocytes/100 WBC (Bld) 6.8 % Normal [facility] Comment on above: Order Comment: Speci men Type: BLOOD SPECIMENOrdering Facility: [facility] Address: [address] [place] [address] Performed By: #### 5 7021-8 ####FIELDS LABORATORYCLIA [id number] [place] [address] [place] Neutrophils (Bld) [#/Vol] 6.56 10*3/uL Normal 1.45-7.50 [facility] Comment on above: Order Comment: Speci men Type: BLOOD SPECIMENOrdering Facility: [facility] Address: [address] [place] [address] Performed By: #### 5 7021-8 ####FIELDS LABORATORYCLIA [id number] [address] Neutrophils/100 WBC (Bld) 61.5 % Normal [facility] Comment on above: Order Comment: Speci men Type: BLOOD SPECIMENOrdering Facility: [facility] Address: [address] [place] [address] Performed By: #### 5 7021-8 ####FIELDS LABORATORYCLIA [id number] [place] [address] [place] Nucleated RBC (Bld) [#/Vol] 10*3/uL Normal <0.01 [facility] Comment on above: Order Comment: Speci men Type: BLOOD SPECIMENOrdering Facility: [facility] Address: [address] [place] [address] Performed By: #### 5 7021-8 ####FIELDS LABORATORYCLIA [id number] [address] [place] [facility] Nucleated RBC/100 WBC (Bld) [Ratio] 0.0 /[address] [facility] Comment on above: Order Comment: Speci men Type: BLOOD SPECIMENOrdering Facility: [facility] Address: [address] [place] [address] Performed By: #### 5 7021-8 ####FIELDS LABORATORYCLIA [id number] [address] [place] Platelet mean volume (Bld) [Entitic vol] 10.9 fL Normal 9.0-12.7 [facility] Comment on above: Order Comment: Speci men Type: BLOOD SPECIMENOrdering Facility: [facility] Address: [address] [place] [address] Performed By: #### 5 7021-8 ####FIELDS LABORATORYCLIA [id number] [address] [place] Platelets (Bld) [#/Vol] 288 10*3/uL Normal 150-400 [facility] Comment on above: Order Comment: Speci men Type: BLOOD SPECIMENOrdering Facility: [facility] Address: [address] [place], [place] [address], [place] [address] Performed By: #### 5 7021-8 ####FIELDS LABORATORYCLIA [id number] [place] [address] [place] RBC (Bld) [#/Vol] 4.23 10*6/uL Normal 3.90-5.20 [facility] Comment on above: Order Comment: Speci men Type: BLOOD SPECIMENOrdering Facility: [facility] Address: [address] [place] [address] [place] [id number] Performed By: #### 5 7021-8 ####FIELDS LABORATORYCLIA [id number] [place] [id number] [place] WBC (Bld) [#/Vol] 10.66 10*3/uL Normal 3.70-11.00 [facility] Comment on above: Order Comment: Speci men Type: BLOOD SPECIMENOrdering Facility: [facility] Address: [address] [place], [place] [address] Performed By: #### 5 7021-8 ####FIELDS LABORATORYCLIA [id number] [address] OF [facility] CT ABD/PEL W IVCONon 024 CT ABD/PEL W IVCON * * *Final Report* * * DATE OF EXAM: Dec 20 2023 7:57PM [facility] [place] 0530 - CT ABD/PEL W IVCON / PROCEDURE REASON: Nausea/vomiting * * * * Physician Interpretation * * * * EXAMINATION: CT ABDOMEN AND PELVIS WITH IV CONTRAST HISTORY: Clinical information: Nausea/vomiting pt diagnosed with appendicitis and told it was in early stages and to follow up in 5 days, pt is having by arterial horrible pain and coming in for second opinon Was diagnosed with appendicitis 5 days ago TECHNIQUE: CT of the abdomen and pelvis was performed using standard technique, scanning from just above the dome of the diaphragm to the symphysis pubis. MQ: CTAP_3 Contrast: IV: 100 ml of Omnipaque 350 : ml of CT Radiation dose: Integrated Dose-length product (DLP) for this visit = 144.87 mGy*cm. CT Dose Reduction Employed: Automated exposure control(AEC) and iterative recon COMPARISON: CT abdomen pelvis 06/29/2014 Result: CT ABDOMEN: Lower thorax: Unremarkable. Liver: No mass. Homogeneous texture. Biliary: No ductal dilatation is seen. . GI tract: * The appendix is visualized on coronal image 601/40 and axial image . There may be some slight enhancement of the wall the appendix. Appendix is not enlarged. It Measures 5 mm in diameter which is normal size.. The wall of the appendix is not thickened. There are no apparent inflammatory changes in the surrounding fatty tissues Spleen: Spleen is unremarkable. Pancreas: No mass or duct dilation. Adrenals: Adrenal glands are unremarkable. Kidneys: RIGHT kidney: No masses No calcifications are seen. No hydronephrosis is seen. LEFT kidney: No masses No calcifications are seen. No hydronephrosis is seen. Lymph nodes: No evidence of adenopathy. Mesentery/Peritoneum: No ascites or mass. Vasculature: No evidence of dilatation of the abdominal aorta. Bony structures: No fractures or dislocations are seen. Soft tissues: No acute findings. CT PELVIS FINDINGS: * There are prominent vessels and in the pelvis adjacent to the uterus for example on axial image Lymph Nodes: No enlarged lymph nodes. Urinary bladder: Unremarkable Traveling Buyer (topogram) images: No additional findings IMPRESSION: 1. The appendix is normal in size. There is no evidence of inflammatory changes surrounding the appendix. The wall of the appendix does not appear thickened.The only findings suggesting acute appendicitis is that there may be some slight enhancement of the wall of the appendix. These findings should be correlated clinically. 2. There are prominent vessels around the periphery of the uterus. This can be seen with pelvic congestion syndrome Pcb Design Engineer: VICK Transcribe Date/Time: Dec 20 2023 8:28P Dictated by : GHASSAN REED DO This examination was interpreted and the report reviewed and electronically signed by: GHASSAN REED DO on Dec 20 2023 8:43PM EST [id number] Normal [facility] Comprehensive metabolic 2000 panelon 12-20-2023 Albumin [Mass/Vol] 4.6 g/dL Normal 3.9-4.9 [facility] Comment on above: Order Comment: Speci men Type: BLOOD SPECIMENOrdering Facility: [facility] Address: [address] [place] [address] Performed By: #### H [facility] [place], , ####FIELDS LABORATORYCLIA [id number] [place] [address] [place] ALP [Catalytic activity/Vol] 69 U/L Normal 34-123 [facility] Comment on above: Order Comment: Speci men Type: BLOOD SPECIMENOrdering Facility: [facility] Address: [address] [place] [address] Performed By: #### H CGED, , ####FIELDS LABORATORYCLIA [id number] [place] [address] [place] ALT [Catalytic activity/Vol] 12 U/L Normal 7-38 [facility] Comment on above: Order Comment: Speci men Type: BLOOD SPECIMENOrdering Facility: [facility] Address: [address] [place] [address] Performed By: #### Michael MOLINAED, , ####FIELDS LABORATORYCLIA [id number] [place] [address] [place] Anion gap [Moles/Vol] 10 mmol/L Normal 8-15 [facility] Comment on above: Order Comment: Speci men Type: BLOOD SPECIMENOrdering Facility: [facility] Address: [address] [place] [address] Performed By: #### Michael MOLINAED, , ####FIELDS LABORATORYCLIA [id number] [place] [id number] [place] AST [Catalytic activity/Vol] 18 U/L Normal 13-35 [facility] Comment on above: Order Comment: Speci men Type: BLOOD SPECIMENOrdering Facility: [facility] Address: [address] [place] [address] Performed By: #### H CGED, , ####FIELDS LABORATORYCLIA [id number] [place] [address] [place] Bilirubin [Mass/Vol] 0.2 mg/dL Normal 0.2-1.3 [facility] Comment on above: Order Comment: Speci men Type: BLOOD SPECIMENOrdering Facility: [facility] Address: [address] [place] [address] Performed By: #### H CGED, , ####FIELDS LABORATORYCLIA [id number] [place] [address] [place] Calcium [Mass/Vol] 9.2 mg/dL Normal 8.5-10.2 [facility] Comment on above: Order Comment: Speci men Type: BLOOD SPECIMENOrdering Facility: [facility] Address: [address] [place] [address] [place] [address] Performed By: #### H CGED, , ####FIELDS LABORATORYCLIA [id number] [place] [address] [place] Chloride [Moles/Vol] 104 mmol/L Normal 98-107 [facility] Comment on above: Order Comment: Speci men Type: BLOOD SPECIMENOrdering Facility: [facility] Address: [address] [place] [address] Performed By: #### H CGED, , ####FIELDS LABORATORYCLIA [id number] [place] [address] [place] CO2 [Moles/Vol] 24 mmol/L Normal 22-30 [facility] Comment on above: Order Comment: Speci men Type: BLOOD SPECIMENOrdering Facility: [facility] Address: [facility] [place] [address] Performed By: #### H NATALIE, , ####FIELDS LABORATORYCLIA [id number] [place] [address] [place] Creatinine [Mass/Vol] 0.62 mg/dL Normal 0.58-0.96 [facility] Comment on above: Order Comment: Speci men Type: BLOOD SPECIMENOrdering Facility: [facility] Address: [address] [place] [address] [place] [address] Performed By: #### H CGED, , ####FIELDS LABORATORYCLIA [id number] [place] [address] [place] Creatinine and Glomerular filtration rate.predicted panel (S/P/Bld) 119 mL/min/1.73m??? Normal >=60 [facility] Comment on above: Order Comment: Anamaria dumont Type: BLOOD SPECIMENOrdering Facility: [facility] Address: [address] [place] [address] Result Comment: Julissa mated Glomerular Filtration Rate (eGFR) is calculated using the 2020 CKD-EPI creatinine equation. This equation utilizes serum creatinine, sex, and age as parameters. The creatinine assay has traceable calibration to isotope dilution-mass spectrometry. Refer to KDIGO guidelines for clinical interpretation. In patients with unstable renal function, e.g. those with acute kidney injury, the eGFR may not accurately reflect actual GFR. Performed By: #### H CGED, 36143-8, ####DIAMOND LABORATORYCLIA [id number] [place] [id number] [place] Glucose [Mass/Vol] 79 mg/dL Normal 74-99 [facility] Comment on above: Order Comment: Anamaria dumont Type: BLOOD SPECIMENOrdering Facility: [facility] Address: [address] [place] [address] Result Comment: The [place] Diabetes Association (ADA) provides guidance for cutoff values for fasting glucose and random glucose. The ADA defines fasting as no caloric intake for at least 8 hours. Fasting plasma glucose results between 100 to 125 mg/dL indicate increased risk for diabetes (prediabetes). Fasting plasma glucose results greater than or equal to 126 mg/dL meet the criteria for diagnosis of diabetes. In the absence of unequivocal hyperglycemia, results should be confirmed by repeat testing. In a patient with classic symptoms of hyperglycemia or hyperglycemic crisis, random plasma glucose results greater than or equal to 200 mg/dL meet the criteria for diagnosis of diabetes. Reference: Standards of Medical Care in Diabetes 2016, [place] [employer] Association. Diabetes Care. 2016.39(Suppl 1). Performed By: #### H CGED, 88065-3, ####FIELDS LABORATORYCLIA [id number] [place] [address] [place] Potassium [Moles/Vol] 4.0 mmol/L Normal 3.7-5.1 [facility] Comment on above: Order Comment: Anamaria dumont Type: BLOOD SPECIMENOrdering Facility: [facility] Address: [address] [place] [address] Performed By: #### H CGED, 64960-6, 85067-9 ####FIELDS LABORATORYCLIA [id number] [address] Protein [Mass/Vol] 7.2 g/dL Normal 6.3-8.0 [facility] Comment on above: Order Comment: Speci men Type: BLOOD SPECIMENOrdering Facility: [facility] Address: [address] [facility] [address] Performed By: #### H CGED, 31519-1, ####FIELDS LABORATORYCLIA [id number] [address] [place] Sodium [Moles/Vol] 138 mmol/L Normal 136-144 [facility] Comment on above: Order Comment: Speci men Type: BLOOD SPECIMENOrdering Facility: [facility] Address: [address] [place] [address] Performed By: #### H CGED, 65479-6, 35755-1 ####FIELDS LABORATORYCLIA [id number] [address] [place] Urea nitrogen [Mass/Vol] 6 mg/dL Low 7-21 [facility] Comment on above: Order Comment: Speci men Type: BLOOD SPECIMENOrdering Facility: [facility] Address: [facility] [place] [address] Performed By: #### H CGED, 37824-1, 91148-0 ####FIELDS LABORATORYCLIA [id number] [address] [place] ED NOTEon 12-20-2023 ED NOTE HNO ID: [id number] Author: SHERIE VYAS RN Service: Nursing Author Type: Registered Nurse Type: ED Notes Filed: 12/20/2023 21:43 Note Text: Pt was updated of her hospital bed assignment [facility] ED NOTE HNO ID: [id number] Author: SHERIE VYAS RN Service: Nursing Author Type: Registered Nurse Type: ED Notes Filed: 12/20/2023 19:58 Note Text: Pt has gone to and from ct scan per the wheelchair Normal [facility] ED NOTE HNO ID: [id number] Author: SHERIE VYAS, RN Service: Nursing Author Type: Registered Nurse Type: ED Notes Filed: 12/20/2023 19:23 Note Text: Pt is in a position of comfort after being medicated for RLQ pain female is bedside With the pt [facility] ED NOTE HNO ID: [id number] Author: SHERIE VYAS RN Service: Nursing Author Type: Registered Nurse Type: ED Notes Filed: 12/20/2023 19:03 Note Text: PA is bedside to assess the pt female is bedside with the pt [facility] ED NOTE HNO ID: [id number] Author: BILLIE OLVERA RN Service: ? Author Type: Registered Nurse Type: ED Notes Filed: 12/20/2023 17:57 Note Text: pt offered Garcia bed and declined pt states she will wait for a room to open up. [facility] ED PROV NOTEon 12-20-2023 ED PROV NOTE HNO ID: [id number] Author: BABS HURST MD Service: Emergency Medicine Author Type: Physician Type: ED Provider Notes Filed: 12/21/2023 17:17 Note Text: ED Provider Note Patient Name: Bella Carlin : 1990 SERVICE DATE: 12/20/23 History Patient presents with: Abdominal Pain: pt diagnosed with appendicitis and told it was in early stages and to follow up in 5 days, pt is having horrible pain and coming in for second opinon UTI Fever Nausea AND Vomiting 33-year-old white female that presents to the emergency room with her friend via personal vehicle for appendicitis. The patient states that she was seen at [facility] emergency room yesterday. She had a CT and was diagnosed with appendicitis, kidney stone and UTI. She was seen by general surgery and they recommend that she take Augmentin and see her in follow-up on 12/23/2023. The patient states that despite taking the Augmentin she continues to have pain as well as fevers. She has been having nausea and vomiting and states that she overall feels worse than she did yesterday. This is what prompted her to come to the emergency room today. 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 PAST MEDICAL HISTORY Diagnosis Date Adjustment disorder with depressed mood PAST SURGICAL HISTORY Procedure Laterality Date TYMPANOSTOMY LOCAL/TOPICAL ANESTHESIA FAMILY HISTORY Problem Relation Age of Onset Cancer Maternal Grandmother lung Social History Tobacco Use Smoking status: Every Day Current packs/day: 0.50 Types: Cigarettes Smokeless tobacco: Never Tobacco comments: smokes 3-4 ciggs Substance and Sexual Activity Alcohol use: No Drug use: No Sexual activity: Not Currently Partners: Male control/protection: Condom ALLERGIES No Known Allergies Review of Systems Constitutional: Positive for activity change, appetite change and fever. Gastrointestinal: Positive for abdominal pain, nausea and vomiting. Genitourinary: Negative for dysuria, flank pain and hematuria. All other systems reviewed and are negative. Physical Exam Vitals BP Pulse Temp Temp src Resp SpO2 Weight Height 12/20/23 1739 12/20/23 1739 12/20/23 1739 12/20/23 1739 12/20/23 1739 12/20/23 1739 12/20/23 1739 12/20/23 2220 111/73 73 36.4 ?C (97.5 ?F) Oral 18 99 % 54.4 kg (120 lb) 1.532 m (5' 0.3) Physical Exam Vitals and nursing note reviewed. Exam conducted with a ciso present (Friend and Staff). Constitutional: General: She is awake. She is in acute distress. Appearance: Normal appearance. She is well-developed, well-groomed and normal weight. She is not ill-appearing, toxic-appearing or diaphoretic. HENT: Head: Normocephalic and atraumatic. Jaw: There is normal jaw occlusion. Right Ear: Hearing, tympanic membrane, ear canal and external ear normal. Left Ear: Hearing, tympanic membrane, ear canal and external ear normal. Nose: Nose normal. Mouth/Throat: Lips: [place]. Mouth: Mucous membranes are dry. Pharynx: Oropharynx is clear. Uvula midline. Eyes: General: Lids are normal. Vision grossly intact. Extraocular Movements: Extraocular movements intact. Conjunctiva/sclera: Conjunctivae normal. Pupils: Pupils are equal, round, and reactive to light. Neck: Trachea: Trachea and phonation normal. Meningeal: Brudzinski's sign and Kernig's sign absent. Cardiovascular: Rate and Rhythm: Normal rate and regular rhythm. Pulses: Normal pulses. Dorsalis pedis pulses are 2+ on the right side and 2+ on the left side. Posterior tibial pulses are 2+ on the right side and 2+ on the left side. Heart sounds: Normal heart sounds. No murmur heard. Pulmonary: Effort: Pulmonary effort is normal. Breath sounds: Normal breath sounds and air entry. No stridor. Abdominal: General: Abdomen is flat. Bowel sounds are normal. Palpations: Abdomen is soft. Tenderness: There is abdominal tenderness in the right lower quadrant. There is guarding. There is no right CVA tenderness, left CVA tenderness or rebound. Positive signs include McBurney's sign. Negative signs include Amaya's sign, Rovsing's sign, psoas sign and obturator sign. Musculoskeletal: General: Normal range of motion. Cervical back: Full passive range of motion without pain, normal range of motion and neck supple. Right lower leg: No edema. Left lower leg: No edema. Lymphadenopathy: Cervical: No cervical adenopathy. Skin: General: Skin is warm and dry. Capillary Refill: Capillary refill takes less than 2 seconds. Findings: No rash. Neurological: General: No focal deficit present. Mental Status: She is alert and oriented to person, place, and time. Mental status is at baseline. GCS: GCS eye subscore is 4. GCS verbal subscore is 5. GCS motor subscore is 6. Cranial Nerves: No cranial nerve deficit. Sensory: Sensation is intact. Motor: Motor function is intact. (more content not included)... Normal [facility] HISTORY PHYSICALon HISTORY PHYSICAL HNO ID: [id number] Author: LALIT MALONE MD Service: General Internal Medicine Author Type: Nurse Practitioner Type: H&P Filed: 12/21/2023 09:15 Note Text: Attestation signed by Lalit Malone MD at 12/21/2023 9:15 AM Attending Note I have personally performed a face to face assessment of the patient and have reviewed the RAMON note. I performed a substantive portion of the visit including all aspects of the following. My dumas findings include: Pt feels improved this am, wanting to ty diet. Did require pin medication Symptoms began after starting latuda, has had n/v, diarrhea and decreased appetite, af here. Er reports from [place] not yet available tho requested Exam: BP 92/54 Pulse (!) 57 Temp 36.4 ?C (97.5 ?F) (Oral) Resp 18 Ht 161.3 cm (5' 3.5) Wt 52 kg (114 lb 10.2 oz) LMP (LMP Unknown) SpO2 97% BMI 19.99 kg/m? BP 92/54 Pulse (!) 57 Temp 36.4 ?C (97.5 ?F) (Oral) Resp 18 Ht 161.3 cm (5' 3.5) Wt 52 kg (114 lb 10.2 oz) LMP (LMP Unknown) SpO2 97% BMI 19.99 kg/m? Body mass index is 19.99 kg/m?. General appearance: Well appearing, alert, in no acute distress Head: Normocephalic, atraumatic Eyes: Anicteric sclera , Pupils are equally round and reactive Neck: No JVD, Trachea midline Abdomen: Abdomen soft, mild tn mainly in llq and left mid abd, no rlq tn. Non distended. No masses, organomegaly Extremities:No clubbing, cyanosis, or edema. Neuro: Alert and oriented times three, No apparent distress Ct and labs reviewed A/p clinically not classic picture of appendicitis Many of her sx have rehan reported with use of latuda which she started on 12/05 Will start liquid diet, and reassess, if doing well planned home at lunch. After am socorroy pt had rn call as wanted to go home. While writing note noifid that pt just left and stated would ome back if new sx. Left without notic and thrfore no dc instructions able to be given Signature: Lalit Malone MD Date: 12/21/2023 Time: 9:08 AM History and Physical Examination SERVICE DATE: 12/20/2023 SERVICE TIME: 2300 PCP: No primary care provider on file. PRIMARY ATTENDING: Lalit Grossman MD Subjective CHIEF COMPLAINT: Abd pain, nausea, vomiting and intermittent chills HPI: Patient is a 33 year old female with a past medical history significant for depression and anxiety who presents to ED 12/19 with complaints of nausea, vomiting, RLQ abd pain and intermittent chills. Of note per the patient, she presented to [facility] 12/18 and was diagnosed with early stages of appendicitis as well as UTI and kidney stone. Now in ED UA neg for leuks, nitrites or bacteria. Patient states that she is asymptomatic of UTI symptoms and has not experienced any symptoms at all. CT a/p showing normal size appendix, with no inflammation, or wall thickening but possible slight enhancement of the wall. Also showing prominent vessels around periphery of the uterus. No leukocytosis present. Vitals/labs all WNL. Patient afebrile on admit.Patient admitted for further management for concern for appendicitis ED workup: - Labs and imaging as above - S/p 2L NS bolus - S/p 0.5mg dilaudid and 15mg IV toradol for pain History provided by: patient FUNCTIONAL STATUS: Independent PAST MEDICAL HISTORY Diagnosis Date Adjustment disorder with depressed mood PAST SURGICAL HISTORY Procedure Laterality Date TYMPANOSTOMY LOCAL/TOPICAL ANESTHESIA FAMILY HISTORY Problem Relation Age of Onset Cancer Maternal Grandmother lung Social History Tobacco Use Smoking status: Every Day Current packs/day: 0.50 Types: Cigarettes Smokeless tobacco: Never Tobacco comments: smokes 3-4 ciggs Substance Use Topics Alcohol use: No Drug use: No I have confirmed and edited as necessary, the PFSH obtained by others. ALLERGIES No Known Allergies Prior to Admission Medications Prescriptions Last Dose Informant Patient Reported? Taking? escitalopram oxalate (LEXAPRO) 10 mg tablet 12/19/2023 at PM Yes Yes Sig: Take 1 tablet by mouth every afternoon. escitalopram oxalate (LEXAPRO) 5 mg tablet Yes No Sig: Take 1 tablet by mouth every afternoon. Patient not taking: Reported on 12/20/2023 fluticasone (FLONASE) 50 mcg/actuation nasal spray 12/19/2023 No Yes Sig: Use 2 Sprays in each nostril once daily. Rinse mouth after use. guaiFENesin (MUCINEX) 600 mg 12 hr tablet No No Sig: Take 2 tablets by mouth twice daily. hydrOXYzine HCl (ATARAX) 25 mg tablet 12/19/2023 at PM Yes Yes Sig: take 1 tablet by mouth at bedtime and 1 tablet by mouth once kyle... (REFER TO PRESCRIPTION NOTES). lurasidone (LATUDA) 20 mg tablet Yes No Sig: Take 20 mg by mouth once daily. Facility-Administered Medications: None REVIEW OF SYSTEMS: Review of Systems Con (more content not included)... Normal [facility] Magnesium SerPl-mCncon 12-19 Magnesium [Mass/Vol] 2.1 mg/dL Normal 1.7-2.3 [facility] Comment on above: Order Comment: Speci men Type: BLOOD SPECIMENOrdering Facility: [facility] Address: [address] [place] [address] Performed By: #### H CGED, 40249-1, 67075-9 ####[facility] LABORATORYCLIA [id number] [place] [address] [place] Urinalysis complete panel (U )on 12-20-2023 Bilirubin Ql (U) Negative Normal Negative [facility] Comment on above: Order Comment: Speci men Type: URINE SPECIMENOrdering Facility: [facility] Address: [address] [place] [address] Performed By: #### 2 4356-8 ####[facility] LABORATORYCLIA [id number] [place] [address] [place] Clarity (Unsp spec) Clear Normal Clear [facility] Comment on above: Order Comment: Speci men Type: URINE SPECIMENOrdering Facility: [facility] Address: [address] [place] [address] Performed By: #### 2 4356-8 ####[facility]ORATORYCLIA [id number] [address] [place] Color (U) Yellow Normal Yellow [facility] Comment on above: Order Comment: Speci men Type: URINE SPECIMENOrdering Facility: [facility] Address: [address] [place] [address] Performed By: #### 2 4356-8 ####[facility] LABORATORYCLIA [id number] [place] [address] [facility] Epithelial cells LM.HPF (Urine sed) [#/Area] Few Normal [facility] Comment on above: Order Comment: Speci men Type: URINE SPECIMENOrdering Facility: [facility] Address: [address] [place] [address] Performed By: #### 2 4356-8 ####[facility] LABORATORYCLIA [id number] [place] [address] [place] Glucose Test strip (U) [Mass/Vol] Negative Normal Negative [facility] Comment on above: Order Comment: Speci men Type: URINE SPECIMENOrdering Facility: [facility] Address: [address] [place] [address] Performed By: #### 2 4356-8 ####[facility] LABORATORYCLIA [id number] [address] [place] Hemoglobin Ql (U) Negative Normal Negative [facility] Comment on above: Order Comment: Speci men Type: URINE SPECIMENOrdering Facility: [facility] Address: [address] [place] [address] Performed By: #### 2 4356-8 ####[facility] LABORATORYCLIA [id number] [address] Ketones Ql (U) 1+ Abnormal Negative [facility] Comment on above: Order Comment: Speci men Type: URINE SPECIMENOrdering Facility: [facility] Address: [address] [place] [address] Performed By: #### 2 4356-8 ####[facility] LABORATORYCLIA [id number] [address] Leukocyte esterase Test strip Ql (U) Negative Normal Negative [facility] Comment on above: Order Comment: Speci men Type: URINE SPECIMENOrdering Facility: [facility] Address: [address] [place] [address] Performed By: #### 2 4356-8 ####[facility] LABORATORYCLIA [id number] [place] [address] [place] Nitrite Ql (U) Negative Normal Negative [facility] Comment on above: Order Comment: Speci men Type: URINE SPECIMENOrdering Facility: [facility] Address: [address] [place] [address] Performed By: #### 2 4356-8 ####[facility] LABORATORYCLIA [id number] [place] [address] [place] pH (U) 7.5 [pH] Normal 5.0-8.0 [facility] Comment on above: Order Comment: Speci men Type: URINE SPECIMENOrdering Facility: [facility] Address: [address] [place] [address] Performed By: #### 2 4356-8 ####[facility] LABORATORYCLIA [id number] [place] [address] [place] Protein (U) [Mass/Vol] Negative Normal Negative [facility] Comment on above: Order Comment: Speci men Type: URINE SPECIMENOrdering Facility: [facility] Address: [address] [place] [address] Performed By: #### 2 4356-8 ####[facility] LABORATORYCLIA [id number] [place] [address] [place] RBC LM.HPF (Urine sed) [#/Area] 0-3 /HPF Normal 0-3 /HPF [facility] Comment on above: Order Comment: Speci men Type: URINE SPECIMENOrdering Facility: [facility] Address: [address] [place] [address] Performed By: #### 2 4356-8 ####[facility] LABORATORYCLIA [id number] [place] [address] [place] Specific gravity (U) [Rel density] 1.015 Normal 1.005-1.030 [facility] Comment on above: Order Comment: Speci men Type: URINE SPECIMENOrdering Facility: [facility] Address: [address] [place] [address] Performed By: #### 2 4356-8 ####[facility] LABORATORYCLIA [id number] [address] Urobilinogen Ql (U) 0.2 EU/dL Normal 0.2-1.0 EU/dL [facility] Comment on above: Order Comment: Speci men Type: URINE SPECIMENOrdering Facility: [facility] Address: [address] [place] [address] Performed By: #### 2 4356-8 ####[facility] LABORATORYCLIA [id number] [address] WBC LM.HPF (Urine sed) [#/Area] 0-5 /HPF Normal 0-5 /HPF [facility] Comment on above: Order Comment: Speci men Type: URINE SPECIMENOrdering Facility: [facility] Address: [address] [place] [address] Performed By: #### 2 4356-8 ####[facility]ORATORYCLIA [id number] [address] .Auto Diffon 12-19-2023 Basophil, Absolute 0.1 10 3/mcL Normal 0.0-0.2 [facility] Comment on above: Performed By: #### C TRISH DC MDW, GFR, ADIFF, CBC, LIP #### [address] [address] Basophils/100 WBC (Bld) 0.5 % Normal 0.0-2.5 [facility] Comment on above: Performed By: #### C TRISH DC MDW, GFR, ADIFF, CBC, LIP #### [address] [address] Eosinophil, Absolute 0.1 10 3/mcL Normal 0.0-0.7 [facility] Comment on above: Performed By: #### C TRISH DC MDW, GFR, ADIFF, CBC, LIP #### [address] [address] Eosinophils/100 WBC (Bld) 1.0 % Normal 0.0-7.0 [facility] Comment on above: Performed By: #### C MP, ANEU, MDW, GFR, ADIFF, CBC, LIP #### [address] [address] Lymphocyte, Absolute 2.0 10 3/mcL Normal 0.9-4.3 [facility] Comment on above: Performed By: #### C VANDA, ANEU, MDW, GFR, ADIFF, CBC, LIP #### [address] [address] Lymphocytes/100 WBC (Bld) 16.3 % Low 20.0-40.0 [facility] Comment on above: Performed By: #### C VANDA, TRISH, W, GFR, ADIFF, CBC, LIP #### [address] [address] Monocyte, Absolute 0.9 10 3/mcL Normal 0.1-1.4 [facility] Comment on above: Performed By: #### C VANDA, MD TRISHW, GFR, ADIFF, CBC, LIP #### [address] [address] Monocytes/100 WBC (Bld) 7.5 % Normal 2.0-13.0 [facility] Comment on above: Performed By: #### C VANDA, MD TRISHW, GFR, ADIFF, CBC, LIP #### [address] [address] Neutrophils/100 WBC (Bld) 74.7 % Normal 50.0-75.0 [facility] Comment on above: Performed By: #### C VANDA, MD TRISHW, GFR, ADIFF, CBC, LIP #### [address] [address] .GFRon 12-19-2023 GFR 110 ml/min/1.73sqm Normal [facility] Comment on above: Result Comment: GFR Population mean for , Non- Americans Ages 20-29 = 116 mL/min/1.73 sq.m. Ages 30-39 = 107 mL/min/1.73 sq.m. Ages 40-49 = 99 mL/min/1.73 sq.m. Ages 50-59 = 93 mL/min/1.73 sq.m. Ages 60-69 = 85 mL/min/1.73 sq.m. Ages 70+ = 75 mL/min/1.73 sq.m. Chronic Kidney Disease: Less than 60 mL/min/1.73 square meters End Stage Renal Disease: Less than 15 mL/min/1.73 square meters Performed By: #### P REGU #### [address] [address] GFR Non- 91 ml/min/1.73sqm Normal [facility] Comment on above: Result Comment: GFR Population mean for , Non- Americans Ages 20-29 = 116 mL/min/1.73 sq.m. Ages 30-39 = 107 mL/min/1.73 sq.m. Ages 40-49 = 99 mL/min/1.73 sq.m. Ages 50-59 = 93 mL/min/1.73 sq.m. Ages 60-69 = 85 mL/min/1.73 sq.m. Ages 70+ = 75 mL/min/1.73 sq.m. Chronic Kidney Disease: Less than 60 mL/min/1.73 square meters End Stage Renal Disease: Less than 15 mL/min/1.73 square meters Performed By: #### P REGU #### [place] [id number] .MDWon 12-19-2023 Monocyte Distribution Width 14.99 Normal 0.00-20.00 [facility] Comment on above: Result Comment: For ED adult patients suspected of sepsis, MDW<=20.0 does not rule out sepsis or risk of sepsis Performed By: #### C MP, ANEU, MDW, GFR, ADIFF, CBC, LIP #### [address] [address] .NEUABSon 12-19-2023 Neutrophil, Absolute 9.0 10 3/mcL High 2.3-8.1 [facility] Comment on above: Performed By: #### C MP, ANEU, MDW, GFR, ADIFF, CBC, LIP #### [address] [address] .Urinalysis Microscopic (AO) on 12-19-2023 UA Amorphus 2+ /hpf Normal [facility] Comment on above: Performed By: #### U AMICAO, UA #### [place] [address] UA Bacteria Trace Abnormal [facility] Comment on above: Performed By: #### U AMICAO, UA #### [place] [address] UA Mucous 2+ /hpf Normal [facility] Comment on above: Performed By: #### U AMICAO, UA #### [place] [address] UA RBC 0-5 Abnormal None Seen [facility] Comment on above: Performed By: #### U AMICAO, UA #### [place] [address] UA Squam Epithelial 15-25 Abnormal None Seen [facility] Comment on above: Performed By: #### U AMICAO, UA #### [place] [address] UA WBC 0-5 Abnormal None Seen [facility] Comment on above: Performed By: #### U AMICAO, UA #### [place] [address] CBCon 12-19-2023 Erythrocyte distribution width (RBC) [Ratio] 13.2 % Normal 11.5-15.5 [facility] Comment on above: Performed By: #### C TRISH DC MDW, GFR, ADIFF, CBC, LIP #### [place] [address] Hematocrit (Bld) [Volume fraction] 38.9 % Normal 34.0-46.0 [facility] Comment on above: Performed By: #### C TRISH DC MDW, GFR, ADIFF, CBC, LIP #### [place] [address] Hgb 12.8 G/dL Normal 12.0-16.0 [facility] Comment on above: Performed By: #### C MP, ANEU, MDW, GFR, ADIFF, CBC, LIP #### [address] [address] MCH (RBC) [Entitic mass] 30.8 pg Normal 27.0-33.0 [facility] Comment on above: Performed By: #### C MP, ANEU, MDW, GFR, ADIFF, CBC, LIP #### [address] [address] MCHC 32.9 G/dL Normal 32.0-36.0 [facility] Comment on above: Performed By: #### C MP, ANEU, MDW, GFR, ADIFF, CBC, LIP #### [address] [address] MCV (RBC) [Entitic vol] 93.5 fL Normal 80.0-99.0 [facility] Comment on above: Performed By: #### C MP, ANEU, MDW, GFR, ADIFF, CBC, LIP #### [address] [address] Platelet 263 10 3/mcL Normal 150-450 [facility] Comment on above: Performed By: #### C MP, ANEU, MDW, GFR, ADIFF, CBC, LIP #### [address] [address] Platelet mean volume (Bld) [Entitic vol] 9.1 fL Normal 6.6-10.5 [facility] Comment on above: Performed By: #### C MP, ANEU, MDW, GFR, ADIFF, CBC, LIP #### [address] [address] RBC 4.16 10 6/mcL Normal 4.10-5.30 [facility] Comment on above: Performed By: #### C MP, ANEU, MDW, GFR, ADIFF, CBC, LIP #### [address] [address] WBC 12.0 10 3/mcL High 4.5-10.8 [facility] Comment on above: Performed By: #### C VANDA, TRISH, MDW, GFR, ADIFF, CBC, LIP #### [address] [address] CMPon 12-19-2023 Albumin Level 4.3 G/dL Normal 3.5-5.0 [facility] Comment on above: Performed By: #### C VANDA, TRISH, MDW, GFR, ADIFF, CBC, LIP #### [address] [address] Albumin/Globulin [Mass ratio] 1.6 {ratio} Normal 1.1-2.5 [facility] Comment on above: Performed By: #### C VANDA, TRISH, MDW, GFR, ADIFF, CBC, LIP #### [address] [address] ALP [Catalytic activity/Vol] 78 U/L Normal 40-135 [facility] Comment on above: Performed By: #### C VANDA, TRISH, MDW, GFR, ADIFF, CBC, LIP #### [address] [address] ALT [Catalytic activity/Vol] 22 U/L Normal 14-59 [facility] Comment on above: Performed By: #### C VANDA, TRISH, MDW, GFR, ADIFF, CBC, LIP #### [address] [address] AST [Catalytic activity/Vol] 14 U/L Normal 10-40 [facility] Comment on above: Performed By: #### C VANDA, TRISH, MDW, GFR, ADIFF, CBC, LIP #### [address] [address] Bili Total 0.3 mg/dL Normal 0.2-1.0 [facility] Comment on above: Result Comment: Use of this assay is not recommended for patients undergoing treatment with eltrombopag due to the potential for falsely elevated results. Performed By: #### C VANDA, TRISH, MDW, GFR, ADIFF, CBC, LIP #### [address] [address] BUN/Creatinine Ratio 15 ratio Normal 7-27 [facility] Comment on above: Performed By: #### C VANDA, MD TRISHW, GFR, ADIFF, CBC, LIP #### [address] [address] Calcium [Mass/Vol] 9.3 mg/dL Normal 8.4-10.2 [facility] Comment on above: Performed By: #### C VANDA, MD TRISHW, GFR, ADIFF, CBC, LIP #### [address] [address] Chloride [Moles/Vol] 103 mmol/L Normal 98-107 [facility] Comment on above: Performed By: #### C VANDA, TRISH MDW, GFR, ADIFF, CBC, LIP #### [place] [address] CO2 [Moles/Vol] 27 mmol/L Normal 22-29 [facility] Comment on above: Performed By: #### C VANDA, MD TRISHW, GFR, ADIFF, CBC, LIP #### [place] [id number] Creatinine [Mass/Vol] 0.73 mg/dL Normal 0.55-1.02 [facility] Comment on above: Result Comment: Test ing performed on Siemens Dimension EXL analyzer using a modified kinetic Champ technique. Performed By: #### C VANDA, MD TRISHW, GFR, ADIFF, CBC, LIP #### [address] [address] Electrolyte Balance 8.0 mEq/L Normal 4.0-15.0 [facility] Comment on above: Performed By: #### C VANDA, MD TRISHW, GFR, ADIFF, CBC, LIP #### [address] [address] Globulin 2.7 G/dL Normal [facility] Comment on above: Performed By: #### C VANDA, MD TRISHW, GFR, ADIFF, CBC, LIP #### [address] [address] Glucose [Mass/Vol] 87 mg/dL Normal 70-105 [facility] Comment on above: Performed By: #### C MP, ANEU, MDW, GFR, ADIFF, CBC, LIP #### [address] [address] Potassium [Moles/Vol] 4.4 mmol/L Normal 3.5-5.1 [facility] Comment on above: Performed By: #### C MP, ANEU, MDW, GFR, ADIFF, CBC, LIP #### [address] [address] Sodium [Moles/Vol] 138 mmol/L Normal 136-145 [facility] Comment on above: Performed By: #### C MP, ANEU, MDW, GFR, ADIFF, CBC, LIP #### [address] [address] Total Protein 7.0 G/dL Normal 6.4-8.2 [facility] Comment on above: Performed By: #### C MP, ANEU, MDW, GFR, ADIFF, CBC, LIP #### [address] [address] Urea nitrogen [Mass/Vol] 11 mg/dL Normal 7-18 [facility] Comment on above: Performed By: #### C MP, ANEU, MDW, GFR, ADIFF, CBC, LIP #### [address] [address] [address] ABD/PELVIS W/ IV CONTRAST ONLYon 12-19-2023 CT ABD/PELVIS W/ IV CONTRAST ONLY ORIGINAL EXAMINATION: CT OF THE ABDOMEN AND PELVIS WITH CONTRAST 12/19/2023 6:11 pm TECHNIQUE: CT of the abdomen and pelvis was performed with the administration of intravenous contrast. Multiplanar reformatted images are provided for review. Automated exposure control, iterative reconstruction, and/or weight based adjustment of the mA/kV was utilized to reduce the radiation dose to as low as reasonably achievable. COMPARISON: None. HISTORY: ORDERING SYSTEM PROVIDED HISTORY: Reason for Exam: pain FINDINGS: Lower Chest: Visualized lower thorax demonstrates no consolidation or pleural effusion. Organs: The liver demonstrates no biliary duct dilatation or gross mass. There is small hypodense region at the anterior liver adjacent to falciform fissure possibly small cyst or focal fatty infiltration. The gallbladder demonstrates no calcified gallstones or gross wall thickening. The pancreas demonstrates no evidence of mass, ductal dilatation, or inflammatory process. Spleen is normal in size. Adrenal glands are normal in size. Right kidney demonstrates no hydronephrosis or obstructive calculi. There is a left renal 3 mm calculus without hydronephrosis. Ureters are normal in caliber bilaterally. GI/Bowel: Stomach and duodenal sweep demonstrate no acute abnormality. Small bowel and colon are normal in caliber. Appendix measures up to 6 mm with minimal wall thickening and mild enhancement, possible mild/early appendicitis. Correlation with clinical findings and follow-up study may be useful. There are mildly enlarged mesenteric nodes, nonspecific, which may be reactive. There is a small fat-containing periumbilical hernia. Pelvis: Urinary bladder is within normal limits. Uterus and ovaries are grossly normal in morphology. Peritoneum/Retroperito neum: Aorta is normal in caliber. Bones/Soft Tissues: Osseous structures are intact. IMPRESSION: 1. Appendix measures up to 6 mm with minimal wall thickening and mild enhancement, possible mild/early appendicitis. Correlation with clinical findings and follow-up study may be useful. 2. Nonobstructing left renal calculus. Interpreted by: Ayo Ferguson Preliminary Report By: Ayo Ferguson Electronically signed By Ayo Ferguson Dictated Date: 12/19/2023 6:33:24 PM Prelim Date: 12/19/2023 6:46:29 PM Sign Date: 12/19/2023 6:46:29 PM Ordering Provider: DANIELLE JOHN [facility] LABORATORYOrdered By: SYSTEM SYSTEM on 12-19-2023 Albumin BCP dye [Mass/Vol] 4.3 G/dL Normal 3.5 - 5.0 G/dL AO ADM SS Albumin/Globulin [Mass ratio] 1.6 {ratio} Normal 1.1 - 2.5 ratio AO ADM SS ALP [Catalytic activity/Vol] 78 U/L Normal 40 - 135 U/L AO ADM SS ALT With P-5'-P [Catalytic activity/Vol] 22 U/L Normal 14 - 59 U/L AO ADM SS AST With P-5'-P [Catalytic activity/Vol] 14 U/L Normal 10 - 40 U/L AO ADM SS Basophils (Bld) [#/Vol] 0.1 103/mcL Normal 0.0 - 0.2 10^3/mcL AO Workflow SS Basophils/100 WBC (Bld) 0.5 % Normal 0.0 - 2.5 % AO Workflow SS Bilirubin [Mass/Vol] 0.3 mg/dL Normal 0.2 - 1.0 mg/dL AO ADM SS Comment on above: Interpretive Data: U se of this assay is not recommended for patients undergoing treatment with eltrombopag due to the potential for falsely elevated results. Calcium [Mass/Vol] 9.3 mg/dL Normal 8.4 - 10. 2 mg/dL AO ADM SS Chloride [Moles/Vol] 103 mmol/L Normal 98 - 107 mmol/L AO ADM SS CO2 [Moles/Vol] 27 mmol/L Normal 22 - 29 mmol/L AO AD M SS Creatinine [Mass/Vol] 0.73 mg/dL Normal 0.55 - 1.02 mg/dL AO ADM SS Comment on above: Interpretive Data: T esting performed on Siemens Dimension EXL analyzer using a modified kinetic Champ technique. Electrolyte Balance 8.0 mEq/L Normal 4.0 - 15 .0 mEq/L AO ADM SS Eosinophil, Absolute 0.1 103/mcL Normal 0.0 - 0 .7 10^3/mcL AO Workflow SS Eosinophils/100 WBC (Bld) 1.0 % Normal 0.0 - 7.0 % AO Workflow SS Erythrocyte distribution width (RBC) [Ratio] 13.2 % Normal 11.5 - 15.5 % AO Workflow SS GFR/1.73 sq M.predicted among blacks MDRD (S/P/Bld) [Vol rate/Area] 110 ml/min/1.73sqm Invalid Interpretation Code AO Chemistry S Comment on above: Interpretive Data: GFR Population mean for , Non- Americans Ages 20-29 = 116 mL/min/1.73 sq.m. Ages 30-39 = 107 mL/min/1.73 sq.m. Ages 40-49 = 99 mL/min/1.73 sq.m. Ages 50-59 = 93 mL/min/1.73 sq.m. Ages 60-69 = 85 mL/min/1.73 sq.m. Ages 70+ = 75 mL/min/1.73 sq.m. Chronic Kidney Disease: Less than 60 mL/min/1.73 square meters End Stage Renal Disease: Less than 15 mL/min/1.73 square meters GFR/1.73 sq M.predicted among non-blacks MDRD (S/P/Bld) [Vol rate/Area] 91 ml/min/1.73sqm Invalid Interpretation Code AO Chemistry S Comment on above: Interpretive Data: GFR Population mean for , Non- Americans Ages 20-29 = 116 mL/min/1.73 sq.m. Ages 30-39 = 107 mL/min/1.73 sq.m. Ages 40-49 = 99 mL/min/1.73 sq.m. Ages 50-59 = 93 mL/min/1.73 sq.m. Ages 60-69 = 85 mL/min/1.73 sq.m. Ages 70+ = 75 mL/min/1.73 sq.m. Chronic Kidney Disease: Less than 60 mL/min/1.73 square meters End Stage Renal Disease: Less than 15 mL/min/1.73 square meters Globulin 2.7 G/dL Invalid Interpretation Code AO ADM SS Glucose [Mass/Vol] 87 mg/dL Normal 70 - 105 mg/dL AO ADM SS Hematocrit (Bld) [Volume fraction] 38.9 % Normal 34.0 - 46.0 % AO Workflow SS Hemoglobin (Bld) [Mass/Vol] 12.8 G/dL Normal 12.0 - 16.0 G/dL AO Workflow SS Lipase [Catalytic activity/Vol] 32 U/L Normal 16 - 77 U/L AO ADM SS Lymphocytes (Bld) [#/Vol] 2.0 103/mcL Normal 0.9 - 4.3 10^3/mcL AO Workflow SS Lymphocytes/100 WBC (Bld) 16.3 % Low 20.0 - 40.0 % AO Workflow SS MCH (RBC) [Entitic mass] 30.8 pg Normal 27.0 - 33.0 pg AO Workflow SS MCHC 32.9 G/dL Normal 32.0 - 36.0 G/dL AO Workflow SS MCV (RBC) [Entitic vol] 93.5 fL Normal 80.0 - 99.0 fL AO Workflow SS Monocyte distribution width Auto (Bld) [Entitic vol] 14.99 1 Normal 0.00 - 20.00 AO Workflow SS Comment on above: Result Comment: For ED adult patients suspected of sepsis, MDW<=20.0 does not rule out sepsis or risk of sepsis Monocytes (Bld) [#/Vol] 0.9 103/mcL Normal 0.1 - 1.4 10^3/mcL AO Workflow SS Monocytes/100 WBC (Bld) 7.5 % Normal 2.0 - 13.0 % AO Workflow SS Neutrophils (Bld) [#/Vol] 9.0 103/mcL High 2.3 - 8.1 10^3/mcL AO Workflow SS Neutrophils/100 WBC (Bld) 74.7 % Normal 50.0 - 75.0 % AO Workflow SS Platelet mean volume (Bld) [Entitic vol] 9.1 fL Normal 6.6 - 10.5 fL AO Workflow SS Platelets (Bld) [#/Vol] 263 103/mcL Normal 150 - 450 10^3/mcL AO Workflow SS Potassium [Moles/Vol] 4.4 mmol/L Normal 3.5 - 5.1 mmol/L AO ADM SS Protein [Mass/Vol] 7.0 G/dL Normal 6.4 - 8.2 G/dL AO ADM SS RBC (Bld) [#/Vol] 4.16 106/mcL Normal 4.10 - 5.3 0 10^6/mcL AO Workflow SS Sodium [Moles/Vol] 138 mmol/L Normal 136 - 145 mmol/L AO ADM SS Urea nitrogen [Mass/Vol] 11 mg/dL Normal 7 - 18 mg/dL AO ADM SS Urea nitrogen/Creatinine [Mass ratio] 15 ratio Normal 7 - 27 ratio AO ADM SS WBC (Bld) [#/Vol] 12.0 103/mcL High 4.5 - 10.8 10^3/mcL AO Workflow SS LABORATORYOrdered By: Vaishali Cook on 12-19-2023 Appearance (U) Slightly Cloudy *ABN* (12/19/23 5:36 PM) Invalid Interpretation Code Clear AO Auto Urine SS Bacteria LM.HPF (Urine sed) [#/Area] Trace /HPF Invalid Interpretation Code AO Auto Urine SS Bilirubin Ql (U) Negative (12/19/23 5:36 PM) Normal Negative AO Auto Urine SS Color (U) Yellow (12/19/23 5:36 PM) Normal AO Auto Urine SS Crystals.amorphous LM.HPF (Urine sed) [#/Area] 2 /[HPF] Normal AO Auto Urine SS Glucose Test strip (U) [Mass/Vol] Negative Normal Negative AO Auto Urine SS Hemoglobin Auto test strip (U) [Mass/Vol] Small *ABN* (12/19/23 5:36 PM) Invalid Interpretation Code Negative AO Auto Urine SS Ketones Ql (U) Negative Normal Negative AO Auto Urine SS UA Leuk Est Small *ABN* (12/19/23 5:36 PM) Invalid Interpretation Code Negative AO Auto Urine SS UA Mucous 2+ /HPF Normal AO Auto Urine SS UA Nitrite Negative (12/19/23 5:36 PM) Normal Negative AO Auto Urine SS UA pH 6.0 (12/19/23 5:36 PM) Normal 5.0 - 8.0 AO Auto Urine SS UA Protein Negative Normal Negative AO Auto Urine SS UA RBC 0-5 /HPF Invalid Interpretation Code None Seen AO Auto Urine SS UA Spec Grav >=1.030 *ABN* (12/19/23 5:36 PM) Invalid Interpretation Code 1.015-1.025 AO Auto Urine SS UA Specimen Type Clean Catch (12/19/23 5:36 PM) Normal AO Auto Urine SS UA Squam Epithelial 15-25 /HPF Invalid Interpretation Code None Seen AO Auto Urine SS UA Urobilinogen 0.2 E.U./dL Normal 0.2-1.0 AO Auto Urine SS WBC LM.HPF (Urine sed) [#/Area] 0-5 /HPF Invalid Interpretation Code None Seen AO Auto Urine SS LABORATORYOrdered By: Elsy Amaya on 12-19-2023 HCG ( test) Ql Negative (12/19/23 5:36 PM) Normal AO Manual Urine SS test (u) int Not detected Invalid Interpretation Code AO Manual Urine SS LIPon 12-19-2023 Lipase Level 32 U/L Normal 16-77 [facility] Comment on above: Performed By: #### C MP, ANEU, MDW, GFR, ADIFF, CBC, LIP #### [place] [address] [place], [place] [address] PREGUon 12-19-2023 HCG ( test) Ql (U) Negative Normal [facility] Comment on above: Performed By: #### P REGU #### [address] [address] test (u) int Not detected Invalid Interpretation Code [facility] Comment on above: Performed By: #### P REGU #### [address] [address] UAon 12-19-2023 Color (U) Yellow Normal [facility] Comment on above: Performed By: #### U AMICAO, UA #### [place] [id number] Glucose (U) [Mass/Vol] Negative Normal Negative [facility] Comment on above: Performed By: #### U AMICAO, UA #### [place] [address] Ketones Ql (U) Negative Normal Negative [facility] Comment on above: Performed By: #### U AMICAO, UA #### [place] [address] UA Appear Slightly Cloudy Abnormal Clear [facility] Comment on above: Performed By: #### U AMICAO, UA #### [place] [address] UA Blood Small Abnormal Negative [facility] Comment on above: Performed By: #### U AMICAO, UA #### [place] [address] UA Leuk Est Small Abnormal Negative [facility] Comment on above: Performed By: #### U AMICAO, UA #### [place] [address] UA Nitrite Negative Normal Negative [facility] Comment on above: Performed By: #### U AMICAO, UA #### [place] [address] UA pH 6.0 Normal 5.0 - 8.0 [facility] Comment on above: Performed By: #### U AMICAO, UA #### [place] [id number] UA Protein Negative Normal Negative [facility] Comment on above: Performed By: #### U AMICAO, UA #### [place] [address] [place] [phone] UA Spec Grav >=1.030 Abnormal 1.015-1.025 [facility] Comment on above: Performed By: #### U AMICAO, UA #### [place] [address] [place] [address] UA Specimen Type Clean Catch Normal [facility] Comment on above: Performed By: #### U AMICAO, UA #### [place] [address] [place] [address] UA Urobilinogen 0.2 E.U./dL Normal 0.2-1.0 [facility] Comment on above: Performed By: #### U AMICAO, UA #### [place] [address] [place] [address] Urobilinogen (U) [Mass/Vol] Negative Normal Negative [facility] Comment on above: Performed By: #### U AMICAO, UA #### [place] [address] [place] [phone] JAJAOVon 11-13-2023 [facility] BELLA CARLIN ([id number]) 1990 F Date Time Provider Department 11/13/23 9:30 AM TONIO WHARTON [facility] During your visit today, we recorded the following information about you: Temperature Pulse Respiration Blood pressure 98.4 degrees 79/minute 18/minute 108/68 Weight 52 kg Tonio Wharton MD 11/13/2023 9:50 AM Signed Patient presents with: Mouth/Lip Problem: Sore roof of mouth, GARCIA x1 day HPI: Feeling sore mouth since yesterday. Positive symptoms: Sore throat/roof of mouth sore, Headache, ear congestion, Negative symptoms: Cough, Nasal Congestion, Rhinorrhea, Fever, OTC: increasing lexapro, taking hydroxyzine, uses flonase, gets allergy shots MEDICATIONS: Current Outpatient Medications Medication Sig hydrOXYzine HCl (ATARAX) 25 mg tablet take 1 tablet by mouth at bedtime and 1 tablet by mouth once kyle... (REFER TO PRESCRIPTION NOTES). escitalopram oxalate (LEXAPRO) 10 mg tablet Take 1 tablet by mouth every afternoon. fluticasone (FLONASE) 50 mcg/actuation nasal spray Use 2 Sprays in each nostril once daily. Rinse mouth after use. guaiFENesin (MUCINEX) 600 mg 12 hr tablet Take 2 tablets by mouth twice daily. escitalopram oxalate (LEXAPRO) 5 mg tablet Take 1 tablet by mouth every afternoon. (Patient not taking: Reported on 11/13/2023) No current facility-administered medications for this visit. ALLERGIES: ALLERGIES No Known Allergies VITALS: BP 108/68 Pulse 79 Temp 36.9 ?C (98.4 ?F) Resp 18 Wt 52 kg (114 lb 10.2 oz) LMP (LMP Unknown) SpO2 98% PHYSICAL EXAM: GEN: Pleasant, in no acute distress. HEENT: PERRL, EOMI, conjunctiva clear Ears: canals clear. TMs with remote scars; no erythema or bulge; possible right effusion Sinuses: non-tender frontal sinus, non-tender maxillary sinuses Throat: moist mucous membranes, palate erythema, hard palate shallow ulcerations. Neck: supple, no thyromegaly, no lymphadenopathy HEART: regular rate and rhythm, no murmurs LUNGS: clear to auscultation, no wheezes or crackles, no increased WOB ASSESSMENT/PLAN: 1. Oral ulceration - ICD9: 528.9, ICD10: K12.1 (primary diagnosis) 2. Sore throat - ICD9: 462, ICD10: J02.9 - STREP A MOLECULAR (POC) - negative Suspect viral infection of palate. Low suspicion for thrush. Supportive care with lozenges, gargles, throat spray, Orajel, analgesia. Seeing ENT later today for ear effusion follow-up Tonio Wharton MD Allergies As of Date: 11/13/2023 (No Known Allergies) Date Reviewed: 11/13/2023 Reviewed by: Linda Gamboa MA - Fully Assessed Reason for Visit: Mouth/Lip Problem [68] Cmt: Sore roof of mouth, GARCIA x1 day Primary Visit Diagnosis:Oral ulceration [K12.1] Other Visit Diagnosis:Sore throat [J02.9] Order(s):STREP A MOLECULAR (POC) [[id number]] Order #: [id number]. #:[id number] Prescriptions as of 11/13/2023 - hydrOXYzine HCl (ATARAX) 25 mg tablet take 1 tablet by mouth at bedtime and 1 tablet by mouth once kyle... (REFER TO PRESCRIPTION NOTES). - escitalopram oxalate (LEXAPRO) 10 mg tablet Take 1 tablet by mouth every afternoon. - escitalopram oxalate (LEXAPRO) 5 mg tablet Take 1 tablet by mouth every afternoon. - fluticasone (FLONASE) 50 mcg/actuation nasal spray Use 2 Sprays in each nostril once daily. Rinse mouth after use. - guaiFENesin (MUCINEX) 600 mg 12 hr tablet Take 2 tablets by mouth twice daily. Problem List As Of Date: 11/13/2023 (None) Medications Discontinued During This Encounter Prescriptions - benzonatate (TESSALON PERLE) 100 mg capsule (Discontinued) Reported on 11/13/2023 - clindamycin (CLEOCIN) 300 mg capsule (Discontinued) Reported on 08/30/2022 - LORATADINE 10 MG TAB (Discontinued) Reported on 08/30/2022 - medroxyPROGESTERone (DEPO-PROVERA) 150 mg/mL injection (Discontinued) Reported on 11/13/2023 - naproxen (NAPROSYN) 500 mg tablet (Discontinued) Reported on 08/30/2022 Level of Service: OFFICE/OUTPATIENT ESTABLISHED LOW MDM 20 MIN [99987] Encounter Status:Closed by TONIO WHARTON on 11/13/23 Normal [facility] STREP A MOLECULAR (POC)on Procedural Control Valid [facility] Strep A (POCT) Negative Negative [facility] STREP A MOLECULAR (POC)on Procedural Control Valid [facility] Strep A (POCT) Negative Negative [facility] UA DIP, URINE (POC)on 2021 BILIRUBIN UA (POCT) Small Abnormal Negative [facility] [place] CLARITY UA (POCT) Clear [facility] COLOR UA (POCT) [place] [facility] GLUCOSE UA (POCT) 100 mg/dL Abnormal Negative mg/dL [facility] HEMOGLOBIN/BLOOD UA (POCT) Large Abnormal Negative [facility] KETONE UA (POCT) Trace Negative mg/dL [facility] LEUKOCYTES UA (POCT) Small Abnormal Negative [facility] NITRITE UA (POCT) Positive Abnormal Negative [facility] PH UA (POCT) 5.0 4.5 - 8.0 [facility] Protein Ql (U) 100 mg/dL Abnormal Negative mg/dL [facility] SPECIFIC GRAVITY UA (POCT) 1.025 1.005 - 1.030 [facility] UROBILINOGEN UA (POCT) 2.0 E.U./dL Abnormal Normal E.U./dL [facility] PAP IG HPV APTIMA 16/18,45on 09-11-2021 ADEQ Comment Normal . [facility] Comment on above: Order Comment: CYTOL OGY INFORMATION:- CLINICAL INFORMATION: ANNUAL - Non - DATE LMP/MENOPAUSE: DEPO/PROVERA N/A- COLLECTION VIAL: Thin Prep Vial- DIRECTOR OF IT OPERATIONS SOURCE: CERVICAL/ENDOCERVICAL- COLLECTION TECHNIQUE: BRUSH/SPATULASpecimen Comment: [id number] Comment: No. of containers..01 ThinPrep Vial Result Comment: Sati sfactory for evaluation. Endocervical and/or squamous metaplastic cells (endocervical component) are present. Performed By: #### L 7000.1800, L7400.0280 ####[facility] [address] [place], [place], [phone] COMMENT Comment Normal . [facility] Comment on above: Order Comment: CYTOL OGY INFORMATION:- CLINICAL INFORMATION: ANNUAL - Non - DATE LMP/MENOPAUSE: DEPO/PROVERA N/A- COLLECTION VIAL: Thin Prep Vial- DIRECTOR OF IT OPERATIONS SOURCE: CERVICAL/ENDOCERVICAL- COLLECTION TECHNIQUE: BRUSH/SPATULASpecimen Comment: [id number] Comment: No. of containers..01 ThinPrep Vial Result Comment: This liquid based ThinPrep(R) pap test was screened with the use of an image guided system. Performed By: #### L 7000.1800, L7400.0280 ####[facility] [address] [place], [place], [address] DIAG Comment Abnormal . [facility] Comment on above: Order Comment: CYTOL OGY INFORMATION:- CLINICAL INFORMATION: ANNUAL - Non - DATE LMP/MENOPAUSE: DEPO/PROVERA N/A- COLLECTION VIAL: Thin Prep Vial- DIRECTOR OF IT OPERATIONS SOURCE: CERVICAL/ENDOCERVICAL- COLLECTION TECHNIQUE: BRUSH/SPATULASpecimen Comment: [id number] Comment: No. of containers..01 ThinPrep Vial Result Comment: EPIT HELIAL CELL ABNORMALITY. ATYPICAL SQUAMOUS CELLS OF UNDETERMINED SIGNIFICANCE (ASC-US). Performed By: #### L 7000.1800, L7400.0280 ####[facility] [address] [place], [address] HPV APTIMA, HR Negative Normal Negative [facility] Comment on above: Order Comment: CYTOL OGY INFORMATION:- CLINICAL INFORMATION: ANNUAL - Non - DATE LMP/MENOPAUSE: DEPO/PROVERA N/A- COLLECTION VIAL: Thin Prep Vial- DIRECTOR OF IT OPERATIONS SOURCE: CERVICAL/ENDOCERVICAL- COLLECTION TECHNIQUE: BRUSH/SPATULASpecimen Comment: [id number] Comment: No. of containers..01 ThinPrep Vial Result Comment: This nucleic acid amplification test detects fourteen high- risk HPV types (16,18,31,33,35,39,45,51,52,56,58,59,66,68) without differentiation. Performed at: [address] [id number] Budget Examiner: Whitley Barreto MD, Phone: [phone] Performed at: =[address] [id number] Budget Examiner: Whitley Barreto MD, Phone: [phone] Performed By: #### L 7000.1800, L7400.0280 ####[facility] [address] [place], [address] PAPSMR Comment Normal . [facility] Comment on above: Order Comment: CYTOL OGY INFORMATION:- CLINICAL INFORMATION: ANNUAL - Non - DATE LMP/MENOPAUSE: DEPO/PROVERA N/A- COLLECTION VIAL: Thin Prep Vial- DIRECTOR OF IT OPERATIONS SOURCE: CERVICAL/ENDOCERVICAL- COLLECTION TECHNIQUE: BRUSH/SPATULASpecimen Comment: [id number] Comment: No. of containers..01 ThinPrep Vial Result Comment: The Pap smear is a screening test designed to aid in the detection of premalignant and malignant conditions of the uterine cervix. It is not a diagnostic procedure and should not be used as the sole means of detecting cervical cancer. Both false-positive and false-negative reports do occur. Performed By: #### L 7000.1800, L7400.0280 ####[facility] [address] [place], [address] Path.prov.IDC-9 Comment Normal . [facility] Comment on above: Order Comment: CYTOL OGY INFORMATION:- CLINICAL INFORMATION: ANNUAL - Non - DATE LMP/MENOPAUSE: DEPO/PROVERA N/A- COLLECTION VIAL: Thin Prep Vial- DIRECTOR OF IT OPERATIONS SOURCE: CERVICAL/ENDOCERVICAL- COLLECTION TECHNIQUE: BRUSH/SPATULASpecimen Comment: [id number] Comment: No. of containers..01 ThinPrep Vial Result Comment: [id number] Performed By: #### L 7000.1800, L7400.0280 ####[facility] [address] [place], [address] PERFORM Comment Normal . [facility] Comment on above: Order Comment: CYTOL OGY INFORMATION:- CLINICAL INFORMATION: ANNUAL - Non - DATE LMP/MENOPAUSE: DEPO/PROVERA N/A- COLLECTION VIAL: Thin Prep Vial- DIRECTOR OF IT OPERATIONS SOURCE: CERVICAL/ENDOCERVICAL- COLLECTION TECHNIQUE: BRUSH/SPATULASpecimen Comment: [id number] Comment: No. of containers..01 ThinPrep Vial Result Comment: Yi Arroyo, Chief Creative Officer (ASCP) Performed By: #### L 7000.1800, L7400.0280 ####[facility] [address] [place], [place], [address] RECOMM Comment Abnormal . [facility] Comment on above: Order Comment: CYTOL OGY INFORMATION:- CLINICAL INFORMATION: ANNUAL - Non - DATE LMP/MENOPAUSE: DEPO/PROVERA N/A- COLLECTION VIAL: Thin Prep Vial- DIRECTOR OF IT OPERATIONS SOURCE: CERVICAL/ENDOCERVICAL- COLLECTION TECHNIQUE: BRUSH/SPATULASpecimen Comment: [id number] Comment: No. of containers..01 ThinPrep Vial Result Comment: Sugg est follow up as clinically appropriate. Performed By: #### L 7000.1800, L7400.0280 ####[facility] [address] [place], [place], [id number] SIGN Comment Normal . [facility] Comment on above: Order Comment: CYTOL OGY INFORMATION:- CLINICAL INFORMATION: ANNUAL - Non - DATE LMP/MENOPAUSE: DEPO/PROVERA N/A- COLLECTION VIAL: Thin Prep Vial- DIRECTOR OF IT OPERATIONS SOURCE: CERVICAL/ENDOCERVICAL- COLLECTION TECHNIQUE: BRUSH/SPATULASpecimen Comment: [id number] Comment: No. of containers..01 ThinPrep Vial Result Comment: Deloris Barreto MD, Pathologist Performed By: #### L 7000.1800, L7400.0280 ####[facility] [address] [place], [place], [id number] COMM . Normal . [facility] Comment on above: Order Comment: CYTOL OGY INFORMATION:- CLINICAL INFORMATION: ANNUAL - Non - DATE LMP/MENOPAUSE: DEPO/PROVERA N/A- COLLECTION VIAL: Thin Prep Vial- DIRECTOR OF IT OPERATIONS SOURCE: CERVICAL/ENDOCERVICAL- COLLECTION TECHNIQUE: BRUSH/SPATULASpecimen Comment: [id number] Comment: No. of containers..01 ThinPrep Vial Performed By: #### L 7000.1800, L7400.0280 ####[facility] [address] [facility] [place], [place], [address] Chlamydia/GC MACRIAL aptimaon GC BY NUC ACID Negative Normal Negative [facility] Comment on above: Result Comment: Perf ormed at: =G - [facility] [address] [id number] Budget Examiner: Whitley Barreto MD, Phone: [phone] Performed By: #### L 7000.1800, L7400.0280 ####[facility] [address] [facility] [place], [place], [address] CHLAMY,NUC ACID Negative Normal Negative [facility] Comment on above: Performed By: #### L 7000.1800, L7400.0280 ####[facility] [address] [facility] [place], [place], [address] Chlamydia trachomatis rRNA d etection by probe and target amplification methodon 09-06-2021 C. trachomatis rRNA MARCIAL+probe Ql (Unsp spec) Negative Negative [facility] Work Phone: Laboratory - Microbiology an d Antimicrobial susceptibilityon 09-06-2021 N. gonorrhoeae DNA MARCIAL+probe Ql (Unsp spec) Negative Negative [facility] Work Phone: Comment on above: Performed at: =G - L [facility] [address] [id number] Director: Whitley Barreto MD, Phone: [phone] Abdomen/Pelvis without Conto n 04-23-2021 Abdomen/Pelvis without Cont [facility] [address] [place] [address] Abdomen/Pelvis without Cont MR#: [id number] Acct: [id number] Name: BELLA LORENZANA GABRIELLA Rep #: [id number] : 1990 F 30 From: Jeff Gonzalez MD PCP: Care Physician,No Primary Status: REG ER Study: Abdomen/Pelvis without Cont Date of Exam: 09/06 Exam# [id number] Ordering Dr: Babs Tellez EXAM: CT ABDOMEN AND PELVIS WITHOUT INTRAVENOUS CONTRAST : 1990 CLINICAL INDICATION: Pain TECHNIQUE: Helically acquired images were obtained of the abdomen and pelvis without intravenous contrast. This CT exam was performed using one or more of the following dose reduction techniques: automated exposure control, adjustment of the mA and/or kV according to patient size, and/or use of iterative reconstruction technique. This report was created using [employer] report Clean Plates technology. COMPARISON: No prior studies are available for comparison. FINDINGS: LOWER THORAX: Unremarkable. Lung bases are clear. No cardiomegaly. No significant pericardial effusion. ABDOMEN: LIVER: Unremarkable. Homogeneous. GALLBLADDER AND BILE DUCTS: Unremarkable. No calcified gallstones. No gallbladder distention or wall edema. No intra- or extrahepatic biliary ductal dilation. PANCREAS: Unremarkable. No focal cystic mass. SPLEEN: Unremarkable. Normal size without focal cystic or solid mass. ADRENALS: Unremarkable. No nodules. KIDNEYS AND URETERS: 3 mm stone noted within the lower pole of the left kidney. No hydronephrosis. STOMACH AND BOWEL: Mild fluid distention of the distal ileum and proximal colon may represent ileus. No focal inflammatory change. PELVIS: APPENDIX: Appendix is visualised and normal in appearance. BLADDER: Unremarkable. REPRODUCTIVE: Unremarkable as visualized. No mass. ABDOMEN and PELVIS: INTRAPERITONEAL SPACE: 3 cm right adnexal heterogeneous density lesion suggestive of a hemorrhagic ovarian cyst. Small amount of free fluid is present within the cul-de-sac. No free air. BONES/JOINTS: Unremarkable. No suspicious lytic or blastic abnormality. SOFT TISSUES: Unremarkable. No discrete abdominal or pelvic wall hernia. VASCULATURE: Unremarkable. Abdominal aorta is non-dilated. LYMPH NODES: Unremarkable. No enlarged lymph nodes. CT/Abdomen/Pelvis without Cont IMPRESSION: 1. 3 cm right ovarian hemorrhagic cyst associated with small amount of free fluid within the pelvis. 2. Nonobstructive 3 mm left renal stone. Individualized dose optimization techniques were used for this CT. at 1634 Reported and signed by: Jeff Gonzalez MD Electronically Signed: Jeff Gonzalez MD at 16:33 EST , CC: JOSE CARLOS Tellez; No Primary Care Physician Pcb Design Engineer: Signed Normal [facility] CBC W/Diff, Automatedon 02-0 -2021 Absolute Lymph 2.27 X10 3/uL Normal 0.83-4.51 [facility] Comment on above: Performed By: #### L 100.0100, L500.4050, L501.2450 #### [facility] [address] [place], [address] Absolute Neut 6.0 X10 3/uL Normal 2.0-7.7 [facility] Comment on above: Performed By: #### L 100.0100, L500.4050, L501.2450 #### [facility] [address] [place], [address] Basophils/100 WBC (Bld) 0.5 % Normal 0-1 [facility] Comment on above: Performed By: #### L 100.0100, L500.4050, L501.2450 #### [facility] [address] [place], [address] Eosinophils/100 WBC (Bld) 0.9 % Normal 0-5 [facility] Comment on above: Performed By: #### L 100.0100, L500.4050, L501.2450 #### [facility] [address] [place], [address] Erythrocyte distribution width (RBC) [Ratio] 13.5 % Normal 11.6-14.6 [facility] Comment on above: Performed By: #### L 100.0100, L500.4050, L501.2450 #### [facility] [address] [place], [address] Hematocrit (Bld) [Volume fraction] 36.0 % Low 37-47 [facility] Comment on above: Performed By: #### L 100.0100, L500.4050, L501.2450 #### [facility] [address] [place], [address] Hemoglobin (Bld) [Mass/Vol] 11.7 g/dL Low 12.0-15.0 [facility] Comment on above: Performed By: #### L 100.0100, L500.4050, L501.2450 #### [facility] [address] [place], [address] IG% 0.200 Normal 0.0-0.9 [facility] Comment on above: Result Comment: IG% - Immature Granulocytes (promyelocytes, myelocytes and metamyelocytes) > 1% indicates that a LEFT SHIFT is Present. Performed By: #### L 100.0100, L500.4050, L501.2450 #### [facility] [address] [place], [address] Lymphocytes/100 WBC (Bld) 24.5 % Normal 19-41 [facility] Comment on above: Performed By: #### L 100.0100, L500.4050, L501.2450 #### [facility] [address] [place], [address] MCH (RBC) [Entitic mass] 30.2 pg Normal 27.0-32.0 [facility] Comment on above: Performed By: #### L 100.0100, L500.4050, L501.2450 #### [facility] [address] [place], [address] MCHC (RBC) [Mass/Vol] 32.5 g/dL Normal 32-36 [facility] Comment on above: Performed By: #### L 100.0100, L500.4050, L501.2450 #### [facility] [address] [place], [address] MCV (RBC) [Entitic vol] 93.0 fL Normal 81-99 [facility] Comment on above: Performed By: #### L 100.0100, L500.4050, L501.2450 #### [facility] [address] [place], [address] Monocytes/100 WBC (Bld) 9.0 % Normal 0-10 [facility] Comment on above: Performed By: #### L 100.0100, L500.4050, L501.2450 #### [facility] [address] [place], [address] Neutrophils/100 WBC (Bld) 64.9 % Normal 47-70 [facility] Comment on above: Performed By: #### L 100.0100, L500.4050, L501.2450 #### [facility] [address] [place], [address] Nucleated RBC (Bld) [#/Vol] 0 10*3/uL Normal 0-5 [facility] Comment on above: Performed By: #### L 100.0100, L500.4050, L501.2450 #### [facility] [address] [place], [address] Platelet mean volume (Bld) [Entitic vol] 11.2 fL Normal 6.2-12.0 [facility] Comment on above: Performed By: #### L 100.0100, L500.4050, L501.2450 #### [facility] [address] [place], [address] Platelets (Bld) [#/Vol] 244 10*3/uL Normal 150-450 [facility] Comment on above: Performed By: #### L 100.0100, L500.4050, L501.2450 #### [facility] [address] [place], [address] RBC (Bld) [#/Vol] 3.87 10*6/uL Low 4.2-5.4 [facility] Comment on above: Performed By: #### L 100.0100, L500.4050, L501.2450 #### [facility] [address] [place], [address] RDW SD 45.9 fl High 35.1-43.9 [facility] Comment on above: Performed By: #### L 100.0100, L500.4050, L501.2450 #### [facility] [address] [place], [address] WBC (Bld) [#/Vol] 9.3 10*3/uL Normal 4.4-11.0 [facility] Comment on above: Performed By: #### L 100.0100, L500.4050, L501.2450 #### [facility] [address] [place], [address] Comprehensive Metabolic Prof ilon 04-23-2021 Albumin [Mass/Vol] 4.3 g/dL Normal 3.2-5.0 [facility] Comment on above: Performed By: #### L 100.0100, L500.4050, L501.2450 #### [facility] [address] [place], [address] Albumin/Globulin [Mass ratio] 1.3 {ratio} Normal 0.9-2.4 [facility] Comment on above: Performed By: #### L 100.0100, L500.4050, L501.2450 #### [facility] [address] [place], [address] ALK P 56 U/L Normal 45-117 [facility] Comment on above: Performed By: #### L 100.0100, L500.4050, L501.2450 #### [facility] [address] [place], [address] ALT [Catalytic activity/Vol] 15 U/L Normal 13-56 [facility] Comment on above: Performed By: #### L 100.0100, L500.4050, L501.2450 #### [facility] [address] [place], [address] AST [Catalytic activity/Vol] 18 U/L Normal 15-37 [facility] Comment on above: Performed By: #### L 100.0100, L500.4050, L501.2450 #### [facility] [address] [place], [address] Bilirubin [Mass/Vol] 0.40 mg/dL Normal 0.20-1.00 [facility] Comment on above: Result Comment: For patients on eltrombopag therapy, use of Dimension [place] TBIL is not recommended. Performed By: #### L 100.0100, L500.4050, L501.2450 #### [facility] [address] [place], [address] BUN/CRE 17.1 RATIO Normal 10-20 [facility] Comment on above: Performed By: #### L 100.0100, L500.4050, L501.2450 #### [facility] [address] [place], [address] CA,Total 8.9 mg/dL Normal 8.5-10.1 [facility] Comment on above: Performed By: #### L 100.0100, L500.4050, L501.2450 #### [facility] [address] [place], [address] Chloride [Moles/Vol] 109 mmol/L High 98-107 [facility] Comment on above: Performed By: #### L 100.0100, L500.4050, L501.2450 #### [facility] [address] [place], [address] CO2 [Moles/Vol] 22.0 mmol/L Normal 21.0-32.0 [facility] Comment on above: Performed By: #### L 100.0100, L500.4050, L501.2450 #### [facility] [address] [place], [address] Creatinine [Mass/Vol] 0.70 mg/dL Normal 0.55-1.02 [facility] Comment on above: Result Comment: The validity of the calculated GFR GFRAA in patients over 70 years has not been determined. Clinical correlation is essential. Performed By: #### L 100.0100, L500.4050, L501.2450 #### [facility] [address] [place], [address] ECRCL 80.14 ml/min Normal [facility] Comment on above: Performed By: #### L 100.0100, L500.4050, L501.2450 #### [facility] [address] [place], [address] EST GFR - AA 123 mL/min Normal >60 [facility] Comment on above: Result Comment: Afri can Angolan GFR Calc Performed By: #### L 100.0100, L500.4050, L501.2450 #### [facility] [address] [place], [address] GAP 8 Normal 5-15 [facility] Comment on above: Performed By: #### L 100.0100, L500.4050, L501.2450 #### [facility] [address] [place], [address] GFR/1.73 sq M.predicted among non-blacks MDRD (S/P/Bld) [Vol rate/Area] 102 mL/min/{1.73_m2} Normal >60 [facility] Comment on above: Result Comment: Non- GFR Calc Performed By: #### L 100.0100, L500.4050, L501.2450 #### [facility] [address] [place], [address] Globulin (S) [Mass/Vol] 3.4 g/dL Normal 2.2-4.2 [facility] Comment on above: Performed By: #### L 100.0100, L500.4050, L501.2450 #### [facility] [address] [place], [address] Glucose [Mass/Vol] 109 mg/dL High 74-106 [facility] Comment on above: Result Comment: Fast ing Glucose result from 100 to 125 mg/dL suggests IMPAIRED HOMEOSTASIS per A.D.A. criteria. Performed By: #### L 100.0100, L500.4050, L501.2450 #### [facility] [address] [place], [address] Potassium [Moles/Vol] 3.5 mmol/L Normal 3.5-5.1 [facility] Comment on above: Performed By: #### L 100.0100, L500.4050, L501.2450 #### [facility] [address] [place], [address] Sodium [Moles/Vol] 139 mmol/L Normal 136-145 [facility] Comment on above: Performed By: #### L 100.0100, L500.4050, L501.2450 #### [facility] [address] [place], [address] T PROT 7.7 g/dL Normal 6.4-8.2 [facility] Comment on above: Performed By: #### L 100.0100, L500.4050, L501.2450 #### [facility] [address] [place], [address] Urea nitrogen [Mass/Vol] 12 mg/dL Normal 7-18 [facility] Comment on above: Performed By: #### L 100.0100, L500.4050, L501.2450 #### [facility] [address] [place], [address] Emergency Department Summary on 04-23-2021 Emergency Department Summary [facility] Medical Records Department [address] [place] [address] Emergency Department Summary 04/23/21 MR#: [id number] Acct: [id number] Name: BELLA LORENZANA Rep #: [id number] : 1990 30 From: Babs BRANCH PCP: Care Physician,No Primary Status:DEP ER Location: ED HPI History of Present Illness Chief Complaint: Abd Pain Narrative Narrative: 30-year-old female with PMH of tubal ligation, ovarian cysts presents with abdominal pain. Over the last few days she has had diffuse abdominal pain worse in her lower pelvic region and epigastric regions. Yesterday she started her menstrual cycle and today had intercourse which caused worsening pain and heavier bleeding. She denies fever, chills, nausea, vomiting, or urinary or bowel changes. No recent vaginal discharge. She states she drinks alcohol on the weekends and yesterday had 2 beers and 1 shot. PFSH [facility] Medical History (Updated 04/23/21 @ 16:51 by JOSE CARLOS Coffman) Hx of ovarian cyst Home Medications naproxen 500 mg PO BID PRN #20 tab 04/23/21 [Rx Last Taken Unknown] ondansetron 4 mg PO Q8H PRN PRN #10 tab 04/23/21 [Rx Last Taken Unknown] oxycodone-acetaminophe n [Percocet] 1 tab PO Q6H PRN 3 Days #12 tab 04/23/21 [Rx Last Taken Unknown] Allergy/AdvReac Type Severity Reaction Status Date / Time No Known Allergies Allergy Verified 04/23/21 12:46 Surgical History H/O tubal ligation Social History Smoking Status: Current every day smoker tobacco type: cigarettes ROS ROS ED ROS Narrative Constitutional: Negative for fever, chills, malaise. Eyes: Negative for visual change. ENT: Negative for sore throat, ear pain, rhinorrhea. CVS: Negative for palpitations, chest pain, syncope. Respiratory: Negative for shortness of breath, cough, orthopnea. GI: Positive for abdominal pain. Negative for nausea, vomiting, diarrhea, constipation, melena, hematochezia. : Negative for dysuria, hematuria or frequency. Neuro: Negative for headache, motor/sensory dysfunction. Skin: Negative for rash, abscess, or wound. Heme: Negative for easy bruising, bleeding, lymphadenopathy. EXAM Physical Exam Narrative Exam Narrative: CONST: Patient sitting in no acute distress. EYES: Normal inspection. NECK: Normal inspection. RESP: No respiratory distress, CTAB. CVS: Regular rate and rhythm, no murmur, no gallop. ABD: Soft with diffuse tenderness worse in bilateral lower quadrants, no guarding or rebound, nondistended, no hepatosplenomegaly. Back: Normal inspection, no CVA tenderness. : Normal external genitalia, moderate amount of dark red blood in the vaginal vault with no evidence of laceration or tear, normal-appearing cervix. SKIN: Color normal, no rash, warm, dry, intact. EXTREMITIES: Normal appearance, no pedal edema. NEURO: Oriented x4. PSYCH: Normal affect. Const Vital Signs: 04/23/21 12:43 Temperature 97.9 F Temperature Source Oral Pulse Rate 86 Respiratory Rate 16 Blood Pressure 113/79 Blood Pressure Mean 90 Pulse Ox 98 Oxygen Delivery Method Room Air Physical Exam Const Vital Signs: 04/23/21 12:43 Temperature 97.9 F Temperature Source Oral Pulse Rate 86 Respiratory Rate 16 Blood Pressure 113/79 Blood Pressure Mean 90 Pulse Ox 98 Oxygen Delivery Method Room Air MDM MDM MDM Narrative Medical decision making narrative: Patient presented with abdominal pain. She appears well nontoxic. Vital signs are within normal limits. She has diffuse abdominal tenderness with no peritoneal signs. Pelvic exam showed normal-appearing cervix with blood in the vaginal vault but no evidence of tears or lacerations. This is consistent with her being on her menstrual cycle and there is no other abnormality. Basic labs obtained and are unremarkable. Urine has blood but no infection. test is negative. CT shows 3 cm right hemorrhagic ovarian cyst. She had improvement after analgesia and is comfortable going home and I prescribed Percocet and Zofran. I advised she follow-up with her [facility] and return for new or worsening symptoms. Diagnoses 1. Abdominal pain 2. Right hemorrhagic ovarian cyst Lab Data Labs: Laboratory Results - last 24 hr 04/23/21 04/23/21 04/23/21 12:55 12:55 14:38 WBC 9.3 RBC 3.87 L Hgb 11.7 L Hct 36.0 L MCV 93.0 MCH 30.2 MCHC 32.5 RDW Std Deviation 45.9 H RDW Coeff of Gi 13.5 Plt Count 244 MPV 11.2 Immature Gran % (Auto) 0.200 Neut % (Auto) 64.9 Lymph % (Auto) 24.5 Blaine % (Auto) 9.0 Eos % (Auto) 0.9 Baso % (Auto) 0.5 Absolute Neuts (auto) 6.0 Absolute Lymphs (auto) 2.27 Nucleated RBC % 0 Sod (more content not included)... Normal [facility] Lipaseon 04-23-2021 Lipase [Catalytic activity/Vol] 69 U/L Low 73-393 [facility] Comment on above: Performed By: #### L 100.0100, L500.4050, L501.2450 #### [facility] [address] [place], [address] ,Urineon 04-23-2021 Beta HCG ( test) Ql (U) Negative Normal [facility] Comment on above: Order Comment: BELIA SANCHEZ TO SPECIFY Result Comment: Very dilute urine specimens, as indicated by a low specific gravity, may not contain quality control representative levels of hCG. If is still suspected, a first morning urine specimen should be collected 48 hours later and tested. Performed By: #### L 400.0001, L400.7600 #### [facility] [address] [place], [address] Urinalysis, Completeon 04-23 EPI,SQUAMOUS 0-5 SEEN Normal 5-10 [facility] Comment on above: Order Comment: BELIA CTOR TO SPECIFY Performed By: #### L 400.0001, L400.7600 #### [facility] [address] [place], [address] Mucus Ql (Urine sed) 1+ /hpf Normal [facility] Comment on above: Order Comment: BELIA CTOR TO SPECIFY Performed By: #### L 400.0001, L400.7600 #### [facility] [address] [place], [address] RBC > 100 SEEN Normal 0-5 [facility] Comment on above: Order Comment: BELIA CTOR TO SPECIFY Performed By: #### L 400.0001, L400.7600 #### [facility] [address] [place], [address] BACTERIA 0 SEEN Normal None Seen [facility] Comment on above: Order Comment: BELIA CTOR TO SPECIFY Performed By: #### L 400.0001, L400.7600 #### [facility] [address] [place], [address] WBC 0 SEEN Normal 0-5 [facility] Comment on above: Order Comment: BELIA CTOR TO SPECIFY Performed By: #### L 400.0001, L400.7600 #### [facility] [address] [place], [address] COVID 19, MARCIAL WCH(RT COLLECT )on 12-23-2020 SARS-CoV-2 (COVID-19) RNA MARCIAL+probe Ql (Unsp spec) Negative Normal Not Detect [facility] Comment on above: Result Comment: For use under the Emergency Use Authorization (EUA) only. The [employer] Xpert Xpress SARS-CoV-2 test is a molecular diagnostic assay that aids in the detection and diagnosis SARS-CoV-2 which is based on widely used nucleic acid amplification technology that employs a rapid, real-time RT-PCR method intended for the qualitative detection of nucleic acid from the SARS-CoV-2 in upper respiratory specimens collected from individuals suspected of COVID-19. For in vitro diagnostic use. Negative results do not preclude SARS-CoV-2 infection and should not be used as the sole basis for treatment or other patient management decisions. Negative results must be combined with clinical observations, patient history, and epidemiological information. Performed By: #### L 3400.2405 #### [facility] [address] [place], [address] COVID 19 AG RAPID (RN COLLEC T)on 12-22-2020 SARS-CoV-2 (COVID-19) RNA MARCIAL+probe Ql (Unsp spec) *Negative results from patients with symptom onset beyond five days should be treated as presumptive and confirmed by a molecular assay if clinically necessary. Negative results should not be used as the sole basis for treatment or for patient management. COVID 19 AG RAPID (RN COLLECT) *Positive results do not differentiate between SARS-CoV and SARS-CoV-2. If differentation of the specific SARS virus is desired an additional sample and an additional order is required. COVID 19 AG RAPID (RN COLLECT) * This test has not been FDA cleared or approved; the test has been authorized by FDA under an Emergency Use Authorization (EAU) for use by laboratories certified under CLIA that meet the requirements to perform moderate, high, or waived complexity tests. COVID 19 AG RAPID (RN COLLECT) Normal Reference Range: Negative SARS-CoV-2 (COVID 19) Negative RAPID METHOD BinaxNow COVID19 Ag Card, lateral flow Normal [facility] Comment on above: Performed By: #### M 100.505 #### [facility] [address] [place], [place], [address] Emergency Department Summary on 12-22-2020 Emergency Department Summary [facility] Medical Records Department [address] [place] [address] Emergency Department Summary 12/22/20 MR#: [id number] Acct: [id number] Name: BELLA LORENZANA GABRIELLA Rep #: [id number] : 1990 30 From: Jah Kenny DO PCP: Care Physician,No Primary Status:DEP ER Location: ED HPI History of Present Illness Chief Complaint: General Illness Informant: patient Onset/Context/Timing Onset: Today Current Severity: Gone Narrative Narrative: Patient presents needing a Covid test so that she can return to work. Patient's son was seen here in the emergency department tonight and tested positive for Covid. Mother denies any symptoms for Covid. Mother states that her boss requires her to have a negative Covid test because of the close exposure to Covid. PFSH PFSH no medical history Home Medications mometasone 50 mcg/actuation nasal spray 2 spray INTRANASAL DAILY PRN #17 gm 06/14/20 [Rx Last Taken Unknown] Allergy/AdvReac Type Severity Reaction Status Date / Time No Known Allergies Allergy Verified 12/22/20 19:34 Surgical History H/O tubal ligation Social History Smoking Status: Current every day smoker tobacco type: cigarettes ROS ROS ED Constitutional Constitutional ED: Denies chills or fever(s) Eyes Eyes: Denies blurry vision or change in vision ENT ENT ED: Denies rhinorrhea or sore throat Cardiovascular Cardiovascular: Denies chest pain or palpitations Respiratory/Chest Respiratory/Chest: Denies cough or dyspnea Gastrointestinal Gastrointestinal: Denies nausea or vomiting Genitourinary Genitourinary ED: Denies dysuria or hematuria Musculoskeletal Musculoskeletal: Denies back pain or neck pain Integumentary Denies abscess or rash Neurologic Neurologic: Denies headache(s) or weakness Allergic/Immunologic Allergic/Immunologic ED: Denies mouth swelling or urticaria EXAM Physical Exam Const Vital Signs: 12/22/20 19:35 12/22/20 19:39 Temperature 99.3 F H Temperature Source Temporal Pulse Rate 65 Respiratory Rate 16 Respiratory Effort Normal Non-Labored Respiratory Pattern Normal Blood Pressure 90/56 L Blood Pressure Mean 67 Pulse Ox 97 Oxygen Delivery Method Room Air Positive well nourished and well developed General Appearance ED: well developed HEENT Reports moist mucous membranes Neck supple and no JVD Resp normal respiratory effort and clear to auscultation bilaterally Cardio regular rate and regular rhythm GI normal to inspection, nondistended, normoactive bowel sounds and non-tender Palpation: soft Extremity normal to inspection General Extremety ED: Negative for edema or tenderness General Extremity: Negative for edema Neuro oriented x3, CN's II-XII intact bilaterally and no sensory deficits noted Sensorium / Orientation: alert Motor Exam: strength 5/5 throughout Psych mental status grossly normal MDM MDM MDM Narrative Medical decision making narrative: COVID-19 rapid antigen was obtained and was negative. Patient stated that she told her boss this and he told her that she needed a PCR test. This was ordered. This will be a send out test. Patient was instructed to quarantine until her results come back. Patient was instructed to follow-up with her primary care physician in 5 to 7 days. Patient understood and was agreeable with the plan. All questions were answered. Discharge Plan Triage Chief Complaint: General Illness ED Provider: Jah Kenny Dx/Rx/DC Orders Clinical Impression: Close exposure to COVID-19 virus Instructions: Coronavirus Disease 2019 (COVID-19): Overview Prescriptions: No Action mometasone [Nasonex] 50 mcg/actuation spray,non-aerosol 2 spray INTRANASAL DAILY PRN (Reason: allergy symptoms) Qty: 17 RF: 0 Primary Care Provider: Care Physician,No Primary Referrals: Colby Dupree MD [NON-STAFF] - 5-7 Days Care Physician,No Primary [Primary Care Provider] - Disposition Disposition: Home, Self Care Discharge Date/Time: 12/22/20 21:09 What to do if you have Problems For any increased pain, shortness of breath, bleeding, nausea or vomiting, chest pain, or any unexpected problems, contact your Primary Care Provider. Call [facility] ([phone]) or report to the closest Emergency Room. Call 911 if necessary. 12/22/20 6800 Cosigner Signature (if applicable): CC: No Primary Care Physician Signed [facility] Progress Noteon 11-22-2016 [employer] Authentication Interface Message Text The total patient time of the visit was 30 minutes, of which greater than 50% of the time was spent counseling and coordinating care. [facility] [employer] Authentication Interface Message Text Met with patient and Partner Terell Underwood for arrhythmia Medical, surgical and family hx reviewedPsycho/Social risk:Support System: Terell Loo and extended familyFinancial Stressors: deniesFamily Dynamics: lives with Terell and 4 childrenBehavioral Health Issues: remote hx of depression. No issues with , nomedicationsWork History: currently unemployed Information on [facility] services given.Consent to share information with [facility] team, OB and occupational therapy director signed. Pt plans to deliver at [place] with [facility].Pediatric juan pablo is Dr Robert Mckay- [facility] & [facility] Male fetus- name is Lisy of feeding: breastUltrasound findings today: See report in procedures for details. echocardiogram with Dr. Madsen:Summary:Impressio n and recommendations.1.Smal l atrial septal aneurysm.2. Occasional PAC's and possible occasional sinus pauses were noted. 3.Otherwise normal echocardiogramPt will follow up in 1 month for reevaluation of growth and cardiac rhythm.Reinforced continued OB care with Bria Karimi total patient time of the visit was 10 minutes, of which greater than 50% ofthe time was spent counseling and coordinating care. Normal [facility] Union Laborer Authentication Interface Message Text Thank you for consulting us regarding this patient.I saw this patient in echocardiographic clinic on 11/22/2016Patient was referred to the echocardiographic clinic for a fetalechocardiogram since there was possible arrhythmia on OB ultrasound. AlsoSGA noted on OB ultrasound. Family history of congenital heart defect that is anolder child is followed in cardiology for a small VSD. 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 Atrioventricularand ventriculoarterial concordance seen.Atria:Normal left and right atrial size. There was a patent foramen ovale, omerinajf-eo-pots shunt.There was a small atrial septal aneurysm.Tricuspid valve:Normal tricuspid valve. There was normal Doppler across the tricuspid valve.Mitral valve:Normal mitral valve. There was normal Doppler across the mitral valve.Right ventricle:There was normal size and systolic function.Left ventricle:There was normal size and systolic function.Aortic valve:Normal aortic valve. There was normal Doppler across the aortic valve seen.Pulmonary valve:Normal pulmonary valve. There was normal Doppler across the pulmonary valveseen.Ventricular septum:There was no obvious ventricular septal defect seen.Main pulmonary artery:Normal main pulmonary artery.Pulmonary arteries:Good size branch pulmonary arteries.Pulmonary veins:There were at least 2/4 pulmonary veins seen entering into the left atrium.Systemic venous return:There was normal systemic venous return seen.Aortic arch:Patent aortic arch.Ductal arch:Patent Ductal arch.3-vessel view:There was normal 3-vessel view.Ductus venosus:There was normal flow pattern seen in the ductus venosus.Umbilical artery and umbilical vein.There was normal pulse Doppler in umbilical artery and umbilical vein.Rhythm:There appeared to be a sinus rhythm. HR 140's bpm. Occasional PAC's and possibleoccasional sinus pauses were noted.Impression and recommendations.1) There was a small atrial septal aneurysm. Occasional PAC's and possibleoccasional sinus pauses were noted. Otherwise normal echocardiogram.2) I have discussed the limitations of echocardiographic examination, thatis likely to miss small ventricular septal defects as well as mild semilunarvalve stenosis. Patent foramen ovale and patent ductus arteriosus are normalfindings in utero. Coarctation of aorta is difficult to diagnose pre natally inthe presence of patent ductus arteriosus.3) I have also discussed echocardiographic findings in detail includingfetal circulation, pathophysiology of Patent foramen ovale and Patent ductusarteriosus, and follow ups.4) I would like to see in cardiology clinic here at [facility], 1-2 moths after the or earlier if cardiac condition/statuschange s in any way.5) Family history of congenital heart defect that is an older child is followedin cardiology for a small VSD.Counseling and/or coordination of care was greater than 35 minutes which is morethan 50% of the total time of 60 minutes spent on the encounter. Normal [facility] Progress Noteon 11-21-2016 Union [employer]orer Authentication Interface Message Text History for appointment Normal [facility] Vital Signs Date Time Vital Sign Value Performing Clinician Facility 07-28-2024 08:52-0400 Body mass index (BMI) [Ratio] 18.61 kg/m2 [employer] Work Phone: [facility] 07-28-2024 08:52-0400 Body temperature 98.1 [degF] [employer] PA-LABOMAR Work Phone: [facility] 07-28-2024 08:52-0400 Body weight 48.4 kg [employer] PAWorkers On Call Work Phone: [facility] 07-28-2024 08:52-0400 Diastolic blood pressure 64 mm[Hg] [employer] Work Phone: [facility] 07-28-2024 08:52-0400 Heart rate 84 /min [employer] PA-C Work Phone: [facility] 07-28-2024 08:52-0400 Respiratory rate 16 /min Jaky Clutter PA-C Work Phone: [facility] 07-28-2024 08:52-0400 SaO2% (BldA) [Mass fraction] 97 % Jaky Clutter PA-C Work Phone: [facility] 07-28-2024 08:52-0400 Systolic blood pressure 102 mm[Hg] Jaky Clutter PA-C Work Phone: [facility] 01-11-2024 14:13-0400 Body mass index (BMI) [Ratio] 19.53 kg/m2 Ibrahima Athy PA-C Work Phone: [facility] 01-11-2024 14:13-0400 Body temperature 98.29 [degF] Ibrahima Athy PA-C Work Phone: [facility] 01-11-2024 14:13-0400 Body weight 50.8 kg Ibrahima Athy PA-C Work Phone: [facility] 01-11-2024 14:13-0400 Diastolic blood pressure 62 mm[Hg] Ibrahima Athy PA-C Work Phone: [facility] 01-11-2024 14:13-0400 Heart rate 85 /min Ibrahima Athy PA-C Work Phone: [facility] 01-11-2024 14:13-0400 Respiratory rate 20 /min Ibrahima Athy PA-C Work Phone: [facility] 01-11-2024 14:13-0400 SaO2% (BldA) [Mass fraction] 99 % Ibrahima Athy PA-C Work Phone: [facility] 01-11-2024 14:13-0400 Systolic blood pressure 99 mm[Hg] Ibrahima Athy PA-C Work Phone: [facility] 12-19-2023 20:24-0400 Diastolic Blood Pressure Non-Invasive 70 mm[Hg] ARIS GREEN DO [facility] 12-19-2023 20:24-0400 Heart rate 73 /min ARIS GARCIAThink GamingT [employer] [facility] 12-19-2023 20:24-0400 Respiratory rate 16 /min ARIS [employer]IAThink [employer] [facility] 12-19-2023 20:24-0400 Systolic Blood Pressure Non-Invasive 95 mm[Hg] ARIS GARCIAThink GamingT DO [facility] 12-19-2023 16:33-0400 Blood Pressure Location ARIS GARCIA[employer] [facility] 12-19-2023 16:33-0400 Blood Pressure Method ARIS [employer] [facility] 12-19-2023 16:33-0400 Body height 160 cm ARIS GARCIAThink [employer] [facility] 12-19-2023 16:33-0400 Body temperature 98.6 [degF] ARIS [employer] [facility] 12-19-2023 16:33-0400 Body weight 52.3 kg ARIS GARCIA[employer] [facility] 12-19-2023 16:33-0400 Diastolic Blood Pressure Non-Invasive 77 mm[Hg] ARIS [employer] [facility] 12-19-2023 16:33-0400 Heart rate 96 /min ARIS [employer] [facility] 12-19-2023 16:33-0400 Respiratory rate 16 /min ARIS [employer] [facility] 12-19-2023 16:33-0400 Systolic Blood Pressure Non-Invasive 118 mm[Hg] ARIS GREEN DO [facility] 11-13-2023 09:24-0400 Body temperature 98.4 [degF] Tonio Wharton MD Work Phone: [facility] 11-13-2023 09:24-0400 Body weight 52 kg Tonio Wharton MD Work Phone: [facility] 11-13-2023 09:24-0400 Diastolic blood pressure 68 mm[Hg] Tonio Wharton MD Work Phone: [facility] 11-13-2023 09:24-0400 Heart rate 79 /min Tonio Wharton MD Work Phone: [facility] 11-13-2023 09:24-0400 Respiratory rate 18 /min Tonio Wharton MD Work Phone: [facility] 11-13-2023 09:24-0400 SaO2% (BldA) [Mass fraction] 98 % Tonio Wharton MD Work Phone: [facility] 11-13-2023 09:24-0400 Systolic blood pressure 108 mm[Hg] Tonio Wharton MD Work Phone: [facility] 11-16-2022 14:49-0400 Body temperature 100.09 [degF] Sasha Jennifer ACETYLENE TORCH SOLDERER.[employer]SI[employer] COACH Work Phone: [facility] 11-16-2022 14:49-0400 Body weight 56.06 kg Sasha Jennifer ACETY[employer]E TORCH SOLDERER.ASSISTANT WOM[employer] COACH Work Phone: [facility] 11-16-2022 14:49-0400 Diastolic blood pressure 73 mm[Hg] Sasha Jennifer ACETY[employer]E TORCH SOLDERER.ASSISTANT WOMEN'S [employer] COACH Work Phone: [facility] 11-16-2022 14:49-0400 Heart rate 117 /min Sasha Jennifer ACETY[employer]E TORCH SOLDERER.ASSISTANT WOMEN'[employer] COACH Work Phone: [facility] 11-16-2022 14:49-0400 Respiratory rate 18 /min Sasha Jennifer ACETY[employer]E T[employer]CH SOLDERER.ASSISTANT WOMEN'[employer]ENN[employer] COACH Work Phone: [facility] 11-16-2022 14:49-0400 SaO2% (BldA) [Mass fraction] 99 % Sasha Rodriguez AC[employer]E T[employer]CH SOLDERER.ASSISTANT WOMEN'S [employer] COACH Work Phone: [facility] 11-16-2022 14:49-0400 Systolic blood pressure 120 mm[Hg] Sasha Rodriguez ACETY[employer]E TORCH SOLDERER.ASSISTANT WOMEN'S TENN[employer] COACH Work Phone: [facility] 08-30-2022 08:20-0400 Body temperature 97.39 [degF] Clifton Leatha ACETYLENE TORCH SOLDERER.ASSISTANT WOMEN'S TENN[employer] COACH Work Phone: [facility] 08-30-2022 08:20-0400 Body weight 53.52 kg Clifton Zhang ACETYLENE T[employer]CH SOLDERER.ASSISTANT WOMEN'S T[employer] COACH Work Phone: [facility] 08-30-2022 08:20-0400 Diastolic blood pressure 58 mm[Hg] Clifton Leatha ACETYLENE TORCH SOLDERER.ASSISTANT WOMEN'S TENN[employer] COACH Work Phone: [facility] 08-30-2022 08:20-0400 Heart rate 77 /min Clifton Leatha ACETYLENE TORCH SOLDERER.ASSISTANT WOMEN'S TENN[employer] COACH Work Phone: [facility] 08-30-2022 08:20-0400 Respiratory rate 18 /min Clifton Leatha ACETYLENE TORCH SOLDERER.ASSISTANT WOMEN'S TENN[employer] COACH Work Phone: [facility] 08-30-2022 08:20-0400 SaO2% (BldA) [Mass fraction] 98 % Clifton Zhang ACETYLENE TORCH SOLDERER.ASSISTANT WOMEN'S TENN[employer] COACH Work Phone: [facility] 08-30-2022 08:20-0400 Systolic blood pressure 102 mm[Hg] Clifton Zhang ACETYLENE TORCH SOLDERER.ASSISTANT WOMEN'S TENN[employer] COACH Work Phone: [facility] 02-15-2022 09:17-0500 Body temperature 99.19 [degF] Michelle Esqueda ACETYLENE TORCH SOLDERER.ASSISTANT WOMEN'S TENN[employer] COACH Work Phone: [facility] 02-15-2022 09:17-0500 Body weight 50.26 kg Michelle Esqueda ACETYLENE T[employer]CH SOLDERER.ASSISTANT WOMEN'S TENN[employer] COACH Work Phone: [facility] 02-15-2022 09:17-0500 Diastolic blood pressure 76 mm[Hg] Michelle Esqueda ACETYLENE TORCH SOLDERER.ASSISTANT WOMEN'S TENN[employer] COACH Work Phone: [facility] 02-15-2022 09:17-0500 Heart rate 110 /min Michelle Esqueda APRN.ASSISTANT WOMEN'S [employer] COACH Work Phone: [facility] 02-15-2022 09:17-0500 Respiratory rate 18 /min Michelle Esqueda APRN.ASSISTANT WOMEN'S [employer] COACH Work Phone: [facility] 02-15-2022 09:17-0500 SaO2% (BldA) [Mass fraction] 97 % Michelle Esqueda APRN.ASSISTANT WOMEN'S TENN[employer] COACH Work Phone: [facility] 02-15-2022 09:17-0500 Systolic blood pressure 124 mm[Hg] Michelle Esqueda APRN.ASSISTANT WOMEN'S [employer]ENN[employer] COACH Work Phone: [facility] 11-28-2021 17:52-0400 Body temperature 98.4 [degF] Ibrahima Athy PA-C Work Phone: [facility] 11-28-2021 17:52-0400 Body weight 48.53 kg Ibrahima Athy PA-C Work Phone: [facility] 11-28-2021 17:52-0400 Diastolic blood pressure 62 mm[Hg] Ibrahima Athy PA-C Work Phone: [facility] 11-28-2021 17:52-0400 Heart rate 84 /min Ibrahima Athy PA-C Work Phone: [facility] 11-28-2021 17:52-0400 Respiratory rate 16 /min Ibrahima Athy PA-C Work Phone: [facility] 11-28-2021 17:52-0400 SaO2% (BldA) [Mass fraction] 98 % Ibrahima Athy PA-C Work Phone: [facility] 11-28-2021 17:52-0400 Systolic blood pressure 110 mm[Hg] Ibrahima Athy PA-C Work Phone: [facility] Encounters Encounter Date Encounter Type Care Provider Facility Start: 07-29-2024 End: 07-29-2024 Follow-up encounter Jose J BRANCH Work Phone: [facility] Start: 07-28-2024 End: 07-28-2024 Office outpatient visit 25 minutes Jaky Tang PA-C Work Phone: [facility] Comment on above: Urinary frequency (P rimary Dx); Acute UTI; Acute URI Start: 07-28-2024 End: 07-28-2024 ambulatory JAKY TANG Facility:[facility] Start: 01-17-2024 End: 01-17-2024 Telephone encounter Jose J BRANCH Work Phone: [facility] Comment on above: requesting different medication Start: 01-12-2024 End: 01-12-2024 Orders Only Isabel Mendez APRN.CNP Work Phone: 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 Start: 12-19-2023 End: 12-19-2023 Emergency department patient visit ARIS GREEN DO [facility] Start: 11-13-2023 End: 11-13-2023 ambulatory JAKY LUNDBERGJOSE Facility:[facility] Start: 11-13-2023 End: 11-13-2023 Office outpatient visit 15 minutes Tonio Wharton MD Work Phone: [facility] Comment on above: Oral ulceration (Vivian sherie Dx); Sore throat Start: 01-22-2023 End: 01-22-2023 Emergency department patient visit WEI TRUONG DO Facility:[facility] Start: 11-16-2022 End: 11-16-2022 Patient encounter procedure Sasha Rodriguez AC[employer]E [employer]CH SOLDERER.ASSISTANT W[employer] COACH Work Phone: [facility] Comment on above: URI with cough and c ongestion (Primary Dx); Exposure to COVID-19 virus Start: 08-30-2022 Telephone encounter Michelle Esqueda APRN.ASSISTANT WOMEN'S TENN[employer] COACH Work Phone: [facility] Comment on above: Results Start: 08-30-2022 End: 08-30-2022 Office outpatient visit 15 minutes Clifton Leatha GUPTA.ASSISTANT WOMEN'S TENNIS COACH Work Phone: [facility] Comment on above: Viral illness (Prima ry Dx); Suspected COVID-19 virus infection Start: 08-04-2022 End: 08-04-2022 Emergency department patient visit DR JANNET MARCANO DO Facility:[facility] Start: 02-16-2022 Telephone encounter Michelle Esqueda APRN.ASSISTANT WOM[employer] COACH Work Phone: [facility] Comment on above: Patient Question Start: 02-15-2022 End: 02-15-2022 Patient encounter procedure Michelle Esqueda APRN.ASSISTANT WOM[employer]ACH Work Phone: [facility] Comment on above: Sore throat (Primary Dx); URI, acute Start: 11-28-2021 End: 11-28-2021 Patient encounter procedure Ibrahima Costello PA-C Work Phone: [facility] Comment on above: Acute UTI (Primary D x) Start: 09-06-2021 End: 09-06-2021 Patient encounter procedure [facility], Specimen Start: 11-22-2016 End: 11-22-2016 Ambulatory [facility] Start: 11-22-2016 End: 11-22-2016 Ambulatory [facility] Procedures Date Procedure Procedure Detail Performing Clinician Start: 07-28-2024 Urnls dip stick/tabl et rgnt auto w/o microscopy Isabel Mendez ACETYLENE TORCH SOLDERER.ASSISTANT WOMEN'S [employer]ENN[employer] COACH Work Phone: Start: 01-11-2024 Urnls dip stick/tabl et rgnt auto w/o microscopy Ibrahima Costello PA-C Work Phone: Start: 12-21-2023 Antibody screen LALIT ESPINOSA Comment on above: Order Comment: Speci men Type: BLOOD SPECIMENOrdering Facility: [facility] Address: [address] [place] [address] Performed By: #### T SCR ####[facility] [id number] [place] [address] [facility] Start: 11-13-2023 STREP A MOLECULAR (POC) [facility] Provider Start: 02-15-2022 STREP A MOLECULAR (POC) Michelle Esqueda ACETYLENE TORCH SOLDERER.ASSISTANT WOMEN'S TENN[employer] COACH Work Phone: Start: 11-28-2021 Urnls dip stick/tabl et rgnt auto w/o microscopy Sasha Rodriguez ACETYLENE TORCH SOLDERER.ASSISTANT WOMEN'S TENN[employer] COACH Work Phone: Adenoid excision Ginger BURNETT ZAIDA DO Laparoscopic oophorectomy Ginger BURNETT JOYARoseanne DO Ligation of fallopian tube Roseanne BURNETT JOYARoseanne DO Plan of Treatment Date Care Activity Detail Author Start: 01-22-2033 Urine microalbumin profile DTaP,Tdap,Td Vaccine (3 - Td or Tdap) [facility] Start: 11-16-2024 Influenza vaccination Influenz a Vaccine (Season Ended) [facility] Start: 11-17-2023 Covid-19 Vaccine ( season) Covid-19 Vaccine ( season) [facility] Start: 11-17-2023 Influenza vaccination Influenza Vacc ine (#1) [facility] Start: 11-16-2022 End: 11-30-2022 COVID & INFLUENZA A/B & RSV NAAT, ROUTINE [facility] Work Phone: Comment on above: Expected: 11/16/2022 , Expires: 11/30/2022 Start: 11-16-2022 Covid-19 Vaccine ( season) Covid-19 Vaccine ( season) [facility] Start: 11-16-2022 Influenza vaccination [facility] Start: 08-30-2022 End: 09-13-2022 Influenza virus A and B RNA and SARS-CoV-2 (COVID-19) N gene panel - Respiratory specimen by MARCIAL with probe detection COVID WITH FLUA+B, ROUTINE Microbiology Routine Viral illness Suspected COVID-19 virus infection Expected: 08/30/2022, Expires: 09/13/2022 [facility] Work Phone: Comment on above: Expected: 08/30/2022 , Expires: 09/13/2022 Start: 03-18-2022 DEPRESSION ASSESSMENT DEPRESSION ASS [facility] Start: 02-15-2022 End: 03-01-2022 Influenza virus A and B RNA and SARS-CoV-2 (COVID-19) N gene panel - Respiratory specimen by MARCIAL with probe detection COVID WITH FLUA+B, ROUTINE Microbiology Routine Sore throat URI, acute Expected: 02/15/2022, Expires: 03/01/2022 [facility] Work Phone: Comment on above: Expected: 02/15/2022 , Expires: 03/01/2022 Start: 11-16-2021 Influenza vaccination INFLUENZA (#1) [facility] Start: 03-18-2021 DEPRESSION ASSESSMENT DEPRESSION ASS ESSMENT [facility] Start: 2018 HPV TESTING HPV TESTING [facility] Start: 05-16-2010 PAP TESTING PAP TESTING [facility] Start: 2009 Screening for malign ant neoplasm of cervix Cervical Cancer Screening [facility] Start: 2007 Hepatitis B Vaccine (1 of 3 - 19+ 3-dose series) Hepatitis B Vaccine (1 of 3 - 19+ 3-dose series) [facility] Start: 2007 Pneumococcal vaccination Pneumococcal Vaccine (1 of 2 - PCV) [facility] Start: 2007 Urine microalbumin profile DTAP,TDAP,TD (1 - Tdap) [facility] Start: 2006 Anxiety Screening Anxiety Screening [facility] Start: 2006 Depression Screening Depression Scre ening [facility] Start: 2006 HEPATITIS C SCREENING HEPATITIS C [facility] Start: 2006 Hepatitis C screening Hepatitis C [facility] Start: 2006 HIV SCREENING HIV SCREENING [facility] Start: 2006 HIV screening HIV Screening [facility] Start: 2000 Adult depression screening assessment DEPRESSION SCREENING [facility] Start: 1994 PNEUMOCOCCAL (1 - PCV) PNEUMOCOCCAL (1 - PCV) [facility] Start: 1994 Pneumococcal vaccination Pneumococcal Vaccine (1 of 2 - PCV) [facility] Start: 1988 COVID-19 VACCINE (#1) COVID-19 VACCI NE (#1) [facility] Start: 1988 HEPATITIS B (1 of 3 - 3-dose series) HEPATITIS B (1 of 3 - 3-dose series) [facility] Bacteria identified in Urine by Culture URINE CULTURE Microbiology Routine Acute UTI 11/28/2021 6:17 PM EDT [facility] Work Phone: Bacteria identified in Urine by Culture URINE CULTURE Microbiology Routine Acute UTI Ordered: 01/11/2024 [facility] Work Phone: Comment on above: Ordered: 01/11/2024 Bacteria identified in Urine by Culture BACTERIAL CULTURE, URINE Microbiology Routine Urinary frequency Acute UTI Ordered: 07/28/2024 [facility] Work Phone: Comment on above: Ordered: 07/28/2024 BACTERIAL VAGINOSIS NAAT BACTERIAL VAGINOSIS NAAT Lab Routine Screening for STD (sexually transmitted disease) Ordered: 01/11/2024 [facility] Comment on above: Ordered: 01/11/2024 BRIAN/TRICHOMONAS NAAT BRIAN/TRICHOMONAS NAAT Lab Routine Screening for STD (sexually transmitted disease) Ordered: 01/11/2024 [facility] Comment on above: Ordered: 01/11/2024 Chlamydia trachomatis+Neisseria gonorrhoeae DNA [Presence] in Unspecified specimen by MARCIAL with probe detection GONORRHEA/CHLAMYDIA NAAT Lab Routine Screening for STD (sexually transmitted disease) Ordered: 01/11/2024 [facility] Comment on above: Ordered: 01/11/2024 Path report.final Dx Spec [facility] Work Phone: ROUTINE FLU A/B + RSV ROUTINE FL U A/B + RSV Lab Routine URI with cough and congestion 11/16/2022 3:12 PM EDT [facility] Work Phone: SARS-CoV-2 (COVID-19 ) RNA [Presence] in Respiratory specimen by MARCIAL with probe detection COVID NAAT, ROUTINE Microbiology Routine URI with cough and congestion 11/16/2022 3:12 PM EDT [facility] Work Phone: Immunizations Immunization Date Immunization Notes Care Provider Kayla vega 01-22-2023 tetanus toxoid, redu nanci diphtheria toxoid, and acellular pertussis vaccine, adsorbed ARIS RADHAMEÑO ADAM [facility] 06-29-2014 tetanus toxoid, redu nanci diphtheria toxoid, and acellular pertussis vaccine, adsorbed [facility] Work Phone: Payers Date Payer Category Payer Unknown [id number] 2016 Unknown [id number] 2005 Medicaid [id number] 1988 Unknown [id number] 1988 Unknown [id number] 1988 Unknown [id number] 1988 Unknown [id number] Self-pay SELF PAY INSURANCE [id number] Social History Date Type Detail Facility Start: [facility]21 [facility] Work Phone: Start: 01-27-2020 With Family Simon Sanchez [facility] Work Phone: Start: 1990 Sex Assigned At Female David layne [facility] Work Phone: Start: 11-28-2021 End: 11-13-2023 Tobacco smoking status NHIS Smokes tobacco daily [facility] History of tobacco use Cigarette Smoker [facility] Start: 11-28-2021 End: 12-21-2023 Cigarettes smoked current (pack per day) - Reported 0.5 [facility] Start: 11-28-2021 End: 11-13-2023 Tobacco use and exposure Smokeless tobacco non-user [facility] Start: 11-28-2021 End: 01-11-2024 Alcohol intake Current non-drinker of alcohol (finding) [facility] Start: 11-28-2021 Tobacco Comment smokes 3-4 ciggs [facility] Start: 1990 Sex Assigned At Not on file [facility] Start: 11-18-2021 End: 11-28-2021 Exposure to SARS-CoV-2 (event) Not sure [facility] Start: 02-05-2022 End: 02-15-2022 Exposure to SARS-CoV-2 (event) Yes [facility] Work Phone: Start: 11-16-2022 End: 12-21-2023 Tobacco use panel [facility] Start: 12-23-2023 Tobacco smoking status Light t obacco smoker (finding) [facility] 620 Sex Assigned At Sex [facility] National Score (1-10 0), lower number is lower risk 92 [facility] Functional Status Date Assessment Result Facility 12-19-2023 Functional Status Independent [facility] alejandro [facility] 12-19-2023 Functional Status ID band on, Call device within reach, Bed in low position, Wheels locked, Upper/Half-Length side-rails up, Safety level maintained [facility] Mental Status Date Assessment Result Facility 12-19-2023 Mental Status Orientation Oriented x 4 [facility] Clinical Notes 11-28-2021 to 07-29-2024 Telephone Encounter - Sharon Hopper LPN - 07/29/2024 2:41 PM EDTTelephone Encounter - Sharon Hopper LPN - 07/29/2024 2:41 PM EDTCJaky arriola PA-C - 07/28/2024 9:08 AM EDTPatient Instructions Note Date & Type Note Facility 07-29-2024 Telephone encounter Note Patient notified.Sharon Hopper LPN [facility] 07-29-2024 Miscellaneous Notes Patient notified.Sharon Hopper LPN Please contact patient let her know urine culture revealed mixed bacteria which may indicate contamination during collection. If antibiotic is helping, continue as prescribed. If symptoms are persistent, needs follow-up with PCP for repeat urine culture documented in this encounter [facility] 07-29-2024 Telephone encounter Note Please contact patient let her know urine culture revealed mixed bacteria which may indicate contamination during collection. If antibiotic is helping, continue as prescribed. If symptoms are persistent, needs follow-up with PCP for repeat urine culture [facility] Work Phone: 07-28-2024 Note HNO ID: [id number] Author: JAKY TANG PA-C Service: ? Author Type: Physician 2 Year Olds Preschool Teacher Type: Progress Notes Filed: 07/28/2024 09:14 Note Text: This note was created using [employer]. Subjective Bella Carlin is a 34 year old female. Patient is a 34-year-old female who complains of mild dysuria, urinary urgency and frequency that she has been experiencing for the past 3 days. Patient also reports mild throat irritation and nonproductive cough. Patient denies fever, chills, hematuria, flank pain, nausea or other symptoms. Patient does have a history of recurrent urinary tract infection and states that her current symptoms are consistent with same. Review of Systems HENT: Positive for sore throat. Respiratory: Positive for cough. Genitourinary: Positive for dysuria, frequency and urgency. All other systems reviewed and are negative. Objective BP 102/64 Pulse 84 Temp 36.7 ?C (98.1 ?F) Resp 16 Wt 48.4 kg (106 lb 11.2 oz) LMP 01/08/2024 (Exact Date) SpO2 97% BMI 18.61 kg/m? Physical Exam Vitals and nursing note reviewed. Constitutional: Appearance: Normal appearance. She is normal weight. HENT: Head: Normocephalic and atraumatic. Right Ear: Tympanic membrane, ear canal and external ear normal. Left Ear: Tympanic membrane, ear canal and external ear normal. Nose: Nose normal. Mouth/Throat: Mouth: Mucous membranes are moist. Pharynx: Oropharynx is clear. Eyes: Extraocular Movements: Extraocular movements intact. Conjunctiva/sclera: Conjunctivae normal. Pupils: Pupils are equal, round, and reactive to light. Cardiovascular: Rate and Rhythm: Normal rate and regular rhythm. Pulses: Normal pulses. Heart sounds: Normal heart sounds. Pulmonary: Effort: Pulmonary effort is normal. Breath sounds: Normal breath sounds. Musculoskeletal: Cervical back: Normal range of motion and neck supple. Skin: General: Skin is warm and dry. Capillary Refill: Capillary refill takes less than 2 seconds. Neurological: General: No focal deficit present. Mental Status: She is alert and oriented to person, place, and time. Psychiatric: Mood and Affect: Mood normal. Behavior: Behavior normal. Thought Content: Thought content normal. Judgment: Judgment normal. Assessment and Plan Physical exam findings as noted above. Urinalysis shows leukocyte esterase with moderate blood and urine culture was ordered. Patient was provided with prescriptions for Keflex 500 mg and Pyridium 100 mg. Patient states that she typically develops vaginal yeast infections with antibiotic use and she was provided with a prescription of Diflucan 150 mg. Patient was advised that results of the urine culture be available in 2 days and she will be contacted if there is a need to change her medication based on sensitivity report. Additional supportive care was discussed and the patient verbalizes clear understanding of same. CLINICAL IMPRESSION: Acute UTI; Acute URI ASSESSMENT/PLAN: 1. Urinary frequency - ICD9: 788.41, ICD10: R35.0 (primary diagnosis) - UA DIP, URINE (POC) - BACTERIAL CULTURE, URINE 2. Acute UTI - ICD9: 599.0, ICD10: N39.0 - BACTERIAL CULTURE, URINE - CEPHALEXIN 500 MG CAPSULE - PHENAZOPYRIDINE 100 MG TABLET - FLUCONAZOLE 150 MG TABLET 3. Acute URI - ICD9: 465.9, ICD10: J06.9 MDM Number of Diagnoses or Management Options Amount and/or Complexity of Data Reviewed Clinical lab tests: ordered and reviewed Risk of Complications, Morbidity, and/or Mortality Presenting problems: low Diagnostic procedures: low Management options: annamaria Tang PA-C [facility] 07-28-2024 History of Presen t illness Narrative This note was created using Tenebril. Subjective Bella Carlin is a 34 year old female. Patient is a 34-year-old female who complains of mild dysuria, urinary urgency and frequency that she has been experiencing for the past 3 days. Patient also reports mild throat irritation and nonproductive cough. Patient denies fever, chills, hematuria, flank pain, nausea or other symptoms. Patient does have a history of recurrent urinary tract infection and states that her current symptoms are consistent with same. Review of Systems HENT: Positive for sore throat. Respiratory: Positive for cough. Genitourinary: Positive for dysuria, frequency and urgency. All other systems reviewed and are negative. Objective BP 102/64 Pulse 84 Temp 36.7 C (98.1 F) Resp 16 Wt 48.4 kg (106 lb 11.2 oz) LMP 01/08/2024 (Exact Date) SpO2 97% BMI 18.61 kg/m Physical Exam Vitals and nursing note reviewed. Constitutional: Appearance: Normal appearance. She is normal weight. HENT: Head: Normocephalic and atraumatic. Right Ear: Tympanic membrane, ear canal and external ear normal. Left Ear: Tympanic membrane, ear canal and external ear normal. Nose: Nose normal. Mouth/Throat: Mouth: Mucous membranes are moist. Pharynx: Oropharynx is clear. Eyes: Extraocular Movements: Extraocular movements intact. Conjunctiva/sclera: Conjunctivae normal. Pupils: Pupils are equal, round, and reactive to light. Cardiovascular: Rate and Rhythm: Normal rate and regular rhythm. Pulses: Normal pulses. Heart sounds: Normal heart sounds. Pulmonary: Effort: Pulmonary effort is normal. Breath sounds: Normal breath sounds. Musculoskeletal: Cervical back: Normal range of motion and neck supple. Skin: General: Skin is warm and dry. Capillary Refill: Capillary refill takes less than 2 seconds. Neurological: General: No focal deficit present. Mental Status: She is alert and oriented to person, place, and time. Psychiatric: Mood and Affect: Mood normal. Behavior: Behavior normal. Thought Content: Thought content normal. Judgment: Judgment normal. Assessment and Plan Physical exam findings as noted above. Urinalysis shows leukocyte esterase with moderate blood and urine culture was ordered. Patient was provided with prescriptions for Keflex 500 mg and Pyridium 100 mg. Patient states that she typically develops vaginal yeast infections with antibiotic use and she was provided with a prescription of Diflucan 150 mg. Patient was advised that results of the urine culture be available in 2 days and she will be contacted if there is a need to change her medication based on sensitivity report. Additional supportive care was discussed and the patient verbalizes clear understanding of same. CLINICAL IMPRESSION: Acute UTI; Acute URI ASSESSMENT/PLAN: 1. Urinary frequency - ICD9: 788.41, ICD10: R35.0 (primary diagnosis) - UA DIP, URINE (POC) - BACTERIAL CULTURE, URINE 2. Acute UTI - ICD9: 599.0, ICD10: N39.0 - BACTERIAL CULTURE, URINE - CEPHALEXIN 500 MG CAPSULE - PHENAZOPYRIDINE 100 MG TABLET - FLUCONAZOLE 150 MG TABLET 3. Acute URI - ICD9: 465.9, ICD10: J06.9 MDM Number of Diagnoses or Management Options Amount and/or Complexity of Data Reviewed Clinical lab tests: ordered and reviewed Risk of Complications, Morbidity, and/or Mortality Presenting problems: low Diagnostic procedures: low Management options: low Jaky Tang PA-C documented in this encounter [facility] 01-17-2024 Telephone encounter Note Patient notified of results, verbalizes understanding of instructions. Michelle Mendez MA [facility] 01-17-2024 Miscellaneous Notes Patient notified of results, verbalizes understanding of instructions. Michelle Mendez MA Have called in vaginal suppositories, Flagyl. Quit taking oral Flagyl. Follow up with PCP for continued concerns. Please advise. Pt calling to report she picked up the Flagyl on Saturday and started it. Started with side effect in the middle of the night. Started with Stomach pain and took the 2nd dose Saturday with food and started vomiting and she can not eat . Continued to take medication thru am. When she tries to eat she gets nauseated. Pt asking if there is something something different she can take and Zofran for nausea. Pt does not have a pcp. Please advise pt. Candace Paula LPN documented in this encounter [facility] 01-17-2024 Telephone encounter Note Have called in vaginal suppositories, Flagyl. Quit taking oral Flagyl. Follow up with PCP for continued concerns. Please advise. [facility] 01-17-2024 Telephone encounter Note Pt calling to report she picked up the Flagyl on Saturday and started it. Started with side effect in the middle of the night. Started with Stomach pain and took the 2nd dose Saturday with food and started vomiting and she can not eat . Continued to take medication thru am. When she tries to eat she gets nauseated. Pt asking if there is something something different she can take and Zofran for nausea. Pt does not have a pcp. Please advise pt. Candace Paula LPN [facility] 01-12-2024 Telephone encounter Note Patient active MyChart. Patient notified via [employer] message. Michelle Mendez MA [facility] 01-12-2024 Miscellaneous Notes Patient active AB [employer]. Patient notified via [employer] message. Michelle Mendez MA Please let patient know urine culture did not reveal a UTI. She may stop the Keflex. Continue the Flagyl as prescribed for BV documented in this encounter [facility] 01-12-2024 Telephone encounter Note Please let patient know urine culture did not reveal a UTI. She may stop the Keflex. Continue the Flagyl as prescribed for BV [facility] Work Phone: 01-11-2024 Note HNO ID: [id number] Author: IBRAHIMA COSTELLO PA-C Service: ? Author Type: Physician 2 Year Olds Preschool Teacher Type: Progress Notes Filed: 01/11/2024 14:38 Note Text: This note was created using Tenebril. Hermelinda Carlin is a 33 year old female. HPI Patient presents with a chief complaint of dysuria and frequency over the past day. Denies blood in urine. No back pain or abdominal pain. She has had UTIs before and this feels similar. No vaginal itching or discharge. She states last menstrual cycle was about a week ago. She is sexually active with 1 partner, not having any STD symptoms but would like screened while she is here. No fever. No vomiting. No rash. Review of Systems Constitutional: Negative. HENT: Negative. Eyes: Negative. Respiratory: Negative. Cardiovascular: Negative. Gastrointestinal: Negative. Genitourinary: Positive for dysuria, frequency and urgency. Negative for hematuria, pelvic pain, vaginal bleeding, vaginal discharge and vaginal pain. Musculoskeletal: Negative. All other systems reviewed and are negative. PAST MEDICAL HISTORY Diagnosis Date Adjustment disorder with depressed mood Current Outpatient Medications Medication Sig Dispense Refill lurasidone (LATUDA) 20 mg tablet Take 20 mg by mouth once daily. hydrOXYzine HCl (ATARAX) 25 mg tablet take 1 tablet by mouth at bedtime and 1 tablet by mouth once kyle... (REFER TO PRESCRIPTION NOTES). escitalopram oxalate (LEXAPRO) 10 mg tablet Take 1 tablet by mouth every afternoon. fluticasone (FLONASE) 50 mcg/actuation nasal spray Use 2 Sprays in each nostril once daily. Rinse mouth after use. 1 Each 0 cephALEXin (KEFLEX) 500 mg capsule Take 1 capsule by mouth two times a day for 7 days. 14 capsule 0 No current facility-administered medications for this visit. PAST SURGICAL HISTORY Procedure Laterality Date TYMPANOSTOMY LOCAL/TOPICAL ANESTHESIA FAMILY HISTORY Problem Relation Age of Onset Cancer Maternal Grandmother lung Social History Tobacco Use Smoking status: Every Day Current packs/day: 0.50 Types: Cigarettes Smokeless tobacco: Never Tobacco comments: smokes 3-4 ciggs Substance Use Topics Alcohol use: No Drug use: No Objective BP 99/62 Pulse 85 Temp 36.8 ?C (98.3 ?F) Resp 20 Wt 50.8 kg (111 lb 15.9 oz) LMP 01/08/2024 (Exact Date) SpO2 99% BMI 19.53 kg/m? Physical Exam Constitutional: Appearance: Normal appearance. HENT: Head: Normocephalic and atraumatic. Cardiovascular: Rate and Rhythm: Regular rhythm. Heart sounds: Normal heart sounds. Pulmonary: Effort: Pulmonary effort is normal. Breath sounds: Normal breath sounds. Abdominal: General: Abdomen is flat. Bowel sounds are normal. Palpations: Abdomen is soft. Comments: Mild suprapubic ttp. No guarding or rebound. Skin: General: Skin is warm and dry. Neurological: Mental Status: She is alert. Assessment and Plan ASSESSMENT/PLAN: 1. Acute UTI - ICD9: 599.0, ICD10: N39.0 (primary diagnosis) acute - UA positive for ben esterase and hematuria - Send urine for culture - Begin treatment with keflex for 7 days - UA DIP, URINE (POC) - URINE CULTURE 2. Screening for STD (sexually transmitted disease) - ICD9: V74.5, ICD10: Z11.3 - BACTERIAL VAGINOSIS NAAT - BRIAN/TRICHOMONAS NAAT - GONORRHEA/CHLAMYDIA NAAT Ibrahima Costello PA-C [facility] 01-11-2024 History of Presen t illness Narrative This note was created using Tenebril. Subjective Bella Carlin is a 33 year old female. HPI Patient presents with a chief complaint of dysuria and frequency over the past day. Denies blood in urine. No back pain or abdominal pain. She has had UTIs before and this feels similar. No vaginal itching or discharge. She states last menstrual cycle was about a week ago. She is sexually active with 1 partner, not having any STD symptoms but would like screened while she is here. No fever. No vomiting. No rash. Review of Systems Constitutional: Negative. HENT: Negative. Eyes: Negative. Respiratory: Negative. Cardiovascular: Negative. Gastrointestinal: Negative. Genitourinary: Positive for dysuria, frequency and urgency. Negative for hematuria, pelvic pain, vaginal bleeding, vaginal discharge and vaginal pain. Musculoskeletal: Negative. All other systems reviewed and are negative. PAST MEDICAL HISTORY Diagnosis Date Adjustment disorder with depressed mood Current Outpatient Medications Medication Sig Dispense Refill lurasidone (LATUDA) 20 mg tablet Take 20 mg by mouth once daily. hydrOXYzine HCl (ATARAX) 25 mg tablet take 1 tablet by mouth at bedtime and 1 tablet by mouth once kyle... (REFER TO PRESCRIPTION NOTES). escitalopram oxalate (LEXAPRO) 10 mg tablet Take 1 tablet by mouth every afternoon. fluticasone (FLONASE) 50 mcg/actuation nasal spray Use 2 Sprays in each nostril once daily. Rinse mouth after use. 1 Each 0 cephALEXin (KEFLEX) 500 mg capsule Take 1 capsule by mouth two times a day for 7 days. 14 capsule 0 No current facility-administered medications for this visit. PAST SURGICAL HISTORY Procedure Laterality Date TYMPANOSTOMY LOCAL/TOPICAL ANESTHESIA FAMILY HISTORY Problem Relation Age of Onset Cancer Maternal Grandmother lung Social History Tobacco Use Smoking status: Every Day Current packs/day: 0.50 Types: Cigarettes Smokeless tobacco: Never Tobacco comments: smokes 3-4 ciggs Substance Use Topics Alcohol use: No Drug use: No Objective BP 99/62 Pulse 85 Temp 36.8 C (98.3 F) Resp 20 Wt 50.8 kg (111 lb 15.9 oz) LMP 01/08/2024 (Exact Date) SpO2 99% BMI 19.53 kg/m Physical Exam Constitutional: Appearance: Normal appearance. HENT: Head: Normocephalic and atraumatic. Cardiovascular: Rate and Rhythm: Regular rhythm. Heart sounds: Normal heart sounds. Pulmonary: Effort: Pulmonary effort is normal. Breath sounds: Normal breath sounds. Abdominal: General: Abdomen is flat. Bowel sounds are normal. Palpations: Abdomen is soft. Comments: Mild suprapubic ttp. No guarding or rebound. Skin: General: Skin is warm and dry. Neurological: Mental Status: She is alert. Assessment and Plan ASSESSMENT/PLAN: 1. Acute UTI - ICD9: 599.0, ICD10: N39.0 (primary diagnosis) acute - UA positive for ben esterase and hematuria - Send urine for culture - Begin treatment with keflex for 7 days - UA DIP, URINE (POC) - URINE CULTURE 2. Screening for STD (sexually transmitted disease) - ICD9: V74.5, ICD10: Z11.3 - BACTERIAL VAGINOSIS NAAT - BRIAN/TRICHOMONAS NAAT - GONORRHEA/CHLAMYDIA NAAT Ibrahima Costello PA-C documented in this encounter [facility] 12-19-2023 Hospital Discharg e instructions Patient Education 12/19/2023 19:21:09 What Is Appendicitis? What Is Appendicitis? Maybe your side hurt so much that you called your healthcare provider. Or maybe you went straight to the hospital emergency room. If the symptoms came on quickly, you may have appendicitis. This is an infection of the appendix. Surgery can remove the infection and relieve your symptoms. Read on to learn more. Your appendix The appendix is a hollow pouch about the size of your little finger. It hangs off the colon (large intestine). The purpose of the appendix is unclear. But if it becomes blocked, it may become infected. Symptoms of appendicitis Symptoms tend to appear quickly, often over 1 to 2 days. Symptoms can include: Pain that starts in the center of your belly and moves to your lower right side Increased pain and pressure on your side when you walk Vomiting, nausea, or decreased appetite Fever or fatigue Either diarrhea or constipation How surgery helps Medicine can t cure appendicitis. Surgery is needed to remove an infected appendix. This is called an appendectomy. This is a very common procedure. Removing the appendix should not affect your long-term health. It s best to remove the appendix before it bursts. If an infected or burst appendix is not removed, it can cause severe health problems. [id number] [employer]. [address] [place] [address]. All rights reserved. This information is not intended as a substitute for professional medical care. Always follow your healthcare professional's instructions. Follow Up Care 12/19/2023 16:26:06 With:Ginger CERDA DO, Dr. Cerda Address: [address] [place] [address] [address] [facility] [address] [place] [phone] When:12/23/2023 Comments:Please call to make an appointment With:Follow up with primary care provider Address: When:5 to 7 days [facility] 12-19-2023 Note Discharge Instructions Thank you for allowing [facility] to assist you with your healthcare needs. The following is important discharge information regarding your hospital visit. Diagnosis from Today's Visit Abdominal pain Appendicitis What to Do Next Instructions from Your Care Team You were diagnosed with early appendicitis. Please take Augmentin 500mg Twice a day for 5 days. Please follow-up with Dr. Cerda's office first thing on Saturday morning for re-assessment. Please call to make an appointment. We will also provide with a few days of [place] for additional pain control. If you have worsening abdominal pain, please call their office or report back to Emergency Department. No qualifying data available. Post Acute Orders No qualifying data available. You Need to Schedule the Following Appointments Follow Up with Follow up with primary care provider When:Within 5 to 7 days Follow Up with Ginger CERDA DO, Dr. Cerda When:In 4 days 12/23/2023 EDT Where:[address] [facility] [address] [phone] Additional Information: Please call to make an appointment Allergies NKA Medications Please ask your primary doctor or pharmacist before taking any other medication not listed, including over the counter drugs, herbal medications, vitamins and or supplements as they may interact with your home medications. What How Much When Why Instructions Last Dose New acetaminophen-hydrocodone ([place] 325- 5 mg oral tablet) 1 tab(s) by mouth Every 6 hours as needed for for pain Appendicitis Duration: 3 Days Printed Prescription New amoxicillin-clavulanate (Augmentin 500 mg-125 mg oral tablet) 1 tab(s) by mouth Every 12 hours Duration: 5 Days Printed Prescription Please take this list to your next doctor s visit. Bring all medications you take, including over the counter medications, herbals and other supplements with you to your doctor s visit. Patients and families are reminded to discard old lists and to update any records with all medication providers or retail pharmacies. Education Materials What Is Appendicitis? Maybe your side hurt so much that you called your healthcare provider. Or maybe you went straight to the hospital emergency room. If the symptoms came on quickly, you may have appendicitis. This is an infection of the appendix. Surgery can remove the infection and relieve your symptoms. Read on to learn more. Your appendix The appendix is a hollow pouch about the size of your little finger. It hangs off the colon (large intestine). The purpose of the appendix is unclear. But if it becomes blocked, it may become infected. Symptoms of appendicitis Symptoms tend to appear quickly, often over 1 to 2 days. Symptoms can include: Pain that starts in the center of your belly and moves to your lower right side Increased pain and pressure on your side when you walk Vomiting, nausea, or decreased appetite Fever or fatigue Either diarrhea or constipation How surgery helps Medicine can t cure appendicitis. Surgery is needed to remove an infected appendix. This is called an appendectomy. This is a very common procedure. Removing the appendix should not affect your long-term health. It s best to remove the appendix before it bursts. If an infected or burst appendix is not removed, it can cause severe health problems. [phone] [employer]. [address] [place] [address]. All rights reserved. This information is not intended as a substitute for professional medical care. Always follow your healthcare professional's instructions. Additional Information VACCINATE! IT SAVES LIVES! Members of the community who have not yet received the COVID-19 vaccine and would like to receive it can visit one of [facility] vaccine clinics. There are many vaccine clinic locations within the [facility]. For locations and available times, please visit [email or web address] [email or web address] It is important to note that some COVID mobile vaccine clinics are held outdoors and may be canceled in rainy or stormy conditions. To learn more about pediatric vaccinations (ages 5-11), we invite you to visit the [facility] webpage. [email or web address] [email or web address] To learn more about the COVID-19 vaccine, we invite you to visit the CDC website for a list of frequently asked questions. https://www.cdc.gov/coronavirus/ 2019-ncov/vaccines/faq.html [employer] Patient Portal Access Instructions: Stay connected with your healthcare team and access your personal medical information anytime with the [facility] Patient Portal. If you would like a full copy of your medical records please contact the [facility] Medical Records Department Saturday through Saturday between 8a.m. and 4:30p.m. Please follow the directions below to access the portal: 1.Access the email account you provided upon registration to the hospital.2.Look for an invitation email from [facility].3.Open the email and access the invitation link: Accept Invitation to [facility]4.Fill in the required coe to create your account. Sign into [email or web address] with your username and password that you created in the above steps to stay up to date. You can then view a summary of results, a summary of your visits, and the ability to download your summaries to your computer or send the information securely to a physician. Remember that your healthcare information is confidential, so carefully consider who you will allow to register on the [employer] Patient Portal for access to your information. You can also access the [employer] Patient Portal on the [employer] ramon. Simply click on Health Records under Health Data and then click on the [employer] logo. HOW TO SAFELY DISPOSE OF PRESCRIPTION MEDICATIONS Please use one of the following methods to safely dispose of your unused medications. 1.Use a drug disposal kit: the drug disposal pouch allows you to safely discard your old and unused drugs. Ask your nurse to give you one when you are discharged.2.Visit a local take-back location: Many local pharmacies and police departments have programs that collect old and unwanted prescription drugs. Call your local pharmacy or go to http://[employer]/2B7Tg6h to find one close to you.3.Make use of household items: Use cat litter or old coffee grounds to dispose medications if other options are not available. Mix your drugs with these household products, seal them in an airtight container and throw it into the garbage. Call [facility]: [phone] to be sure your drugs can be disposed of in this way. Some medicines may require a different approach.4.Never flush your medications down the toilet. IF YOU HAVE BEEN PRESCRIBED AN OPIOIDS FOR PAIN If you have been prescribed an opioid (such as hydrocodone, oxycodone or morphine), it is critical to understand the possible side effects and risks of opioid pain medications. Even when taken as directed, opioids can have several side effects including: Tolerance, meaning you might need to take more of a medication for the same pain relief. Nausea, vomiting and/or constipation. Sleepiness, dizziness, dry mouth, confusion, depression or itching. Physical dependence, meaning you have withdrawal symptoms when a medication is stopped ? this can develop within a few days. KNOW YOUR RESPONSIBILITIES It is important to know exactly how much and how often to take the opioid pain medications you are prescribed. Never take opioids in higher amounts or more often than prescribed. Do not combine opioids with alcohol or other drugs that cause drowsiness, such as benzodiazepines, also known as benzos, including diazepam and alprazolam, muscle relaxants or sleep aids. Never sell or share prescription opioids. This is illegal. Store opioids in a secure place and out of reach of others (including children, family, friends and visitors). The last page(s) of this document has been signed and retained as a CHART COPY Signatures Patient Education Materials What Is Appendicitis? Medication Leaflets My discharge plan and instructions have been reviewed and explained to me and I,BELLA BORREGO understand my current condition and have read and understand these discharge instructions. I have received a written copy of the plan/instructions. If I have questions, I am aware that I should contact my doctor. 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 Multiplanar reformatted images are provided for review. Automated exposure control, iterative reconstruction, and/or weight based adjustment of the mA/kV was utilized to reduce the radiation dose to as low as reasonably achievable. COMPARISON: None. HISTORY: ORDERING SYSTEM PROVIDED HISTORY: Reason for Exam: pain FINDINGS: Lower Chest: Visualized lower thorax demonstrates no consolidation or pleural effusion. Organs: The liver demonstrates no biliary duct dilatation or gross mass. There is small hypodense region at the anterior liver adjacent to falciform fissure possibly small cyst or focal fatty infiltration. The gallbladder demonstrates no calcified gallstones or gross wall thickening. The pancreas demonstrates no evidence of mass, ductal dilatation, or inflammatory process. Spleen is normal in size. Adrenal glands are normal in size. Right kidney demonstrates no hydronephrosis or obstructive calculi. There is a left renal 3 mm calculus without hydronephrosis. Ureters are normal in caliber bilaterally. GI/Bowel: Stomach and duodenal sweep demonstrate no acute abnormality. Small bowel and colon are normal in caliber. Appendix measures up to 6 mm with minimal wall thickening and mild enhancement, possible mild/early appendicitis. Correlation with clinical findings and follow-up study may be useful. There are mildly enlarged mesenteric nodes, nonspecific, which may be reactive. There is a small fat-containing periumbilical hernia. Pelvis: Urinary bladder is within normal limits. Uterus and ovaries are grossly normal in morphology. Peritoneum/Retroperitoneum: Aorta is normal in caliber. Bones/Soft Tissues: Osseous structures are intact. IMPRESSION: 1. Appendix measures up to 6 mm with minimal wall thickening and mild enhancement, possible mild/early appendicitis. Correlation with clinical findings and follow-up study may be useful. 2. Nonobstructing left renal calculus. Interpreted by: Ayo Ferguson Preliminary Report By: Ayo Ferguson Electronically signed By Ayo Ferguson Dictated Date: 12/19/2023 6:33:24 PM Prelim Date: 12/19/2023 6:46:29 PM Sign Date: 12/19/2023 6:46:29 PM Ordering Provider: [facility] 11-13-2023 Note HNO ID: [id number] Author: TONIO WHARTON MD Service: ? Author Type: Physician Type: Progress Notes Filed: 11/13/2023 09:50 Note Text: Patient presents with: Mouth/Lip Problem: Sore roof of mouth, GARCIA x1 day HPI: Feeling sore mouth since yesterday. Positive symptoms: Sore throat/roof of mouth sore, Headache, ear congestion, Negative symptoms: Cough, Nasal Congestion, Rhinorrhea, Fever, OTC: increasing lexapro, taking hydroxyzine, uses flonase, gets allergy shots MEDICATIONS: Current Outpatient Medications Medication Sig hydrOXYzine HCl (ATARAX) 25 mg tablet take 1 tablet by mouth at bedtime and 1 tablet by mouth once kyle... (REFER TO PRESCRIPTION NOTES). escitalopram oxalate (LEXAPRO) 10 mg tablet Take 1 tablet by mouth every afternoon. fluticasone (FLONASE) 50 mcg/actuation nasal spray Use 2 Sprays in each nostril once daily. Rinse mouth after use. guaiFENesin (MUCINEX) 600 mg 12 hr tablet Take 2 tablets by mouth twice daily. escitalopram oxalate (LEXAPRO) 5 mg tablet Take 1 tablet by mouth every afternoon. (Patient not taking: Reported on 11/13/2023) No current facility-administered medications for this visit. ALLERGIES: ALLERGIES No Known Allergies VITALS: BP 108/68 Pulse 79 Temp 36.9 ?C (98.4 ?F) Resp 18 Wt 52 kg (114 lb 10.2 oz) LMP (LMP Unknown) SpO2 98% PHYSICAL EXAM: GEN: Pleasant, in no acute distress. HEENT: PERRL, EOMI, conjunctiva clear Ears: canals clear. TMs with remote scars; no erythema or bulge; possible right effusion Sinuses: non-tender frontal sinus, non-tender maxillary sinuses Throat: moist mucous membranes, palate erythema, hard palate shallow ulcerations. Neck: supple, no thyromegaly, no lymphadenopathy HEART: regular rate and rhythm, no murmurs LUNGS: clear to auscultation, no wheezes or crackles, no increased WOB ASSESSMENT/PLAN: 1. Oral ulceration - ICD9: 528.9, ICD10: K12.1 (primary diagnosis) 2. Sore throat - ICD9: 462, ICD10: J02.9 - STREP A MOLECULAR (POC) - negative Suspect viral infection of palate. Low suspicion for thrush. Supportive care with lozenges, gargles, throat spray, Orajel, analgesia. Seeing ENT later today for ear effusion follow-up Tonio Wharton MD [facility] 11-13-2023 History of Presen t illness Narrative Patient presents with: Mouth/Lip Problem: Sore roof of mouth, GARCIA x1 day HPI: Feeling sore mouth since yesterday. Positive symptoms: Sore throat/roof of mouth sore, Headache, ear congestion, Negative symptoms: Cough, Nasal Congestion, Rhinorrhea, Fever, OTC: increasing lexapro, taking hydroxyzine, uses flonase, gets allergy shots MEDICATIONS: Current Outpatient Medications Medication Sig hydrOXYzine HCl (ATARAX) 25 mg tablet take 1 tablet by mouth at bedtime and 1 tablet by mouth once kyle... (REFER TO PRESCRIPTION NOTES). escitalopram oxalate (LEXAPRO) 10 mg tablet Take 1 tablet by mouth every afternoon. fluticasone (FLONASE) 50 mcg/actuation nasal spray Use 2 Sprays in each nostril once daily. Rinse mouth after use. guaiFENesin (MUCINEX) 600 mg 12 hr tablet Take 2 tablets by mouth twice daily. escitalopram oxalate (LEXAPRO) 5 mg tablet Take 1 tablet by mouth every afternoon. (Patient not taking: Reported on 11/13/2023) No current facility-administered medications for this visit. ALLERGIES: ALLERGIES No Known Allergies VITALS: BP 108/68 Pulse 79 Temp 36.9 C (98.4 F) Resp 18 Wt 52 kg (114 lb 10.2 oz) LMP (LMP Unknown) SpO2 98% PHYSICAL EXAM: GEN: Pleasant, in no acute distress. HEENT: PERRL, EOMI, conjunctiva clear Ears: canals clear. TMs with remote scars; no erythema or bulge; possible right effusion Sinuses: non-tender frontal sinus, non-tender maxillary sinuses Throat: moist mucous membranes, palate erythema, hard palate shallow ulcerations. Neck: supple, no thyromegaly, no lymphadenopathy HEART: regular rate and rhythm, no murmurs LUNGS: clear to auscultation, no wheezes or crackles, no increased WOB ASSESSMENT/PLAN: 1. Oral ulceration - ICD9: 528.9, ICD10: K12.1 (primary diagnosis) 2. Sore throat - ICD9: 462, ICD10: J02.9 - STREP A MOLECULAR (POC) - negative Suspect viral infection of palate. Low suspicion for thrush. Supportive care with lozenges, gargles, throat spray, Orajel, analgesia. Seeing ENT later today for ear effusion follow-up Tonio Wharton MD documented in this encounter [facility] 11-16-2022 Instructions Sasha Rodriguez APRN.ASSISTANT WOMEN'S TENNIS COACH - 11/16/2022 2:59 PM EDT Covid, rsv, and influenza test ordered You will be notified in 12-24 hours, results available on [facility] Home isolation until results are back Rest, increase water intake Motrin or Tylenol as needed for fever or pain. Salt water gargles, chloraseptic spray or lozenges as needed for sore throat. Warm beverages, honey. Nasal saline spray as needed Cool mist humidifier at night Tylenol (generic acetaminophen) 500 mg-2 tabs every 8 hrs. as needed for fever and aches Ibuprofen 600 mg (3-200mg tablets) every 6 hours -Mucinex (generic is fine) Guaifenesin 1200 mg twice daily to help with cough and to thin out mucus Tessalon Perles 1-2 every 8 hours, do not combine this with robitussin or delsym * Seek medical care immediately, call 911, go to ER if you have chest pain, difficulty breathing, shortness of breath, inability to swallow. documented in this encounter [facility] 11-16-2022 History of Presen t illness Narrative Subjective The history is provided by the patient. No shipping/receiving clerk was used. HPI Bella Carlin is a 32 year old female who presents today for CC of cough, congestion sore throat and runny nose for 5 days. She has used otc cold medication with short term relief. Known exposure to covid BP 120/73 Pulse 117 Temp 37.8 C (100.1 F) Resp 18 Wt 56.1 kg (123 lb 9.6 oz) LMP (LMP Unknown) SpO2 99% Social History Tobacco Use Smoking status: Every Day Packs/day: .5 Types: Cigarettes Smokeless tobacco: Never Tobacco comments: smokes 3-4 ciggs Substance Use Topics Alcohol use: No Drug use: No PAST MEDICAL HISTORY Diagnosis Date Adjustment disorder with depressed mood I have confirmed and edited as necessary, the [facility] Review of Systems Constitutional: Negative for chills and fever. HENT: Negative for congestion, ear pain, sinus pain and sore throat. Respiratory: Positive for cough. Negative for sputum production, shortness of breath and wheezing. Cardiovascular: Negative for chest pain. Musculoskeletal: Negative for myalgias. Neurological: Negative for headaches. Objective Physical Exam Vitals and nursing note reviewed. HENT: Head: Normocephalic and atraumatic. Right Ear: Tympanic membrane, ear canal and external ear normal. Left Ear: Tympanic membrane, ear canal and external ear normal. Nose: Mucosal edema, congestion and rhinorrhea present. Right Sinus: No maxillary sinus tenderness or frontal sinus tenderness. Left Sinus: No maxillary sinus tenderness or frontal sinus tenderness. Mouth/Throat: Pharynx: Uvula midline. No oropharyngeal exudate or posterior oropharyngeal erythema. Cardiovascular: Rate and Rhythm: Normal rate and regular rhythm. Heart sounds: Normal heart sounds. Pulmonary: Effort: Pulmonary effort is normal. Breath sounds: Normal breath sounds. Lymphadenopathy: Head: Right side of head: No submental, submandibular or tonsillar adenopathy. Left side of head: No submental, submandibular or tonsillar adenopathy. Cervical: No cervical adenopathy. Skin: General: Skin is warm and dry. Neurological: Mental Status: She is alert. Psychiatric: Mood and Affect: Affect normal. ASSESSMENT/PLAN: 1. URI with cough and congestion - ICD9: 465.9, ICD10: J06.9 (primary diagnosis) - Discussed viral etiology and rationale for treatment. - Symptomatic treatment with prn analgesia - Supportive care with fluids and rest - COVID & INFLUENZA A/B & RSV NAAT, ROUTINE 2. Exposure to COVID-19 virus - ICD9: V01.79, ICD10: Z20.822 Home isolation Testing ordered Comfort measures discussed - see patient instructions. When to seek higher level of care Notified in 12-24 hours with results, available on mychart Diagnosis and treatment plan were discussed and questions were answered to the patient's satisfaction. Pt acknowledged understanding of concepts and follow up plan. Specific signs and symptoms that would indicate the need for higher level of care were discussed in detail warranting prompt ER evaluation. Sasha Rodriguez APRN.ASSISTANT WOMEN'S TENNIS COACH documented in this encounter [facility] 08-30-2022 Miscellaneous Notes Phone call placed patient advised (see prior provider encounter) Patient verbalized understanding, agreed with plan of care. Elo Paula LPN Negative for COVID and flu please notify thank you documented in this encounter [facility] 08-30-2022 Instructions Clifton Zhang APRN.ALEJANDRA - 08/30/2022 8:40 AM EDT How to Manage Common Symptoms Associated with COVID for Adults Fever- Fever is a temperature over 100.4 F and can occur when the body is fighting an infection. To help treat a fever: Drink plenty of fluids and stay well hydrated. Eat small amounts of easy to digest food. Rest. Your body needs rest to recover, but getting up and moving around the house frequently is a good idea. You should try to continue doing your normal daily activities (bathing, toileting, grooming, cooking), though you will probably feel tired, and need to rest often. Avoid any heavy activity or exercise, as this will increase your body temperature. Dress in light clothing and stay covered in a light sheet. Keep the room temperature cool. Take a slightly warm (not cold or cool) bath, or apply damp washcloths to the forehead and wrists. Cough- Cough is a common symptom associated with COVID and can be bothersome. To help treat a cough: Stay well hydrated. Try warm water or tea with lemon and/or honey to help soothe the cough. Use a humidifier to add moisture to the air. Try a product with menthol, like a cough drop or a rub for your chest such as Vicks, which can help reduce cough. Try cough drops. Avoid smoking and other strong odors or perfumes. Try breathing exercises to keep your lungs open and clear. Take a big deep breath through your nose and hold for 5 seconds before slowly releasing. Repeat frequently, while you are awake. Congestion- Runny nose or nasal congestion can occur with COVID. Treatment can help relieve symptoms: Try OTC nasal saline spray, or nasal saline rinse to relieve mucus congestion. Nasal strips can help keep nasal passages open, to increase airflow. Elevating your head with an extra pillow in bed can help reduce congestion. Using a humidifier can increase moisture in the air, and make breathing easier. Sore Throat- Another common symptom with COVID, can be managed at home by: Stay well hydrated. Gargle with salt water - mix teaspoon salt with 1 cup of warm water and gargle. This helps to loosen mucus in the back of the throat and may reduce discomfort. Try ice chips, popsicles or lozenges to soothe the throat. Nausea/Vomiting/Diarrhea- These are common symptoms, and staying hydrated is most important. If you are nauseous or vomiting, start with small sips of water every 10-15 minutes and increase as tolerated. You can try sucking an ice cube too. If tolerating, you can try pedialyte or Gatorade, or flat sprite or jarocho-cesar. Start slowly and increase as you are able to. Instead of meals, try smaller, more frequent snacks. Try eating bland foods like crackers, toast, rice, and applesauce. Avoid spicy, greasy or fried foods and dairy containing foods. Even if you aren't feeling hungry due to lack of smell or taste, it is important to try to take in some food when you are able. After drinking and eating, rest in an upright position for up to two hours as needed to help decrease nauseous feelings. Try closing your eyes, avoid moving and watching TV. Avoid strong odors that can make you feel more nauseated. When to seek emergency medical attention Look for emergency warning signs for COVID-19. If having any of these symptoms, seek emergency medical care immediately: Trouble breathing Persistent pain or pressure in the chest New confusion Inability to wake or stay awake Bluish lips or face *This list is not all possible symptoms. Please call your medical provider for any other symptoms that are severe or concerning to you. documented in this encounter [facility] 08-30-2022 History of Presen t illness Narrative Subjective HPI Nontoxic-appearing female presents to urgent care with chief complaint of fever and cough. Duration of symptoms 2 days. Associated symptoms with today's chief complaint are on and off headache, muscle aches, fatigue, nonproductive cough, and fever. Patient stated symptoms started abruptly. Patient states they have used [id number]-fxhtuwd medication with some success. Patient states they were in contact with individuals who were diagnosed with covid. Patient denies any pain at this time. Patient denies any visual changes, visual disturbance, shortness of breath, rash, exercise intolerance, pleuritic pain, productive cough, abdominal pain, nausea, vomiting, chest pain, or change in bowel or bladder habits. Past medical history prescription medication use allergies reviewed. .Patient presents with: Sore Throat: Cough, intermittent fever x2 days PAST MEDICAL HISTORY Diagnosis Date Adjustment disorder with depressed mood PAST SURGICAL HISTORY Procedure Laterality Date TYMPANOSTOMY LOCAL/TOPICAL ANESTHESIA ALLERGIES Patient has no known allergies. MEDICATIONS medroxyPROGESTERone (DEPO-PROVERA) 150 mg/mL injection Inject intramuscularly. clindamycin (CLEOCIN) 300 mg capsule take 1 capsule by mouth three times a day for 10 days (Patient not taking: Reported on 08/30/2022) naproxen (NAPROSYN) 500 mg tablet Take 1 tablet by mouth three times daily with meals. Take with food. (Patient not taking: Reported on 08/30/2022) LORATADINE 10 MG TAB Take one(1) tablet daily. (Patient not taking: Reported on 08/30/2022) FAMILY HISTORY Problem Relation Age of Onset Cancer Maternal Grandmother lung Social History Tobacco Use Smoking status: Every Day Packs/day: 0.50 Types: Cigarettes Smokeless tobacco: Never Tobacco comments: smokes 3-4 ciggs Substance Use Topics Alcohol use: No Drug use: No BP 102/58 Pulse 77 Temp 36.3 C (97.4 F) Resp 18 Wt 53.5 kg (118 lb) LMP (LMP Unknown) SpO2 98% Review of Systems Constitutional: Positive for chills, fever and malaise/fatigue. HENT: Positive for congestion and sore throat. Negative for ear discharge, ear pain and sinus pain. Eyes: Negative for blurred vision, pain, discharge and redness. Respiratory: Positive for cough. Negative for hemoptysis, sputum production, shortness of breath, wheezing and stridor. Cardiovascular: Negative for chest pain. Gastrointestinal: Negative for abdominal pain, diarrhea, nausea and vomiting. Musculoskeletal: Positive for myalgias. Skin: Negative for itching and rash. Neurological: Positive for headaches. Negative for dizziness. Objective Physical Exam Constitutional: General: She is not in acute distress. Appearance: She is not diaphoretic. HENT: Head: Normocephalic. Mouth/Throat: Mouth: Mucous membranes are moist. Pharynx: Oropharynx is clear. No oropharyngeal exudate or posterior oropharyngeal erythema. Eyes: Conjunctiva/sclera: Conjunctivae normal. Pupils: Pupils are equal, round, and reactive to light. Cardiovascular: Rate and Rhythm: Normal rate and regular rhythm. Heart sounds: Normal heart sounds. Pulmonary: Effort: Pulmonary effort is normal. No tachypnea, accessory muscle usage or respiratory distress. Breath sounds: Normal breath sounds. No stridor. No wheezing, rhonchi or rales. Abdominal: Palpations: Abdomen is soft. Tenderness: There is no abdominal tenderness. There is no guarding or rebound. Musculoskeletal: Cervical back: Normal range of motion and neck supple. No rigidity or tenderness. Lymphadenopathy: Cervical: No cervical adenopathy. Skin: General: Skin is warm and dry. Neurological: Mental Status: She is alert and oriented to person, place, and time. ASSESSMENT/PLAN: 1. Viral illness - ICD9: 079.99, ICD10: B34.9 (primary diagnosis) - COVID WITH FLUA+B, ROUTINE 2. Suspected COVID-19 virus infection - ICD9: V01.79, ICD10: Z20.822 - COVID WITH FLUA+B, ROUTINE Positive exposure to COVID-19 accompanied with patient's symptoms will test for influenza and COVID-19. Work note provided. Red flags reevaluation discussed. Patient was educated on supportive therapies. Patient will follow up with primary care provider as needed. Patient was instructed to immediately proceed to emergency room for any new, worsening, or symptoms lasting longer than anticipated. The patient's clinical presentation is otherwise unremarkable at this time. Based on exam and clinical finding, the patient is stable for discharge. Plan of care was discussed with patient. Patient verbalizes understanding and agrees to plan of care. This note was generated using [employer] software. It may contain errors in wording, punctuation, or spelling. Clifton Zhang APRN.ALEJANDRA documented in this encounter [facility] 02-16-2022 Miscellaneous Notes Influenza letter sent by [employer]. Patient calls to request additional information be added to return to work letter from 02/15/2022. Patient reports letter has to state may return to work with no work restrictions or won't be accepted. Recommended PCP follow up. Patient has no PCP. Milady Max RN documented in this encounter [facility] 02-15-2022 History of Presen t illness Narrative CC: Patient presents with: Pain, Throat: Pt reported + Strep, Covid exposure pain throat pain rated 8, x2 days [employer] , fever. HPI: Bella Carlin is a 31 year old female who presents to the office with complaint of head congestion, cough, nonproductive, sore throat, and fever for a few days. Symptoms are staying the same. Associated symptoms includes headache. Denies nausea, vomiting , and diarrhea. Treatments tried include nothing so far. with no relief of symptoms. Sick contacts: unknown. History of asthma, frequent episodes of bronchitis, chronic bronchitis, bronchiectasis or COPD: No Smoker: No Seasonal/environmental allergies: No The ROS is otherwise negative. The patient's pmh, medications, allergies, and past visits are reviewed. PHYSICAL EXAM: BP 124/76 Pulse 110 Temp 37.3 C (99.2 F) Resp 18 Wt 50.3 kg (110 lb 12.8 oz) LMP (LMP Unknown) SpO2 97% General appearance: alert, cooperative, pleasant, in no acute distress Head: Normocephalic Eyes: EOM's intact, conjunctiva pink and moist, no icterus, sclera white, non-injected Ears: Right ear: External ear/canal- Normal, TM - clear with good landmarks. Left ear: External ear/canal- Normal, TM - clear with good landmarks Oropharynx:moderate erythema, without exudates present Heart: Negative. RRR without obvious murmur, gallop, or rubs. No ectopy. Lungs: clear to auscultation, without rales or wheeze, good air exchange PAST MEDICAL HISTORY Diagnosis Date Adjustment disorder with depressed mood PAST SURGICAL HISTORY Procedure Laterality Date TYMPANOSTOMY LOCAL/TOPICAL ANESTHESIA ALLERGIES Patient has no known allergies. MEDICATIONS pumpkin seed extract-soy germ (AZO BLADDER CONTROL) 300 mg cap Take by mouth. LORATADINE 10 MG TAB Take one(1) tablet daily. FLUTICASONE 50 MCG/ACTUATION NASAL SPRAY AEROSOL 2 sprays each nostril daily (Patient not taking: Reported on 11/28/2021) FAMILY HISTORY Problem Relation Age of Onset Cancer Maternal Grandmother lung Social History Tobacco Use Smoking status: Every Day Packs/day: 0.50 Types: Cigarettes Smokeless tobacco: Never Tobacco comments: smokes 3-4 ciggs Substance Use Topics Alcohol use: No Drug use: No ASSESSMENT/PLAN: 1. Sore throat - ICD9: 462, ICD10: J02.9 (primary diagnosis) - STREP A MOLECULAR (POC) - negative - COVID WITH FLUA+B, ROUTINE 2. URI, acute - ICD9: 465.9, ICD10: J06.9 - COVID WITH FLUA+B, ROUTINE Prescription instructions reviewed with patient as applicable. Potential red flag symptoms discussed with the patient. Reviewed appropriate action plan to take if red flag symptoms occur. Patient agreeable to treatment plan. Michelle Esqueda APRN.[email or web address] documented in this encounter [facility] 11-28-2021 History of Presen t illness Narrative This note was created using Tenebril. Subjective Bella Carlin is a 31 year old female. HPI Patient presents with urinary frequency burning and pelvic pressure for 2 days. She has had UTIs previously and this is similar. No vaginal itching or discharge. She is on Depo for control. Denies blood in her urine. She has had some left flank pain. Review of Systems Constitutional: Negative for fever. HENT: Negative. Respiratory: Negative. Cardiovascular: Negative. Gastrointestinal: Negative for abdominal pain, nausea and vomiting. Genitourinary: Positive for dysuria, frequency, pelvic pain and urgency. Negative for hematuria. All other systems reviewed and are negative. PAST MEDICAL HISTORY Diagnosis Date Adjustment disorder with depressed mood Current Outpatient Medications Medication Sig Dispense Refill pumpkin seed extract-soy germ (AZO BLADDER CONTROL) 300 mg cap Take by mouth. cephALEXin (KEFLEX) 500 mg capsule Take 1 capsule by mouth twice daily for 7 days. 14 capsule 0 LORATADINE 10 MG TAB Take one(1) tablet daily. 30 30 FLUTICASONE 50 MCG/ACTUATION NASAL SPRAY AEROSOL 2 sprays each nostril daily (Patient not taking: Reported on 11/28/2021) 1 3 No current facility-administered medications for this visit. PAST SURGICAL HISTORY Procedure Laterality Date TYMPANOSTOMY LOCAL/TOPICAL ANESTHESIA FAMILY HISTORY Problem Relation Age of Onset Cancer Maternal Grandmother lung Social History Tobacco Use Smoking status: Every Day Packs/day: 0.50 Types: Cigarettes Smokeless tobacco: Never Tobacco comments: smokes 3-4 ciggs Substance Use Topics Alcohol use: No Drug use: No Objective BP 110/62 Pulse 84 Temp 36.9 C (98.4 F) Resp 16 Wt 48.5 kg (107 lb) LMP (LMP Unknown) SpO2 98% Physical Exam Vitals reviewed. Constitutional: Appearance: Normal appearance. HENT: Head: Normocephalic and atraumatic. Cardiovascular: Rate and Rhythm: Normal rate and regular rhythm. Heart sounds: Normal heart sounds. Pulmonary: Effort: Pulmonary effort is normal. Breath sounds: Normal breath sounds. Skin: General: Skin is warm and dry. Neurological: General: No focal deficit present. Mental Status: She is alert. Assessment and Plan ASSESSMENT/PLAN: 1. Acute UTI - ICD9: 599.0, ICD10: N39.0 acute - UA positive for patient took azo, not usable. - Send urine for culture - Begin treatment with keflex for 7 days - UA DIP, URINE (POC) - URINE CULTURE Ibrahima Costello PA-C documented in this encounter [facility] Evaluation + Plan note No data available for this section [facility] Evaluation + Plan note Future Appointments Appointment Date:12/31/2023 11:00:00 AM Scheduled Provider:Ginger CERDA DO Location:[facility] 620 Appointment Type:GS OV Follow Up [facility] Evaluation note No assessment inform ation available [facility] Work Phone: Evaluation note Diagnosis Acute UTI- Primary Urinary tract infection, site not specified documented in this encounter [facility] note* Diagnosis Sore throat- Primary Acute pharyngitis URI, acute Acute upper respiratory infections of unspecified site documented in this encounter [facility] note* Diagnosis Viral illness- Primary Unspecified viral infection, in conditions classified elsewhere and of unspecified site Suspected COVID-19 virus infection documented in this encounter [facility] note* Diagnosis URI with cough and congestion- Primary Exposure to COVID-19 virus documented in this encounter [facility] note* Diagnosis Oral ulceration- Primary Other and unspecified diseases of the oral soft tissues Sore throat Acute pharyngitis documented in this encounter [facility] note* Diagnosis Acute UTI- Primary Urinary tract infection, site not specified Screening for STD (sexually transmitted disease) Screening examination for venereal disease documented in this encounter [facility] note* Diagnosis Urinary frequency- Primary Acute UTI Urinary tract infection, site not specified Acute URI Acute upper respiratory infections of unspecified site documented in this encounter [facility] Discharge instructions No data available for this section [facility] Progress note No data available for this section [facility] Summary Purpose Family History No Family History Records FoundNo Family History Records FoundNo Family History Records FoundNo Family History Records Found No data available for this section No data available for this section No Family History Records FoundNo Family History Records FoundNo Family History Records Found Advance Directives No Advanced Directives Records Found Advance Directive Response Recorded Date/ Time Advance Directives No April 01, 2017 1:57am Living Will No April 23 1:47pm Power of Tobacco Buyer No April 23, 2021 1:47pm Health Concerns Infection Onset Date Last Indicated Resolved Time COVID-19 Rule-Out 02/15/2022 02/15/2022 Infection Onset Date Last Indicated Resolved Time COVID-19 Rule-Out 08/30/2022 08/30/2022 Infection Onset Date Last Indicated Resolved Time COVID-19 Rule-Out 08/30/2022 08/30/2022 08/30/2022 6:36 PM EDT Infection Onset Date Last Indicated Resolved Time COVID-19 Rule-Out 11/16/2022 11/16/2022 Additional Source Comments INFORMATION SOURCE (unrecogn ized section and content) DATE CREATED AUTHOR 09/11/2017 [facility] DATE CREATED AUTHOR AUTHOR'S ORGANIZ ATION 09/12/2021 [facility] DATE CREATED AUTHOR AUTHOR'S ORGANIZ ATION 01/31/2023 [facility] ([place] DATE CREATED AUTHOR AUTHOR'S ORGANIZ ATION 12/22/2023 [facility] DATE CREATED AUTHOR AUTHOR'S ORGANIZ ATION 01/17/2024 [facility] DATE CREATED AUTHOR AUTHOR'S ORGANIZ ATION 01/23/2024 [facility] DATE CREATED AUTHOR AUTHOR'S ORGANIZ ATION 07/30/2024 [facility] Goals (unrecognized section and content) Goals may be documented in a n alternate section No data available for this section No data available for this section Source Comments (unrecognize d section and content) In the event this informatio n is protected by the Federal Confidentiality of Alcohol and Drug Abuse Patient Records regulations: The Federal rules restrict any use of the information to criminally investigate or prosecute any alcohol or drug abuse patient.[facility] the event this information is protected by the Federal Confidentiality of Alcohol and Drug Abuse Patient Records regulations: The Federal rules restrict any use of the information to criminally investigate or prosecute any alcohol or drug abuse patient.[facility] the event this information is protected by the Federal Confidentiality of Alcohol and Drug Abuse Patient Records regulations: The Federal rules restrict any use of the information to criminally investigate or prosecute any alcohol or drug abuse patient.[facility] the event this information is protected by the Federal Confidentiality of Alcohol and Drug Abuse Patient Records regulations: The Federal rules restrict any use of the information to criminally investigate or prosecute any alcohol or drug abuse patient.[facility] the event this information is protected by the Federal Confidentiality of Alcohol and Drug Abuse Patient Records regulations: The Federal rules restrict any use of the information to criminally investigate or prosecute any alcohol or drug abuse patient.[facility] the event this information is protected by the Federal Confidentiality of Alcohol and Drug Abuse Patient Records regulations: The Federal rules restrict any use of the information to criminally investigate or prosecute any alcohol or drug abuse patient.[facility] the event this information is protected by the Federal Confidentiality of Alcohol and Drug Abuse Patient Records regulations: The Federal rules restrict any use of the information to criminally investigate or prosecute any alcohol or drug abuse patient.[facility] the event this information is protected by the Federal Confidentiality of Alcohol and Drug Abuse Patient Records regulations: The Federal rules restrict any use of the information to criminally investigate or prosecute any alcohol or drug abuse patient.[facility] the event this information is protected by the Federal Confidentiality of Alcohol and Drug Abuse Patient Records regulations: The Federal rules restrict any use of the information to criminally investigate or prosecute any alcohol or drug abuse patient.[facility] the event this information is protected by the Federal Confidentiality of Alcohol and Drug Abuse Patient Records regulations: The Federal rules restrict any use of the information to criminally investigate or prosecute any alcohol or drug abuse patient.[facility] the event this information is protected by the Federal Confidentiality of Alcohol and Drug Abuse Patient Records regulations: The Federal rules restrict any use of the information to criminally investigate or prosecute any alcohol or drug abuse patient.[facility] the event this information is protected by the Federal Confidentiality of Alcohol and Drug Abuse Patient Records regulations: The Federal rules restrict any use of the information to criminally investigate or prosecute any alcohol or drug abuse patient.[facility] the event this information is protected by the Federal Confidentiality of Alcohol and Drug Abuse Patient Records regulations: The Federal rules restrict any use of the information to criminally investigate or prosecute any alcohol or drug abuse patient.[facility] Reason for Visit (unrecogniz ed section and content) Reason Comments Urinary Problem Burning, frequency, pelvic pressure, x2 days. Reason Comments Pain, Throat Pt reported + Strep, Covid exposure pain throat pain rated 8, x2 days Garcia , fever. Reason Comments Patient Question Reason Comments Sore Throat Cough, intermittent fever x2 days Reason Comments Results Reason Comments Cough GARCIA, ST, SOB x5 days Reason Comments Mouth/Lip Problem Sore roof of mouth, GARCIA x1 day Reason Comments requesting different medication Reason Comments Urinary Frequency x 3 days, cough and sore throat x 2 days Patient Care team informatio n (unrecognized section and content) Care Team Personnel Name: PHYSICIAN, NONE Position: Physician Member Role: Primary Care Physician Name: Ginger CERDA DO Position: P4 Physician - General Surgery Member Role: Surgeon Address: Address: [facility] [address] Care Team Related Persons Name: YOU ALBERTS FOR RECORDS PERTAINING TO PATIENTS WHO ARE OR HAVE BEEN ENROLLED IN A CHEMICAL DEPENDENCY/SUBSTANCEABUSE PROGRAM, SOME INFORMATION MAY BE OMITTED. This clinical summary was aggregated from multiple sources. Caution should be exercised in using it in the provision of clinical care. This summary normalizes information from multiple sources, and as a consequence, information in this document may materially change the coding, format and clinical context of patient data. In addition, data may be omitted in some cases. CLINICAL DECISIONS SHOULD BE BASED ON THE PRIMARY CLINICAL RECORDS. [facility] [employer] provides no warranty or guarantee of the accuracy or completeness of information in this document.
[2025-03-16 15:08] LABS: HPV APTIMA, High Risk Positive (Negative)
== END | disposition home or self-care (01) ==
PROVIDERS: Visit Provider Nurse Practitioner Family
DX: Z12.4 Encounter for screening for malignant neoplasm of cervix (principal)
CPT/HCPCS: 87624; 88175; G0145